=== PATIENT | female | born 1990 | race Caucasian/White ===

== ENCOUNTER → 2018-04-05 13:06 | Outpatient (CLI) | payer OTHER, BC, SELFPAY ==
[2018-04-05 14:09] LABS: hCG Titer Quant., Serum < 1 mIU/mL (<9 non-preg)
== END ==
PROVIDERS: Family Provider Family Medicine; PCP Family Medicine; Referring Provider Obstetrics & Gynecology; Visit Provider Obstetrics & Gynecology
DX: N91.2 Amenorrhea, unspecified (principal)
CPT/HCPCS: 36415; 84702

== ENCOUNTER → 2018-04-16 15:41 | Outpatient (CLI) | payer OTHER, BC, SELFPAY ==
[2018-04-16 16:15] LABS: Absolute Lymphocyte Count 1.91 X10^3/ul (0.83-4.51); Absolute Neutrophil Count 3.9 X10^3/uL (2.0-7.7); Basophil# 0.02 X10^3/uL; Basophil% 0.3 % (0-1); Eosinophil# 0.21 X10^3/uL; Eosinophils% 3.2 % (0-5); Hematocrit 38.1 % (37-47); Hemoglobin 13.2 g/dl (12.0-15.0); Lymphocyte # 1.91 X10^3/ul (4.0); Mean Corp Hgb Conc 34.6 g/gl (32-36); Mean Corpuscular Hgb 31.4 pg (27.0-32.0); Mean Corpuscular Volume 90.5 fL (81-99); Mean Platelet Vol. 9.6 fl (6.2-12.0); Monocyte# 0.54 X10^3/uL; Monocyte% 8.2 % (0-10); Neutrophil % 59.1 % (47-70); Platelet Count 218 K/mm3 (150-450); RBC Distribution Width CV 11.9 % (11.6-14.6); RBC Distribution Width SD 38.2 fl (35.1-43.9); Red Blood Count 4.21 M/mm3 (4.2-5.4); White Blood Count 6.6 K/mm3 (4.4-11.0)
[2018-04-16 16:18] LABS: POSITIVE COUNT NO; POSITIVE DIFFERENTIAL NO; POSITIVE MORPHOLOGY NO
[2018-04-16 16:41] LABS: Thyroid Stim Hormone (TSH) 1.93 uIU/mL (0.358-3.74)
== END ==
PROVIDERS: Family Provider Family Medicine; PCP Family Medicine; Referring Provider Nurse Practitioner Women's Health; Visit Provider Nurse Practitioner Women's Health
DX: R53.83 Other fatigue (principal)
CPT/HCPCS: 36415; 84443; 85025

== ENCOUNTER → 2018-04-23 10:14 | Outpatient (CLI) | payer OTHER, BC, SELFPAY ==
[2018-04-23 12:38] LABS: Pregnancy, Serum, hCG Quali. NEGATIVE Negative (0-9 Nonpreg)
== END ==
PROVIDERS: Nurse Practitioner Adult Health; Family Provider Family Medicine; PCP Family Medicine; Visit Provider Family Medicine
DX: R42 Dizziness and giddiness (principal); R11.0 Nausea
CPT/HCPCS: 36415; 84703

== ENCOUNTER → 2018-11-06 | Outpatient (CLI) | payer OTHER, SELFPAY ==
[2018-04-16 15:12] VITALS: BMI 29.9
[2018-11-06 16:50] LABS: Hemoglobin A1c 5.2 % (4.2-6.3)
[2018-11-06 17:11] LABS: Estradiol 75.6 pg/mL; Progesterone Level 2.91 ng/mL (See Comment); T4 Free Direct 0.98 ng/dL (0.76-1.46); Thyroid Stim Hormone (TSH) 2.04 uIU/mL (0.358-3.74)
[2018-11-06 17:46] LABS: hCG Titer Quant., Serum < 1 mIU/mL (1-3)
[2018-11-08 11:39] LABS: Thyroid Peroxidase AB 17 IU/mL (0-34)
[2018-11-11 14:37] LABS: HPV Reflexed? NOT INDICATED
== END | disposition home or self-care (01) ==
LOC: WOBLAB 16:00
PROVIDERS: Visit Provider Obstetrics & Gynecology
DX: N92.6 Irregular menstruation, unspecified (principal); Z12.4 Encounter for screening for malignant neoplasm of cervix
CPT/HCPCS: 36415; 82670; 83036; 84144; 84403; 84439; 84443; 84481; 84702; 86376; 88175; G0145

== ENCOUNTER → 2018-11-11 | Outpatient (CLI) | payer OTHER, SELFPAY ==
--- NOTE | 2018-11-11 16:02 | US_ITS ---
STUDY: ULTRASOUND TRANSVAGINAL CLINICAL: Female, 28 years old. Infertility. TECHNIQUE: Transvaginal COMPARISON: None. FINDINGS: Normal uterine size measuring 7.6 cm in maximal craniocaudal dimension. There are no myometrial masses. Normal endometrial thickness measuring 3.7 mm. There are no endometrial masses, and there is no fluid in the endometrial cavity. Normal uterine cervix. Normal right ovary, measuring 3.7 x 3.0 x 1.9 cm. There are multiple follicles without a dominant cyst. There is a complex cystic focus within the left ovary measuring 8.7 x 6.6 x 5.4 cm. There are round echogenic nonshadowing foci within the mass. There are curvilinear foci within the cystic mass. There is minimal internal vascularity. There is minimal normal ovarian parenchyma visualized. There is a small amount free fluid in the pelvis. Polycystic ovary disease: No. US/Pelvic (Non ) IMPRESSION: 8.7 x 6.6 x 5.4 cm left ovarian complex cystic lesion with an appearance most consistent with an underlying dermoid. Electronically Signed: Bharti Reinoso MD at 20:34 EDT Tel , Service support ,
--- NOTE | 2018-11-11 16:07 | US_ITS ---
STUDY: ULTRASOUND TRANSVAGINAL CLINICAL: Female, 28 years old. Infertility. TECHNIQUE: Transvaginal COMPARISON: None. FINDINGS: Normal uterine size measuring 7.6 cm in maximal craniocaudal dimension. There are no myometrial masses. Normal endometrial thickness measuring 3.7 mm. There are no endometrial masses, and there is no fluid in the endometrial cavity. Normal uterine cervix. Normal right ovary, measuring 3.7 x 3.0 x 1.9 cm. There are multiple follicles without a dominant cyst. There is a complex cystic focus within the left ovary measuring 8.7 x 6.6 x 5.4 cm. There are round echogenic nonshadowing foci within the mass. There are curvilinear foci within the cystic mass. There is minimal internal vascularity. There is minimal normal ovarian parenchyma visualized. There is a small amount free fluid in the pelvis. Polycystic ovary disease: No. US/Transvaginal Non- IMPRESSION: 8.7 x 6.6 x 5.4 cm left ovarian complex cystic lesion with an appearance most consistent with an underlying dermoid. Electronically Signed: Bharti Reinoso MD at 20:34 EDT Tel , Service support ,
[2018-11-11 17:37] LABS: Estradiol 37.2 pg/mL; Follicle Stimulating Hormone 7.4 mIU/mL
== END | disposition home or self-care (01) ==
LOC: WOBLAB 15:21
PROVIDERS: Visit Provider Obstetrics & Gynecology
DX: N93.8 Other specified abnormal uterine and vaginal bleeding (principal)
CPT/HCPCS: 36415; 76830; 76856; 82670; 83001; 83516; 93976

== ENCOUNTER → 2018-11-21 | Outpatient (CLI) | payer OTHER, SELFPAY ==
--- NOTE | 2018-11-21 06:08 | CT_ITS ---
STUDY: CT PELVIS WITH CONTRAST REASON FOR EXAM: Female, 28 years old. LEFT ovarian cyst RADIATION DOSAGE (If Supplied By Facility): CTDIvol = ( 28.21 ) mGy, DLP = ( 841.75 ) mGycm TECHNIQUE: Transaxial imaging of the pelvis was performed without oral contrast. 100ML IV Isovue 300 was administered intravenously. Individualized dose optimization techniques were used for this CT. COMPARISON: None. FINDINGS: Normal urinary bladder. Normal visualized small intestine. Normal visualized colon. There is minimal free pelvic fluid which is nonspecific. There is a LEFT adnexal mass measuring 5.3 x 8 x 5.8 cm. This is predominantly fatty with areas of soft tissue density and calcification. The lesion is consistent with an ovarian dermoid. The RIGHT ovary is unremarkable. The uterus is within normal limits. Normal visualized pelvic arteries. Normal abdominal wall. Normal osseous structures. CT/Pelvis WITH IV Contrast IMPRESSION: There is a LEFT adnexal mass measuring 5.3 x 8 x 5.8 cm. This is predominantly fatty with areas of soft tissue density and calcification. The lesion is consistent with an ovarian dermoid. The uterus is within normal limits. There is minimal free pelvic fluid which is nonspecific. Electronically Signed: Oleg Cunningham MD at 6:44 EDT , Service support ,
== END | disposition home or self-care (01) ==
LOC: CT 05:59
PROVIDERS: Family Provider Family Medicine; PCP Family Medicine; Referring Provider Obstetrics & Gynecology; Visit Provider Obstetrics & Gynecology
DX: N83.202 Unspecified ovarian cyst, left side (principal)
CPT/HCPCS: 72193; Q9967

== ENCOUNTER 2019-01-02 19:02 | Emergency (ER) | payer OTHER, SELFPAY ==
[2019-01-02 19:03] VITALS: BP 132/72; PULSE 64; RESP 16; TEMP 36.8; O2SAT 100; BMI 29.1
--- NOTE | 2019-01-02 19:20 | RAD_ITS ---
STUDY: X-RAY - RIGHT HAND, ATTENTION THUMB FINGER REASON FOR EXAM: Female, 28 years old. Trauma TECHNIQUE: 3 view(s) of the finger were obtained. COMPARISON: None. FINDINGS: Normal metacarpal head. Normal metacarpophalangeal joint. Normal proximal phalanx. Normal middle phalanx. Normal distal phalanx. Normal proximal interphalangeal joint. There appears to be a subtle hairline fracture of the dorsal surface of the base of the distal phalanx extending to the articular surface. RAD/Finger(s) Min 2 Views IMPRESSION: Nondisplaced intra-articular fracture of the base of the distal phalanx Electronically Signed: Kirby Hdz MD at 19:39 EDT , Service support ,
--- NOTE | 2019-01-02 21:22 | ED.DCSUM_ITS ---
- ER Visit Summary Date of Service: 01/02/19 Chief Complaint: Left thumb injury History of Present Illness: The patient is a 28 F who presents with a left thumb injury that occurred today. Patient was playing volleyball and had an axial load to her left thumb. Patient states the pain and swelling is gotten progressively worse. Patient denies any paresthesias or weakness. Patient denies any other injuries. Patient states her pain is worse with movement of her thumb. Physical Examination: Vital signs are stable. Patient is afebrile. Patient is in no acute distress. There is tenderness, edema, and ecchymosis over the distal phalanx of the right thumb. There is no obvious deformity noted. Range of motion was limited in flexion and extension of the IP joint of the right thumb. Sensation was intact light touch in all digits. Capillary refill is less than 2 seconds in all digits. Test Results: X-rays of the right thumb were obtained. There is nondisplaced fracture of the distal phalanx of the right thumb. Emergency Department Course and Treatment: Patient was placed in aluminum splint. Patient was instructed to ice and elevate the right thumb. Patient was instructed to take Tylenol or ibuprofen as needed for pain. Patient was instructed to follow-up with her primary care physician in 5 to 7 days. Patient was also given a referral for orthopedics for follow-up if necessary. Patient understood and was agreeable with the plan. All questions were answered. Disposition: Discharge home Impression: Fracture right first distal phalanx This note was generated with [employer] dictation software. It may contain incorrect words, spelling, and punctuation that were not noted in review of the chart prior to signing ED Disposition - Plan for ED Patient: Disposition: Home or Assisted Living Diagnosis: Fracture of distal phalanx of right thumb Instructions: FRACTURE, Finger (Closed) Referrals: Nicci Costello MD [Primary Care Provider] - 5-7 Days Tomas Flores MD [STAFF PHYSICIAN] - 10-14 Days if not better
--- NOTE | 2019-01-13 13:44 | PCM.HP.STD ---
Problem List (1) Left ovarian cyst Status: Acute History of Present Illness Date of Admission: 01/14/19 The patient is a 28 year old F, nulligravid with left ovarian cyst. Cyst is suspected to be a dermoid. ] Past Medical History Allergies No Known Allergies Allergy (Verified 01/07/19 13:05) Home Medications: Ambulatory Orders Medication Instructions Recorded Multivitamin [Multiple Vitamins] 1 ea PO DAILY 01/02/19 Surgical History: Surgical History (Last Updated 04/16/18 @ 15:15 by María Elena Orourke) History of urinary tract surgery Z98.890 Surgical History: - - bilateral ureteral implantation Smoking Status: Never smoker Review of Systems Constitutional: Denies: Chills, Fever, Weight Change HEENT: Denies: Difficulty Hearing, Difficulty Swallowing, Nasal bleeding, Nasal Congestion, Sore Throat Cardiovascular: Denies: Chest Pain, Palpitations Respiratory: Denies: Shortness of Breath, Wheezing Gastrointestinal: Denies: Constipation, Diarrhea, Nausea, Vomiting Genitourinary: Denies: Dysuria, Frequency, Hematuria, Incontinence, Urgency Musculoskeletal: Denies: Joint Pain, Muscle pain Skin: Denies: Lesions, Skin Changes Neurological: Denies: Focal weakness, Numbness Psychiatric: Denies: Anxiety, Depression Endocrine: Denies: Heat/ Cold Intolerance Hematologic/ Lymphatic: Denies: Easy Bleeding VTE Information - Inpt Only VTE Present on Admission: No VTE Mechan Device Prophylaxis: SCD's VTE Pharm Prophylaxis ordered?: No Reason prophylaxis not ordered:: Procedure Not Indicated Subjective: Healthy appearing female of stated age. - Physical Exam General: No apparent distress, Well developed, Well nourished HEENT: PERRLA, EOMI, Normocephalic Neck: No Nodes, No Nuchal Rigidity, Thyroid Normal Size and Texture Lungs: Clear to auscultation - bilaterally Cardiovascular: Regular rate, No murmurs, No rub noted Abdomen: Soft, Non Tender, Non-Distended, - - No guarding, hepatomegaly, splenomegaly, rebound tenderness Extremities: No clubbing, No cyanosis, No edema, No Calf Tenderness Skin: No rashes, Other - No ulcers, lesions Musculoskeletal: No Tenderness to Palpation of Joints or Extremities, No Muscle Wasting Lymphatic: No Cervical, Supraclavicular, or Inguinal Adenopathy Neurological: Cranial nerves II-XII grossly intact Psych/Mental Status: Alert and oriented to time, place, person, mood and affect Vital Signs Temp Pulse Resp BP Pulse Ox 98.2 F 64 16 132/72 H 100 01/02/19 19:03 01/02/19 19:03 01/02/19 19:03 01/02/19 19:03 01/02/19 19:03 Oxygen Delivery Method Room Air Weight: 175 lb Body Mass Index (BMI) 29.1 Assessment/Plan All Active Problems (Last Reviewed 04/16/18 @ 15:15 by María Elena Orourke) Left ovarian cyst (Acute) 1. Left ovarian cyst suspected dermoid cyst from imaging studies ;planned removal and possible oophorectomy desires fertility - bilateral chromatubation planned
== END 2019-01-02 21:43 | disposition home or self-care (01) ==
PROVIDERS: Emergency Provider Emergency Medicine; Family Provider Family Medicine; PCP Family Medicine
DX: S62.524A Nondisplaced fracture of distal phalanx of right thumb, initial encounter for closed fracture (principal); X50.1XXA Overexertion from prolonged static or awkward postures, initial encounter; Y93.68 Activity, volleyball (beach) (court); Y92.9 Unspecified place or not applicable
CPT/HCPCS: 73140; 99283

== ENCOUNTER 2019-01-14 16:20 | Inpatient (IN) | payer OTHER, SELFPAY ==
[2019-01-03 10:22] LABS: Hematocrit 37.4 % (37-47); Hemoglobin 12.6 g/dl (12.0-15.0); Mean Corp Hgb Conc 33.7 g/gl (32-36); Mean Corpuscular Hgb 30.6 pg (27.0-32.0); Mean Corpuscular Volume 90.8 fL (81-99); Mean Platelet Vol. 9.8 fl (6.2-12.0); Platelet Count 211 K/mm3 (150-450); RBC Distribution Width CV 12.3 % (11.6-14.6); RBC Distribution Width SD 40.6 fl (35.1-43.9); Red Blood Count 4.12 M/mm3 (4.2-5.4)
[2019-01-03 10:36] LABS: Scan Indicated on CBC? Y/N NO
[2019-01-03 10:37] LABS: Internal QC Validated? YES +Cl - CLEAR BKGD; Pregnancy, Urine Negative Negative
[2019-01-03 10:39] LABS: International Normalized Ratio 1.3; Prothrombin Time (Protime)PT. 15.8 SECONDS (11.7-14.9)
[2019-01-03 10:40] LABS: Partial Thromboplast Time 39.7 Seconds (24.1-36.2)
[2019-01-14] VITALS (9 sets, daily range): BP systolic 104–124; BP diastolic 54–77; PULSE 55–97; RESP 16–18; TEMP 36.3–37.5; O2SAT 97–100; BMI 29.7
[2019-01-14 11:51] LABS: Internal QC Validated? YES +Cl - CLEAR BKGD; Pregnancy, Urine Negative Negative
--- NOTE | 2019-01-14 13:00 | CYST_PTH ---
PATIENT: EULALIA STEVENS LOC: [facility] U#:[id number] AGE/SX: 28/F ROOM: [facility]316 RE01/14/[address]: Dr. Masha Mendoza MD : 1990 BED: 1 DIS: 01/15/2019 SPEC #: [id number] RECD: 01/14/19 16:38 STATUS: JUDIT REBoni #: [id number] CHRISTINE: 01/14/19 13:[address]: Masha Mendoza DEPT: SURGICAL PATHOLOGY RECD BY: Evin Mccormack ENTERED: 01/15/19 12:33 SP TYPE: Cyst OTHR DR: Dr. Nicci Costello MD Tissues: OVARIAN CYST Procedures: Decalcification bone/plaque Surgery Specimen Level V HEADER OPERATION: Laparoscopic left oophorectomy PRE-OP DIAGNOSIS: Left ovarian cyst TISSUE SUBMITTED: Left ovarian cyst MICROSCOPIC DIAGNOSIS Left ovarian cyst, oophorectomy: Ovary - Mature cystic teratoma (dermoid cyst). Fallopian tube - no pathologic diagnosis. EDGARDO:jose 01/20/19 MICROSCOPIC DESCRIPTION Slides are reviewed. GROSS DESCRIPTION Received in fixative is one container labeled with the patient's name and designated left ovarian cyst. The specimen consists of a cystic ovary weighing 137 gm and detached fallopian tube. The fallopian tube measures 5.5 cm in length and 0.5 cm in diameter. The fimbrial end is identified. The portion of ovarian cyst appears to be adherent to the fimbrial end of the fallopian tube. Sections reveal unremarkable cut surfaces. The cystic ovary measures 8 x 6 x 5 cm. Portion of the capsule appears to be peeled off from the surface. The outer surface appears smooth. The outer surface of the resection margin is inked black and the portion of rough surface, resection margin is inked blue. The cystic ovary is distended with yellowish sebum-like material. The cyst wall is smooth and measures 0.1 cm in greatest dimension. A focal solid area is noted measuring 2.5 x 1.5 x 1 cm. This area contains a portion of bone. Utility Lineman sections are submitted in four cassettes as follows: 1 - fallopian tube including adherent portion of the cystic ovary, 2 - cystic ovary including solid portion of the cyst, 3 - more sections of the ovary, 4 - solid portion of the cystic ovary with bone after decalcification. / EDGARDO:jose 01/15/19 TC:1 CPT: 42398, 24552
--- NOTE | 2019-01-14 13:00 | HP.PCM_ITS ---
History Date of Admission: 01/14/19 History of this : This is a 28 year-old, G [], P [], at weeks gestational age. Surgical History: Surgical History (Last Updated 04/16/18 @ 15:15 by María Elena Orourke) History of urinary tract surgery Z98.890 Allergies No Known Allergies Allergy (Verified 01/14/19 11:46) Home Medications: Home Medications Multivitamin [Multiple Vitamins] 1 ea PO DAILY 01/02/19 Smoking Status: Never smoker History Past Pregnancies: Past Pregnancies Delivery Date Name GA/Weeks Outcome Route Weight Infant Gender Labor Length Anesthesia Delivery Location Provider FOB Review of Systems Constitutional: Denies: Chills, Fever, Weight Change HEENT: Denies: Difficulty Hearing, Difficulty Swallowing, Nasal bleeding, Nasal Congestion, Sore Throat Cardiovascular: Denies: Chest Pain, Palpitations Respiratory: Denies: Shortness of Breath, Wheezing Gastrointestinal: Denies: Constipation, Diarrhea, Nausea, Vomiting Genitourinary: Denies: Dysuria, Frequency, Hematuria, Incontinence, Urgency Musculoskeletal: Denies: Joint Pain, Muscle pain Skin: Denies: Lesions, Skin Changes Neurological: Denies: Focal weakness, Numbness Psychiatric: Denies: Anxiety, Depression Endocrine: Denies: Heat/ Cold Intolerance Hematologic/ Lymphatic: Denies: Easy Bleeding Physical Exam Vitals: Vital Signs Temp Pulse Resp BP Pulse Ox 98.8 F 82 16 116/77 100 01/14/19 11:46 01/14/19 11:46 01/14/19 11:46 01/14/19 11:46 01/14/19 11:46 General: Alert, Oriented x3, No apparent distress HEENT: Atraumatic, Normocephalic. Negative for: Thyromegaly, Lymphadenopathy Cardiovascular: Regular rate, Regular Rhythm Lungs: Clear to auscultation Abdomen: Bowel Sounds Present, Gravid Neurological: Deep Tendon Reflexes 2+/4 and Symmetrical, Neuro grossly intact [employer]NAGER: Normal external genitalia. Negative for: Vulvar lesions Assessment/Plan All Active Problems (Last Reviewed 04/16/18 @ 15:15 by María Elena Orourke) Left ovarian cyst (Acute) This is a 28 year-old, G [], P [], at weeks gestational age. 1. Suspected left dermoid cyst planned removal the preop preparation, the intraop procedures and the post op recovery reviewed. The risks of ovary removal, infection, bleeding and other organ damage including bladder, bowel and ureteral injury reviewed, accepted and consented. 2. Infertility chromapertubation
[2019-01-14] MEDS: Ketorolac 30 MG/ML Syringe IV ×2 (14:43→19:54)
--- NOTE | 2019-01-14 14:53 | PCM.OPRPT ---
Report of Operation Date of Procedure: 01/14/19 Pre-Operative Diagnosis: Left adnexal mass and infertility Post-Operative Diagnosis: Same plus lack of fallopian tube spillage with chromotubation Surgery/Procedure Performed:: Diagnostic laparoscopy, operative laparotomy, left salpingo-oophorectomy, chromotubation Description of Surgical Findings:: Uterus was sounded to approximately 9 cm in anterior position. Upon entry into the abdominal cavity it was noted that was a very large left ovarian cyst that was somewhat adhesed to the sidewall and measuring larger than the uterus. Was also noted that during chromotubation there was no spillage of the dye through the remaining right fallopian tube Type of Anesthesia:: General Anesthesiologist: Richie Cline Special Medications: Cefotetan. 2 g IV preop Specimen's removed: Left ovary and left fallopian tube Drains: None Estimated Blood Loss (mL): Minimal Fluids Replaced: Lactated Ringer Description of Procedure: presented in NPO status to the OR. Placed on OR bed and underwent General anesthesia after appropriate time out occurred. Placed in dorsal lithotomy position via Adan stirrups. Weighted speculum to vagina and uterine manipulator to cervix and wilkins to the bladder. Changed gloves. Incision at umbilicus and veress needle placed. Water test confirmed abdominal placement. 2 L CO2 placed into the abdomen. Veress removed and replaced with 10/11 disposable trocar. 2 additional 5mm disposable trocars at right and left lower quadrants. Direct visualization and hemostasis noted. Enlarged left ovary completely consistent with the cyst and distorted fallopian tube. Ligasure energy used to cauterize and transect the IP ligament and the uterine - ovarian ligament. Adhesive pieces removed from the pelvic side wall as well. Once ovary free, the 10 endocatch bag placed into the umbilicus. The cyst did not fit into the bag. It was also determined the 15 endocatch bag would not accommodate the cyst either. Laparotomy incision at prior Phannensteil incision site for ureteral implantation to the bladder occurred with scalpel. The fascia was knicked in the midline and incised bilateral. The rectus muscle removed from the fascia superior and inferior. Peritoneum was entered sharply and extended to accommodate retractors. The freed ovarian cyst was located and brought through the incision intact. Irrigation of the pelvis occurred. Rectus muscle re-approximated in the midline. The fascial layer closed with 0-vicryl suture in running, interlocking stitch. Irrigation of the subcuticular layer. 3-0vicryl used to close this layer in running stitch. Irrigation again and skin closed with 4-0 Monocryl. CO2 infusion into abdomen once again. Irrigation of pelvis and hemostasis noted. I infused the methylene blue into the uterine manipulator with no blue dye spillage to the abdomen, through the fallopian tube. Resistance noted with attempted push of dye through the cervix/uterus. All instruments removed from the vagina included wilkins. Changed gloves. Once again surveyed the pelvis and abdomen via laparoscope. Hemostasis noted. Bilateral ureters peristalsing. Trocars removed under direct visualization. CO2 removed from abdomen. Umbilicus closed with 0 vicryl at the fascia and subcuticular regions. 3-0 vicryl at prior 5mm trocar sites. Sponge, instrument and needle counts correct x 2. Tissue to pathology. Grafts/Implants Used: None - Complications None - Admit VTE Documentation VTE Present on Admission: No VTE Mechan Device Prophylaxis: SCD's VTE Pharm Prophylaxis ordered?: No Reason prophylaxis not ordered:: Procedure Not Indicated
[2019-01-14] MEDS: Lactated Ringers 1,000 ML 125 ML IV ×2 (16:04→21:13)
[2019-01-14] MEDS: 0.9% NaCl Peripheral Flush Adult/Peds IV (21:01)
[2019-01-14] MEDS: Ondansetron 4 MG/2 ML Vial IV (21:01)
--- NOTE | 2019-01-14 21:45 | NURSING ---
cps called to see pt for incentive spirometer instruction post op
--- NOTE | 2019-01-14 21:52 | PCM.PN.BLA ---
Progress Note Called by RN: pt with significant nasal congestion. Requesting RX for this. BPs wnl. Not hypertensive Sudafed 30 mg po q 6 hr prn Afrin nasal spray 1 spray per nostril bid prn congestion.
[2019-01-14] MEDS: Docusate Sodium 100 MG Capsule PO (22:48)
[2019-01-15] MEDS: Acetaminophen 500 MG Tablet 1000 MG PO (00:33)
[2019-01-15] MEDS: 0.9% NaCl Peripheral Flush Adult/Peds IV ×2 (01:12→06:30)
[2019-01-15] MEDS: Ketorolac 30 MG/ML Syringe IV ×2 (01:13→06:33)
[2019-01-15 01:15] VITALS: BP 108/54; PULSE 74; RESP 16; TEMP 37.6; O2SAT 97
[2019-01-15] MEDS: Lactated Ringers 1,000 ML 125 ML IV (05:07)
[2019-01-15] MEDS: Ondansetron 4 MG/2 ML Vial IV (06:33)
[2019-01-15 06:40] LABS: Hematocrit 33.4 % (37-47); Hemoglobin 11.5 g/dL (12.0-15.0); Mean Corp Hgb Conc 34.4 g/dL (32-36); Mean Platelet Vol. 9.9 fl (6.2-12.0); Platelet Count 181 K/mm3 (150-450); RBC Distribution Width CV 11.6 % (11.6-14.6); Red Blood Count 3.71 M/mm3 (4.2-5.4); White Blood Count 8.3 K/mm3 (4.4-11.0)
[2019-01-15 06:45] VITALS: BP 112/59; PULSE 72; RESP 16; TEMP 37.2; O2SAT 100
[2019-01-15 08:19] VITALS: O2SAT 97
--- NOTE | 2019-01-15 08:40 | DCINST_ITS ---
Discharge Diet: - - soft diet x 3 days and then slow progression to normal diet. Increase water intake to a minimum of 120 ounces daily x 1 week. Discharge Activity: Return to Normal Activity, May Not Drive - while taking narcotic pain medications., May Shower May resume sexual activity in: 4 weeks Weight Bearing Status: Full weight bearing Lifting Restrictions: 5 pounds Additional Activity Instructions:: Ambulate often with periods of rest in between. Call your doctor if your incision/area has: Sudden Increased Bleeding Call your doctor if you observe: Fever of 101 or Higher, Inability to urinate, Inability to have a bowel movement, Using more than one pad per hour Remove Dressing in (days):: 1 - Remove all dressings with warm, soapy water on 01/16/19 Cleanse incision/area with: Soap & Water Allergies/Adverse Reactions: Allergies No Known Allergies Allergy (Verified 01/14/19 11:46) Medications to take at Discharge Multivitamin [Multiple Vitamins] 1 ea PO DAILY 01/02/19 Primary Care Physician: Nicci Costello MD [Primary Care Provider] - Test Results: Test results from this visit will be discussed in further detail at your follow- up appointment, if applicable. Please Follow Up With: Masha Mendoza MD When: Next week - call for appointment
[2019-01-15] MEDS: Docusate Sodium 100 MG Capsule PO (09:18)
--- NOTE | 2019-01-15 09:18 | PCM.PN.OB ---
Subjective: Ambulating well. Has had vomiting but had retained the scolpolamine patch. Voiding well. No flatus. - Physical Exam General: No apparent distress, Well developed, Well nourished HEENT: PERRLA, EOMI, Normocephalic Neck: No Nodes, No Nuchal Rigidity, Thyroid Normal Size and Texture Lungs: Clear to auscultation - bilaterally Cardiovascular: Regular rate, No murmurs, No rub noted Abdomen: Soft, Non Tender, Non-Distended, - - No guarding, hepatomegaly, splenomegaly, rebound tenderness. Phannensteil incision with serosanguinous fluid and instructed to remove the telfa and place gauze for absorption Extremities: No clubbing, No cyanosis, No edema, No Calf Tenderness Skin: No rashes, Other - No ulcers, lesions Musculoskeletal: No Tenderness to Palpation of Joints or Extremities, No Muscle Wasting Lymphatic: No Cervical, Supraclavicular, or Inguinal Adenopathy Neurological: Cranial nerves II-XII grossly intact Psych/Mental Status: Alert and oriented to time, place, person, mood and affect Vital Signs Temp Pulse Resp BP Pulse Ox 98.9 F 72 16 112/59 L 97 01/15/19 06:45 01/15/19 06:45 01/15/19 06:45 01/15/19 06:45 01/15/19 08:19 Oxygen Delivery Method Room Air Weight: 179 lb 0.246 oz Body Mass Index (BMI) 29.7 Intake and Output for Last 24 Hours 01/13/19 01/14/19 01/15/19 23:59 23:59 23:59 Intake Total 2256 / 2256 1020 / 1020 Output Total 850 / 850 900 / 900 Balance 1406 / 1406 120 / 120 Laboratory Tests Past 24 Hrs 01/14/19 01/15/19 11:30 05:40 WBC 8.3 RBC 3.71 L Hgb 11.5 L Hct 33.4 L MCV 90.0 MCH 31.0 MCHC 34.4 RDW Std Deviation 38.0 RDW Coeff of Nicol 11.6 Plt Count 181 MPV 9.9 Urine Test Negative Medical Necessity - Tobacco Use Smoking Status: Never smoker Assessment/Plan All Active Problems (Last Reviewed 04/16/18 @ 15:15 by María Elena Orourke) Left ovarian cyst (Acute) 1. POD #1 - Operative laparotomy for LSO ambulating well voiding well needs flatus prior to discharge attempt glycerin suppository
--- NOTE | 2019-01-15 11:10 | CASEMGMT ---
RN [facility] Face to Face with patient for initial transition planning/care coordination assessment. RN CM introduced self and role at [facility]. Patient lying in bed, alert and oriented, at bedside. Patient willing to participate in assessment and is able to answer all questions appropriately. Care providers, pharmacy, and demographics verified. Patient wishes to discharge home, denies need for home health at this time. Chart reviewed and no needs identified. Patient states she has no further needs or concerns at this time. CM to follow for discharge planning needs that may arise. Disposition Plan: Patient to discharge home with family support and follow-up plans in place.
== END 2019-01-15 11:55 | disposition home or self-care (01) | DRG 743 ==
LOC: SDC 01-15 08:49
PROVIDERS: Anesthesiology; Admitting Provider Obstetrics & Gynecology; Family Provider Family Medicine; PCP Family Medicine; Referring Provider Obstetrics & Gynecology; Visit Provider Obstetrics & Gynecology
PROC: 0UT14ZZ Resection of Left Ovary, Percutaneous Endoscopic Approach (ICD-10-PCS; CPT 58720; principal; 2019-01-14 12:45)
DX: D27.1 Benign neoplasm of left ovary (principal); N97.9 Female infertility, unspecified; R09.81 Nasal congestion
CPT/HCPCS: 36415; 81025; 85027; 85610; 85730; 88305; 88307; 88311; J7120; A4216; J2405; Q9968

== ENCOUNTER → 2019-02-04 | Outpatient (CLI) | payer OTHER, SELFPAY ==
[2019-01-14 16:33] VITALS: BMI 29.7
[2019-02-04 11:14] LABS: Glucose GTT-30 minutes 111 mg/dL (110-170)
[2019-02-04 11:16] LABS: AST(SGOT) 11 U/L (15-37); Alanine Aminotransfer ALT/SGPT 15 U/L (13-56); Albumin, Serum 3.7 g/dL (3.2-5.0); Alkaline Phosphatase 48 U/L (45-117); BUN 12 mg/dL (7-18); Bilirubin, Direct 0.07 mg/dL (0.00-0.30); Calcium,Total 8.7 mg/dL (8.5-10.1); Chloride 109 mmol/L (98-107); Creatinine, Serum 0.75 mg/dL (0.55-1.02); EST Glomerular Filtration Rate 99 mL/min (>60); Est Glom Filt Rate - Afr Amer 120 mL/min (>60); Globulin 3.6 g/dL (2.2-4.2); Glucose 84 mg/dL (74-106); Phosphorus 2.8 mg/dL (2.5-4.9); Potassium 4.3 mmol/L (3.5-5.1); Protein, Total 7.3 g/dL (6.4-8.2); Sodium Level 141 mmol/L (136-145)
[2019-02-04 11:22] LABS: Glucose GTT- Fasting 87 mg/dL (74-106)
[2019-02-04 12:20] LABS: Glucose GTT- 1 Hour 81 mg/dL (120-170)
[2019-02-04 13:07] LABS: Glucose GTT- 2 Hour 80 mg/dL (70-120)
== END | disposition home or self-care (01) ==
LOC: LAB 09:34
PROVIDERS: Family Provider Family Medicine; PCP Family Medicine; Referring Provider Obstetrics & Gynecology Reproductive Endocrinology; Visit Provider Obstetrics & Gynecology Reproductive Endocrinology
DX: E16.8 Other specified disorders of pancreatic internal secretion (principal)
CPT/HCPCS: 36415; 80069; 82247; 82248; 82951; 82952; 83525; 84075; 84156; 84450; 84460

== ENCOUNTER → 2019-06-26 | Outpatient (CLI) | payer OTHER, SELFPAY ==
[2019-01-14 16:33] VITALS: BMI 29.7
[2019-06-26 08:35] LABS: hCG Titer Quant., Serum 130 mIU/mL (1-3)
== END | disposition home or self-care (01) ==
LOC: LAB 07:40
PROVIDERS: Family Provider Family Medicine; PCP Family Medicine; Referring Provider Obstetrics & Gynecology Reproductive Endocrinology; Visit Provider Obstetrics & Gynecology Reproductive Endocrinology
DX: Z32.00 Encounter for pregnancy test, result unknown (principal)
CPT/HCPCS: 36415; 84702

== ENCOUNTER → 2019-06-30 06:44 | Outpatient (CLI) | payer OTHER, SELFPAY ==
[2019-01-14 16:33] VITALS: BMI 29.7
[2019-06-30 07:25] LABS: hCG Titer Quant., Serum 803 mIU/mL (1-3)
== END ==
PROVIDERS: Family Provider Family Medicine; PCP Family Medicine; Referring Provider Obstetrics & Gynecology Reproductive Endocrinology; Visit Provider Obstetrics & Gynecology Reproductive Endocrinology
DX: Z32.01 Encounter for pregnancy test, result positive (principal)
CPT/HCPCS: 36415; 84702

== ENCOUNTER → 2019-08-28 14:30 | Outpatient (CLI) | payer OTHER, SELFPAY ==
[2019-01-14 16:33] VITALS: BMI 29.7
[2019-08-28 16:11] LABS: Amphetamine Urine VISTA NEGATIVE (<1000 ng/mL); Barbiturate Urine VISTA NEGATIVE (< 200 ng/mL); Benzodiazepine Urine VISTA NEGATIVE (< 200 ng/mL); Cocaine Urine VISTA NEGATIVE (< 300 ng/mL); Ecstacy Urine VISTA NEGATIVE (< 500 ng/mL); Methadone Urine VISTA NEGATIVE (< 300 ng/mL); PCP Urine VISTA NEGATIVE (< 25 ng/mL); THC Urine VISTA NEGATIVE (< 50 ng/mL); Vista UDS pH Range 6
[2019-08-29 10:18] LABS: HIV - WCH Non-Reactive (Nonreactive); Hepatitis C Antibody Non-Reactive (Nonreactive)
== END ==
PROVIDERS: PCP Family Medicine; Referring Provider Obstetrics & Gynecology; Visit Provider Obstetrics & Gynecology
DX: O09.819 Supervision of pregnancy resulting from assisted reproductive technology, unspecified trimester (principal); Z3A.00 Weeks of gestation of pregnancy not specified
CPT/HCPCS: 36415; 80307; 86703; 86803; 87086; 87088

== ENCOUNTER → 2019-12-05 12:52 | Outpatient (CLI) | payer OTHER, SELFPAY ==
[2019-01-14 16:33] VITALS: BMI 29.7
[2019-12-05 13:02] LABS: Hematocrit 36.2 % (37-47); Hemoglobin 12.4 g/dL (12.0-15.0); Mean Corp Hgb Conc 34.3 g/dL (32-36); Mean Corpuscular Hgb 32.2 pg (27.0-32.0); Mean Platelet Vol. 9.8 fl (6.2-12.0); Platelet Count 220 K/mm3 (150-450); RBC Distribution Width CV 13.2 % (11.6-14.6); RBC Distribution Width SD 45.1 fl (35.1-43.9); Red Blood Count 3.85 M/mm3 (4.2-5.4); White Blood Count 9.4 K/mm3 (4.4-11.0)
[2019-12-05 13:25] LABS: Glucose Challenge Gest 1H 50g 102 mg/dL (70-140)
== END ==
PROVIDERS: PCP Family Medicine; Referring Provider Obstetrics & Gynecology; Visit Provider Obstetrics & Gynecology
DX: Z34.80 Encounter for supervision of other normal pregnancy, unspecified trimester (principal)
CPT/HCPCS: 36415; 82950; 85027

== ENCOUNTER → 2020-01-29 07:26 | Outpatient (CLI) | payer OTHER, SELFPAY ==
[2019-01-14 16:33] VITALS: BMI 29.7
[2020-01-29 10:18] LABS: Hepatitis C Antibody Non-Reactive (Nonreactive)
== END ==
PROVIDERS: Advanced Practice Midwife; PCP Family Medicine; Referring Provider Advanced Practice Midwife; Visit Provider Advanced Practice Midwife
DX: Z34.03 Encounter for supervision of normal first pregnancy, third trimester (principal)
CPT/HCPCS: 36415; 86803

== ENCOUNTER 2020-03-11 20:55 | Inpatient (IN) | payer OTHER, SELFPAY ==
[2019-01-14 16:33] VITALS: BMI 29.7
[2020-03-11 21:05] VITALS: BP 123/82; PULSE 83; TEMP 37.2; O2SAT 98
[2020-03-11 21:15] VITALS: BMI 34.6
[2020-03-11] MEDS: 0.9% Saline Lock 10 ML Syringe IV (21:30)
--- NOTE | 2020-03-11 21:46 | PCM.HP.OB ---
- Problem List (1) 41 weeks gestation of Status: Acute (2) resulting from assisted reproductive technology Status: Acute History Date of Admission: 01/14/19 Final YARA: 03/04/20 Gestational age: 41 Weeks and 0 Days History of this : This is a 29 year-old, G [1], P [0], at 41 weeks gestational age here for induction of labor for post-dates. Patient denies any loss of fluid, vaginal bleeding or regular contractions. Positive movement. resulted from assisted reproductive technology (embryo transfer). course has been uncomplicated. Surgical History: Surgical History (Last Updated 04/16/18 @ 15:15 by María Elena Orourke) History of urinary tract surgery Z98.890 Allergies No Known Allergies Allergy (Verified 03/11/20 21:15) Home Medications: Home Medications Aspirin [Aspirin, Baby] 81 mg PO DAILY@0800 03/11/20 Vit No.130/Iron/Folic [ Tablet] 1 ea PO DAILY 03/11/20 Smoking Status: Never smoker Number of Fetus(es): 1 NST - FHR Rate Baby A Baseline: 135 Variability:: Moderate Accelerations:: 15 x 15 Decelerations:: None NST Reactive:: Yes FHR Category:: Category I Uterine Activity:: irritability History Past Pregnancies: Past Pregnancies Delivery Date Name GA/ Weeks Outcome Route Wt Sex Labor Length Anesthesia Delivery Location Provider FOB Labs: A+ Rubella - non immune HB- negative RPR- NR GC/CH - neg GBS neg COVID 19 - negative Review of Systems Constitutional: Denies: Anorexia, Chills, Fever Eyes: Denies: Blurred vision HEENT: Denies: Head Aches Cardiovascular: Denies: Chest Pain Respiratory: Denies: Cough, Shortness of Breath Gastrointestinal: Denies: Abdominal Pain Genitourinary: Denies: Dysuria Neurological: Denies: Blurred vision, Headaches Physical Exam Vitals: Vital Signs Temp Pulse BP Pulse Ox 98.9 F 83 123/82 H 98 03/11/20 21:05 03/11/20 21:05 03/11/20 21:05 03/11/20 21:05 General: Alert, Oriented x3, Cooperative HEENT: Atraumatic Cardiovascular: Regular rate Lungs: Normal air movement Abdomen: Soft, Non Tender, Gravid Neurological: Cranial nerves II-XII grossly intact Estimated gestational size: Appropriate for gestational size Assessment/Plan All Active Problems (Last Reviewed 04/16/18 @ 15:15 by María Elena Orourke) Left ovarian cyst (Acute) 41 weeks gestation of (Acute) resulting from assisted reproductive technology (Acute) This is a 29 year-old, G [1], P [0], at 41 weeks gestational age for induction of labor. Admit to labor and delivery Labs per protocol IV fluids per policy GBS negative Start Cytotec 25 mcg PO every [address] Desir bulb in the morning Dr. Singleton notified of admission and is collaborating physician
[2020-03-11 22:18] LABS: Absolute Lymphocyte Count 1.75 X10^3/uL (0.83-4.51); Absolute Neutrophil Count 6.4 X10^3/uL (2.0-7.7); Basophil# 0.02 X10^3/uL; Basophil% 0.2 % (0-1); Eosinophil# 0.09 X10^3/uL; Hematocrit 35.9 % (37-47); Hemoglobin 12.8 g/dL (12.0-15.0); Lymphocyte # 1.75 X10^3/ul (4.0); Lymphocyte % 19.4 % (19-41); Mean Corp Hgb Conc 35.7 g/dL (32-36); Mean Corpuscular Hgb 33.2 pg (27.0-32.0); Mean Corpuscular Volume 93.2 fL (81-99); Mean Platelet Vol. 10.4 fl (6.2-12.0); Monocyte# 0.76 X10^3/uL; Monocyte% 8.4 % (0-10); NRBC Flagged by Analyzer 0 % (0-5); Neutrophil # 6.37 X10^3/uL (2.7-7.7); Neutrophil % 70.6 % (47-70); Platelet Count 182 K/mm3 (150-450); RBC Distribution Width CV 12.2 % (11.6-14.6); RBC Distribution Width SD 41.4 fl (35.1-43.9); Red Blood Count 3.85 M/mm3 (4.2-5.4)
[2020-03-11] MEDS: miSOPROStol 25 MCG TABLET PO (22:35)
[2020-03-11 22:37] VITALS: BP 119/80; PULSE 85; TEMP 37.1; O2SAT 98
[2020-03-11 22:38] VITALS: BP 119/80; PULSE 85
[2020-03-12] VITALS (35 sets, daily range): BP systolic 113–137; BP diastolic 63–90; PULSE 66–106; TEMP 36.8–37.7; O2SAT 89–100
[2020-03-12] MEDS: miSOPROStol 25 MCG TABLET PO ×2 (02:35→06:40)
--- NOTE | 2020-03-12 07:15 | PCM.PN.BLA ---
Progress Note Patient is a at 41.1 weeks gestation here for induction of labor for postdates GBS negative Cytotec 25 mcg PO every 4 hours- has receive 3 doses CE- Closed/Thick/ High Category 1 tracing/ NST reactive Continue plan of care Anticipate STROKE Vital Signs/Narrative: Vital Signs Pulse BP 03/12/20 06:34 69 130/85 H
[2020-03-12] MEDS: 0.9% Normal Saline Single 100 ML IV.SOLN. IY (08:25)
--- NOTE | 2020-03-12 08:34 | PCM.PN.BLA ---
Progress Note pt seen at bedside, resting comfortably. transcervical wilkins placed- pt tolerated well. Will start Pitocin at 10:30 am. STROKE Vital Signs/Narrative: Vital Signs Temp Pulse BP 03/12/20 07:16 78 126/71 H 03/12/20 07:15 99.0 F 03/12/20 06:34 98.8 F 69 130/85 H
[2020-03-12] MEDS: 0.9% Saline Lock 10 ML Syringe IV (10:31)
[2020-03-12] MEDS: Lactated Ringers 1,000 ML 50 ML IV (10:32)
[2020-03-12] MEDS: Oxytocin 30 units/NS 500 ml 30 UNITS/500 ML IV.SOLN IV (10:47)
[2020-03-12] MEDS: Ondansetron 4 MG/2 ML Vial IV (20:30)
[2020-03-12] MEDS: proCHLORPERazine 10 MG/2 ML Vial IV (22:01)
[2020-03-12] MEDS: fentaNYL 100 MCG/2 ML Ampul IV (22:24)
[2020-03-12] MEDS: Lactated Ringers 1,000 ML 200 ML IV (22:49)
[2020-03-13] VITALS (81 sets, daily range): BP systolic 79–161; BP diastolic 39–93; PULSE 95–164; RESP 14–24; TEMP 36.2–37.7; O2SAT 84–100
[2020-03-13] MEDS: Ondansetron 4 MG/2 ML Vial IV ×2 (01:01→06:12)
[2020-03-13] MEDS: 0.9% Saline Lock 10 ML Syringe IV (01:01)
[2020-03-13] MEDS: Lactated Ringers 1,000 ML 200 ML IV ×2 (03:34→10:15)
[2020-03-13] MEDS: Lactated Ringers 500 ML 999 ML IV ×3 (05:48→07:33)
[2020-03-13] MEDS: fentaNYL-bupivacaine (epidural) 100 ML BAG EPIDURAL ×2 (06:22→10:31)
--- NOTE | 2020-03-13 11:33 | PN_ITS ---
Progress Note Patient was seen at bedside, doing well. Patient resting comfortably with epidural in place. Patient with ruptured membranes since approximately 5 PM on 03/12/2020. Patient with minimal cervical change. She is still approximately 4 cm / 70%/-2. Patient was on Pitocin had a Pitocin break over night for two hours and restarted Pitocin again. Patient at this time was given the option to proceed with induction of labor or perform a primary section for failed induction. Patient would like to proceed with a primary secti on. Patient was counseled on the risks benefits including but not limited to infection, bleeding, injury to pelvic structures. STROKE Vital Signs/Narrative: Vital Signs Temp Pulse BP Pulse Ox 03/13/20 11:10 144 H 137/77 H 99 03/13/20 10:59 99.1 F 03/13/20 10:14 131 H 129/70 H 03/13/20 09:57 131 H 117/56 L 03/13/20 09:32 98.3 F 03/13/20 09:10 125 H 110/62 98 03/13/20 08:56 98.0 F 03/13/20 08:39 84 03/13/20 08:38 123 H 115/67 03/13/20 08:06 130 H 99 03/13/20 08:02 139 H 107/63 03/13/20 08:01 98 03/13/20 07:56 141 H 97/50 L 98 03/13/20 07:53 142 H 104/55 L 03/13/20 07:51 118 H 98 03/13/20 07:46 146 H 104/53 L 03/13/20 07:45 145 H 97 03/13/20 07:41 148 H 102/52 L 03/13/20 07:40 147 H 98 03/13/20 07:36 139 H 110/57 L 03/13/20 07:35 135 H 97
--- NOTE | 2020-03-13 11:37 | OP.PCM_ITS ---
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 end time 1252 Pre-Operative Diagnosis: post term , Failed IOL Post-Operative Diagnosis: same, Indications: failed IOL. Description of Procedure: Pt taken to OR- She was then placed in the supine position. She was prepped and draped in the normal sterile fashion. Epidural Anesthesia was found to be adequate. At this time a elliptical skin incision was made around previous incision with a scalpel and old scar was removed - the incision was then carried down to the underlying layer of the fascia. The fascial incision was then extended laterally using curved Davis scissor. Attention was then turned to the superior aspect of the fascial edge was grasped with 2 straight Charleston clamps tented up and the rectus muscle dissected off sharply using curved Davis scissor. Attention was then turned to the inferior aspect where again Charleston clamps were placed in the rectus muscles were tented up and the fascia was dissected off sharply using the curved Davis scissor. Rectus muscles were then in the midline bluntly and peritoneum was entered bluntly. Gentle opposing traction was placed. At this time the vesicouterine peritoneum was identified. bladder flap created. No obvious defect in bladder from previous surgery- had uretroplasty as child. Scalpel was used to make a uterine incision in a low transverse fashion. The uterus was then entered bluntly gentle opposing traction was placed to extend this incision. Meconinum noted. Infant's head was brought to the uterine incision was delivered atraumatically. Cord was clamped and cut was handed to the waiting nursery team. The Placenta was removed from the uterus. The uterus was then removed from the abdominal cavity. The uterus was cleared of all clots and debris using a lap. At this time the uterine incision was reapproximated using #1 Vicryl in a running locked fashion followed by multiple figure of eight sutures with #1 vicryl for hemostasis. Uterine atony noted- methergine given IM. small defect on anterior asepct of lower uterine segment- figure of eight placed- urine remained cleared during procedure. Hemostasis was appreciated. Posterior cul-de-sac was then cleared of all clots and debris. Uterus was placed back in the abdominal cavity. Right tube and ovary appear normal. Left adnexa was surgically absent. Gutters were cleared of all clots and debris. Uterine incision was reevaluated and noted to be of excellent hemostasis. Kristian placed. At this time the peritoneum and muscle were grasped with Kellys reapproximated using #2 Vicryl suture in a running fashion. Fascia was then reapproximated using #1 Vicryl in a running fashion. Subcu layer was reapproximated with #2 0 plain gut suture in an interrupted fashion. Subcu layer was closed using 4-0 Monocryl in a Derick needle in a subcu fashion. Dry sterile dressing was applied. Instrument lap needle count correct ?2. Anticipated normal postoperative course. Amniotic Membrane Rupture Type: Artificial Amniotic Fluid Description: Clear Placenta Disposition: [facility] Specimen(s) sent to pathology: none Drain: Desir to straight drain Cord Entanglement: None Cord Vessel Description: 3 Vessels Esitmated Blood Loss (ml): 700 Gender: Male (1 minute): 8 (5 minute): 9 Delayed cord clamping: No Antibiotic Given: Ancef 2 grams IV x1, Zithromax 500 mg/5 mL X1 Pt instructed on risks of surgery: Bleeding, Anesthesia Risks, Infection, Injury to surrounding structure(s) including bowel and bladder - Admit VTE Documentation VTE Present on Admission: Yes VTE Mechan Device Prophylaxis: SCD's VTE Pharm Prophylaxis ordered?: No
[2020-03-13] MEDS: Acetaminophen 325 MG Tablet PO (11:45)
[2020-03-13] MEDS: Sodium Citrate/Citric Acid 30 ML UDC PO (11:56)
[2020-03-13] MEDS: Cefazolin 2 GM in 0.9% Normal Saline 100 ML IV (12:01)
[2020-03-13] MEDS: Oxytocin 30 units/NS 500 ml 30 UNITS/500 ML IV.SOLN 167 UNITS IV (13:15)
[2020-03-13] MEDS: Lactated Ringers 1,000 ML 100 ML IV (16:50)
[2020-03-13 17:25] LABS: Hematocrit 30.6 % (37-47); Hemoglobin 10.7 g/dL (12.0-15.0); Mean Corpuscular Hgb 33.1 pg (27.0-32.0); Mean Corpuscular Volume 94.7 fL (81-99); Mean Platelet Vol. 9.8 fl (6.2-12.0); Platelet Count 133 K/mm3 (150-450); RBC Distribution Width CV 12.5 % (11.6-14.6); RBC Distribution Width SD 43.1 fl (35.1-43.9); Red Blood Count 3.23 M/mm3 (4.2-5.4)
[2020-03-13 18:00] LABS: Anion Gap 8 (5-15); BUN 10 mg/dL (7-18); BUN/Creat Ratio 10.2 RATIO (10-20); Chloride 110 mmol/L (98-107); Creatinine, Serum 0.98 mg/dL (0.55-1.02); EST Glomerular Filtration Rate 72 mL/min (>60); Est Glom Filt Rate - Afr Amer 87 mL/min (>60); Estimated Creatinine Clearance 77.59 ml/min; Glucose 104 mg/dL (74-106); Potassium 3.7 mmol/L (3.5-5.1); Sodium Level 140 mmol/L (136-145)
[2020-03-13] MEDS: Acetaminophen 500 MG Tablet 1000 MG PO (18:22)
[2020-03-13] MEDS: Ketorolac 30 MG/ML Syringe IV (18:22)
--- NOTE | 2020-03-13 18:54 | NURSING ---
epidural catheter removed. blue tip intact. pt tolerated well
[2020-03-14] VITALS (11 sets, daily range): BP systolic 98–128; BP diastolic 56–79; PULSE 91–125; RESP 16–18; TEMP 36.1–37.2; O2SAT 97–100
[2020-03-14] MEDS: Acetaminophen 500 MG Tablet 1000 MG PO ×4 (00:40→18:39)
[2020-03-14] MEDS: Lactated Ringers 1,000 ML 100 ML IV (00:48)
[2020-03-14] MEDS: Ketorolac 30 MG/ML Syringe IV ×3 (00:48→11:43)
[2020-03-14] MEDS: 0.9% Saline Lock 10 ML Syringe IV ×2 (05:27→11:49)
[2020-03-14 05:50] LABS: Hematocrit 26.5 % (37-47); Hemoglobin 9.2 g/dL (12.0-15.0); Mean Corp Hgb Conc 34.7 g/dL (32-36); Mean Corpuscular Hgb 33.2 pg (27.0-32.0); Mean Corpuscular Volume 95.7 fL (81-99); Mean Platelet Vol. 9.6 fl (6.2-12.0); Platelet Count 124 K/mm3 (150-450); RBC Distribution Width CV 12.8 % (11.6-14.6); RBC Distribution Width SD 44.5 fl (35.1-43.9); Red Blood Count 2.77 M/mm3 (4.2-5.4); White Blood Count 14.8 K/mm3 (4.4-11.0)
--- NOTE | 2020-03-14 05:54 | NURSING ---
Desir catheter removed at 0540.
[2020-03-14 06:03] LABS: Anion Gap 4 (5-15); BUN 12 mg/dL (7-18); BUN/Creat Ratio 14.7 RATIO (10-20); Calcium,Total 8.2 mg/dL (8.5-10.1); Chloride 108 mmol/L (98-107); Creatinine, Serum 0.82 mg/dL (0.55-1.02); EST Glomerular Filtration Rate 89 mL/min (>60); Est Glom Filt Rate - Afr Amer 108 mL/min (>60); Estimated Creatinine Clearance 92.73 ml/min; Glucose 90 mg/dL (74-106); Sodium Level 137 mmol/L (136-145)
--- NOTE | 2020-03-14 09:14 | PCM.PN.OB ---
Patient Problems: Active and Suspected Problems (Last Reviewed 04/16/18 @ 15:15 by María Elena Orourke) 41 weeks gestation of (Acute) resulting from assisted reproductive technology (Acute) Subjective: Patient seen at bedside, doing well. Patient reports good pain control. Mild lochia. Breast-feeding well. She denies any headaches or visual changes. Desir recently removed has not voided at this time. - Physical Exam Vitals/I&O's: Vital Signs Temp Pulse Resp BP Pulse Ox 97 F L 100 18 103/57 L 97 03/14/20 08:15 03/14/20 08:15 03/14/20 08:15 03/14/20 08:15 03/14/20 08:15 Oxygen Delivery Method Room Air Weight: 94.3 kg Body Mass Index (BMI) 34.6 Intake and Output for Last 24 Hours 03/12/20 03/13/20 03/14/20 23:59 23:59 23:59 Intake Total 1706.04 / 1706.04 5329.46 / 5329.46 1700 / 1700 Output Total 2250 / 2250 2240 / 2240 950 / 950 Balance -543.96 / -543.96 3089.46 / 3089.46 750 / 750 General: Alert, Oriented x3 Abdomen: Soft, - - Patient up to chair breast-feeding. unable to perform assessment at this time. Neurological: Cranial nerves II-XII grossly intact Laboratory Results 03/13/20 17:10: WBC 11.0, RBC 3.23 L, Hgb 10.7 L, Hct 30.6 L, MCV 94.7, MCH 33.1 H, MCHC 35.0, RDW Std Deviation 43.1, RDW Coeff of Nicol 12.5, Plt Count 133 L, MPV 9.8 03/13/20 17:10: Sodium 140, Potassium 3.7, Chloride 110 H, Carbon Dioxide 22.0, Anion Gap 8, BUN 10, Creatinine 0.98, Estim Creat Clear Calc 77.59, Est GFR (MDRD) Af Amer 87, Est GFR (MDRD) Non-Af 72, BUN/Creatinine Ratio 10.2, Glucose 104, Calcium 8.0 L 03/14/20 05:42: WBC 14.8 H, RBC 2.77 L, Hgb 9.2 L, Hct 26.5 L, MCV 95.7, MCH 33.2 H, MCHC 34.7, RDW Std Deviation 44.5 H, RDW Coeff of Nicol 12.8, Plt Count 124 L, MPV 9.6 03/14/20 05:42: Sodium 137, Potassium 4.0, Chloride 108 H, Carbon Dioxide 25.0, Anion Gap 4 L, BUN 12, Creatinine 0.82, Estim Creat Clear Calc 92.73, Est GFR (MDRD) Af Amer 108, Est GFR (MDRD) Non-Af 89, BUN/Creatinine Ratio 14.7, Glucose 90, Calcium 8.2 L Current Medications Acetaminophen (Tylenol) 1,000 mg PO Q6 [facility] Last Admin: 03/14/20 05:26 Dose: 1,000 mg Documented by: Bisacodyl (Dulcolax) 10 mg RECTAL UD PRN PRN Reason: If no BM Diphenhydramine HCl (Benadryl) 25 mg PO Q6H PRN PRN PRN Reason: ITCHING Stop: 03/14/20 21:19 Hydrocortisone (Hytone) 1 applic TOPICAL TID PRN PRN; Protocol PRN Reason: Discomfort Lactated Ringer's () 1,000 mls @ 100 mls/hr IV .Q10H [facility] Last Infusion: 03/14/20 05:27 Dose: Infused Documented by: Naloxone HCl 4 mg/ Dextrose 504 mls @ 0 mls/hr IV .Q0M PRN; Protocol PRN Reason: Respiratory depression Naloxone HCl 4 mg/ Dextrose 504 mls @ 0 mls/hr IV .Q0M PRN; Protocol PRN Reason: To maintain Resp. rate >10 Ibuprofen (Motrin) 600 mg PO Q6 [facility] Ketorolac Tromethamine (Toradol (Bkc)) 30 mg IV Q6 [facility] Stop: 03/14/20 12:01 Last Admin: 03/14/20 05:27 Dose: 30 mg Documented by: Methylergonovine Maleate (Methergine) 0.2 mg IM X1 PRN PRN Reason: Uterine Atony Nalbuphine HCl (Nubain) 5 mg IV Q3H PRN PRN PRN Reason: ITCHING Stop: 03/14/20 21:19 Naloxone HCl (Narcan) 0.02 mg IV Q1M PRN PRN Reason: RR <10 and pt unresponsive Naloxone HCl (Narcan) 0.02 mg IV Q1M PRN PRN Reason: RR< 10 AND PT UNRESPONSIVE Ondansetron HCl (Zofran) 4 mg IV Q4H PRN PRN PRN Reason: Nausea Oxycodone HCl (Oxyir) 5 - 10 mg PO Q4H PRN PRN PRN Reason: Pain Score 4-10/10 Prochlorperazine Edisylate (Compazine Iv) 10 mg IV Q6H PRN PRN PRN Reason: NAUSEA Senna/Docusate Sodium (Senokot-S, Christelle-Colace) 0 tablet PO DAILY [facility] Simethicone (Mylicon) 80 mg PO [facility] PRN PRN Reason: Indigestion/stomach pain Sodium Chloride () 5 - 15 ml IV UD PRN PRN Reason: SALINE FLUSH Last Admin: 03/14/20 05:27 Dose: 10 ml Documented by: Medical Necessity - Tobacco Use Smoking Status: Never smoker Assessment/Plan All Active Problems (Last Reviewed 04/16/18 @ 15:15 by María Elena Orourke) Left ovarian cyst (Acute) 41 weeks gestation of (Acute) resulting from assisted reproductive technology (Acute) POD#1, doing well routine care pain mgmt ambulatin anticipate dc home tomorrow
[2020-03-14] MEDS: Senna/Docusate Sodium 1 Tablet PO (10:32)
[2020-03-14] MEDS: Ibuprofen 600 MG Tablet PO ×2 (18:03→23:57)
[2020-03-15] MEDS: Acetaminophen 500 MG Tablet 1000 MG PO ×3 (00:44→12:05)
[2020-03-15 01:22] VITALS: BP 101/57; PULSE 97; RESP 14; TEMP 36.6
[2020-03-15] MEDS: Ibuprofen 600 MG Tablet PO ×2 (05:55→11:31)
[2020-03-15 08:00] VITALS: BP 106/59; PULSE 94; RESP 16; TEMP 36.1
--- NOTE | 2020-03-15 10:47 | PCM.PROGNOTE ---
Patient Problems: Active and Suspected Problems (Last Reviewed 04/16/18 @ 15:15 by María Elena Orourke) 41 weeks gestation of (Acute) resulting from assisted reproductive technology (Acute) Subjective: Doing well per nursing and patient. Denies chest pain, shortness of breath, leg pain, or headaches. Lochia normal. , support from . Planning D/C home today. - Physical Exam Vitals/I&O's: Vital Signs Temp Pulse Resp BP Pulse Ox 97 F L 94 16 106/59 L 100 03/15/20 08:00 03/15/20 08:00 03/15/20 08:00 03/15/20 08:00 03/14/20 11:30 Oxygen Delivery Method Room Air Weight: 207 lb 14.334 oz Body Mass Index (BMI) 34.6 Intake and Output for Last 24 Hours 03/13/20 03/14/20 03/15/20 23:59 23:59 23:59 Intake Total 5329.46 / 5329.46 1700 / 1700 Output Total 2240 / 2240 1350 / 1350 Balance 3089.46 / 3089.46 350 / 350 General: Alert, Oriented x3, Cooperative HEENT: Atraumatic, Normocephalic Neck: Trachea Midline Lungs: Clear to auscultation, Normal air movement, No rhonchi, No wheeze Cardiovascular: Regular rate, Regular Rhythm, No murmurs Abdomen: Bowel Sounds Present, Soft - Fundus firm 2 below U Extremities: No edema Psych/Mental Status: Normal Affect, Appropriate Current Medications Acetaminophen (Tylenol) 1,000 mg PO Q6 [facility] Last Admin: 03/15/20 05:55 Dose: 1,000 mg Documented by: Bisacodyl (Dulcolax) 10 mg RECTAL UD PRN PRN Reason: If no BM Hydrocortisone (Hytone) 1 applic TOPICAL TID PRN PRN; Protocol PRN Reason: Discomfort Naloxone HCl 4 mg/ Dextrose 504 mls @ 0 mls/hr IV .Q0M PRN; Protocol PRN Reason: Respiratory depression Naloxone HCl 4 mg/ Dextrose 504 mls @ 0 mls/hr IV .Q0M PRN; Protocol PRN Reason: To maintain Resp. rate >10 Ibuprofen (Motrin) 600 mg PO Q6 [facility] Last Admin: 03/15/20 05:55 Dose: 600 mg Documented by: Methylergonovine Maleate (Methergine) 0.2 mg IM X1 PRN PRN Reason: Uterine Atony Naloxone HCl (Narcan) 0.02 mg IV Q1M PRN PRN Reason: RR <10 and pt unresponsive Naloxone HCl (Narcan) 0.02 mg IV Q1M PRN PRN Reason: RR< 10 AND PT UNRESPONSIVE Ondansetron HCl (Zofran) 4 mg IV Q4H PRN PRN PRN Reason: Nausea Oxycodone HCl (Oxyir) 5 - 10 mg PO Q4H PRN PRN PRN Reason: Pain Score 4-10/10 Prochlorperazine Edisylate (Compazine Iv) 10 mg IV Q6H PRN PRN PRN Reason: NAUSEA Senna/Docusate Sodium (Senokot-S, Christelle-Colace) 0 tablet PO DAILY [facility] Last Admin: 03/14/20 10:32 Dose: 1 tablet Documented by: Simethicone (Mylicon) 80 mg PO [facility] PRN PRN Reason: Indigestion/stomach pain Last Admin: 03/14/20 11:43 Dose: 80 mg Documented by: Sodium Chloride () 5 - 15 ml IV UD PRN PRN Reason: SALINE FLUSH Last Admin: 03/14/20 11:49 Dose: 10 ml Documented by: Medical Necessity - Tobacco Use Smoking Status: Never smoker Assessment/Plan All Active Problems (Last Reviewed 04/16/18 @ 15:15 by María Elena Orourke) Left ovarian cyst (Acute) 41 weeks gestation of (Acute) resulting from assisted reproductive technology (Acute) A:PPD #1 P: 1) Routine and support 2) Planning D/C home today 3) Motrin Rx for pain 4) Follow up in 2 weeks and 6 weeks.
--- NOTE | 2020-03-15 11:08 | DCINST_ITS ---
Discharge Diet: No Restrictions Discharge Activity: May Not Drive - for 2 weeks or while taking narcotic pain meds., May Shower, May Take a Tub Bath - in 7 days. May resume sexual activity in: 4-6 weeks Weight Bearing Status: Full weight bearing Lifting Restrictions: 20 pounds Additional Activity Instructions:: Nothing in the vagina for 4-6 weeks. You may return to work/school in 6 weeks. Call your doctor if your incision/area has: Continuous Slow Oozing, Sudden Increased Bleeding, Increased Pain/ Swelling, Increased Redness, Foul Smelling Discharge Call your doctor if you observe: Fever of 101 or Higher Suture Line Care: Avoid Pulling/Pushing, Avoid Pinching/Bending Additional Instructions: If you experience any of the following, contact your healthcare provider. * Bleeding that soaks a pad every hour for 2 hours * Fever 100.4 or higher * Unrelieved incision or abdominal pain * Swelling, redness, discharge or bleeding from your incision or episiotomy site * Your incision begins to separate * Problems urinating (including inability to urinate or burning while urinating). * Visual changes * Severe headache * Flu-like symptoms * Pain or redness in one of both of your breasts * Pain, warmth, tenderness or swelling in your legs, especially the calf area * Frequent nausea and vomiting * Symptoms of depression or anxiety If you experience any of the following, call 911 or go to the nearest Emergency Room. * Chest pain * Problems breathing * Seizure activity * Partial or complete paralysis of a body part, slurred speech, weakness or drooping of the face, or a sudden inability to walk or hold your balance Allergies/Adverse Reactions: Allergies No Known Allergies Allergy (Verified 03/11/20 21:15) Medications to take at Discharge Vit No.130/Iron/Folic [ Tablet] 1 ea PO DAILY 03/11/20 Ferrous Sulfate 325 mg PO BID 30 Days #60 tab 03/15/20 Ibuprofen [Motrin] 600 mg PO Q6 #30 tab 03/15/20 The following prescriptions were given: Ferrous Sulfate 325 mg PO BID 30 Days #60 tab Transmission Status: Received by [facility] Ibuprofen [Motrin] 600 mg PO Q6 #30 tab Transmission Status: Pending to [facility] Follow-Up: Call to make an appointment with your doctor for an incision check in 1-2 weeks. You will also need a 6 week post- follow up appointment. Test results from this visit will be discussed in further detail at your follow- up appointment, if applicable. Please Follow Up With: Mari Fontenot MD Primary Care Physician: Nicci Costello MD [Primary Care Provider] -
[2020-03-15] MEDS: Senna/Docusate Sodium 1 Tablet PO (11:31)
--- NOTE | 2020-03-15 12:40 | DS.PCM_ITS ---
Discharge Date and Diagnosis - Problem List Patient Problems: Active and Suspected Problems (Last Reviewed 04/16/18 @ 15:15 by María Elena Orourke) 41 weeks gestation of (Acute) resulting from assisted reproductive technology (Acute) Date of Admission: 01/14/19 Date of Discharge: 03/15/20 - Primary Discharge Diagnosis Acute Problems: Active Problems (Last Reviewed 04/16/18 @ 15:15 by María Elena Orourke) 41 weeks gestation of (Acute) resulting from assisted reproductive technology (Acute) Hospital Course and Treatment Consultations 03/11/20 21:21 Consult: Anesthesia Routine Comment: Reason For Exam: Labor Summary of Care Provided: The patient is a 29 year old F [ ]presented at 41 weeks for induction of labor for postdates. Primary section for failure to progress on 03/13/20. Uncomplicated postoperative and course. Acute blood loss anemia, asymptomatic. Discharge home on day #2. Patient Problems: Active and Suspected Problems (Last Reviewed 04/16/18 @ 15:15 by María Elena Orourke) 41 weeks gestation of (Acute) resulting from assisted reproductive technology (Acute) - Physical Exam Vitals/I&O's: Vital Signs Temp Pulse Resp BP Pulse Ox 97 F L 94 16 106/59 L 100 03/15/20 08:00 03/15/20 08:00 03/15/20 08:00 03/15/20 08:00 03/14/20 11:30 Oxygen Delivery Method Room Air Weight: 207 lb 14.334 oz Body Mass Index (BMI) 34.6 Intake and Output for Last 24 Hours 03/13/20 03/14/20 03/15/20 23:59 23:59 23:59 Intake Total 5329.46 / 5329.46 1700 / 1700 Output Total 2240 / 2240 1350 / 1350 Balance 3089.46 / 3089.46 350 / 350 Current Medications Acetaminophen (Tylenol) 1,000 mg PO Q6 [facility] Last Admin: 03/15/20 12:05 Dose: 1,000 mg Documented by: Bisacodyl (Dulcolax) 10 mg RECTAL UD PRN PRN Reason: If no BM Hydrocortisone (Hytone) 1 applic TOPICAL TID PRN PRN; Protocol PRN Reason: Discomfort Naloxone HCl 4 mg/ Dextrose 504 mls @ 0 mls/hr IV .Q0M PRN; Protocol PRN Reason: Respiratory depression Naloxone HCl 4 mg/ Dextrose 504 mls @ 0 mls/hr IV .Q0M PRN; Protocol PRN Reason: To maintain Resp. rate >10 Ibuprofen (Motrin) 600 mg PO Q6 [facility] Last Admin: 03/15/20 11:31 Dose: 600 mg Documented by: Methylergonovine Maleate (Methergine) 0.2 mg IM X1 PRN PRN Reason: Uterine Atony Naloxone HCl (Narcan) 0.02 mg IV Q1M PRN PRN Reason: RR <10 and pt unresponsive Naloxone HCl (Narcan) 0.02 mg IV Q1M PRN PRN Reason: RR< 10 AND PT UNRESPONSIVE Ondansetron HCl (Zofran) 4 mg IV Q4H PRN PRN PRN Reason: Nausea Oxycodone HCl (Oxyir) 5 - 10 mg PO Q4H PRN PRN PRN Reason: Pain Score 4-10/10 Prochlorperazine Edisylate (Compazine Iv) 10 mg IV Q6H PRN PRN PRN Reason: NAUSEA Senna/Docusate Sodium (Senokot-S, Christelle-Colace) 0 tablet PO DAILY [facility] Last Admin: 03/15/20 11:31 Dose: 1 tablet Documented by: Simethicone (Mylicon) 80 mg PO [facility] PRN PRN Reason: Indigestion/stomach pain Last Admin: 03/14/20 11:43 Dose: 80 mg Documented by: Sodium Chloride () 5 - 15 ml IV UD PRN PRN Reason: SALINE FLUSH Last Admin: 03/14/20 11:49 Dose: 10 ml Documented by: Discharge Diet: No Restrictions Discharge Activity: May Not Drive - for 2 weeks or while taking narcotic pain meds., May Shower, May Take a Tub Bath - in 7 days. May resume sexual activity in: 4-6 weeks Weight Bearing Status: Full weight bearing Additional Activity Instructions:: Nothing in the vagina for 4-6 weeks. You may return to work/school in 6 weeks. Call your doctor if your incision/area has: Continuous Slow Oozing, Sudden Increased Bleeding, Increased Pain/ Swelling, Increased Redness, Foul Smelling Discharge Call your doctor if you observe: Fever of 101 or Higher Suture Line Care: Avoid Pulling/Pushing, Avoid Pinching/Bending Home Medications: Medications to take at Discharge Vit No.130/Iron/Folic [ Tablet] 1 ea PO DAILY 03/11/20 Ferrous Sulfate 325 mg PO BID 30 Days #60 tab 03/15/20 Ibuprofen [Motrin] 600 mg PO Q6 #30 tab 03/15/20 Following Prescriptions Were Given to Patient: Ferrous Sulfate 325 mg PO BID 30 Days #60 tab Transmission Status: Received by [facility] Ibuprofen [Motrin] 600 mg PO Q6 #30 tab Transmission Status: Received by [facility] Primary Care Physician: Nicci Costello MD [Primary Care Provider] - Please Follow Up With: Mari Fontenot MD Medical Necessity - Tobacco Use Smoking Status: Never smoker Meaningful Use Info Meaningful Use Diagnoses (Choose all that apply): None applicable
== END 2020-03-15 12:05 | disposition home or self-care (01) | DRG 788 ==
PROVIDERS: Admitting Provider Advanced Practice Midwife; PCP Family Medicine; Visit Provider Obstetrics & Gynecology
DX: O61.9 Failed induction of labor, unspecified (principal); Z37.0 Single live birth; O48.0 Post-term pregnancy; Z3A.41 41 weeks gestation of pregnancy; O62.2 Other uterine inertia; O77.0 Labor and delivery complicated by meconium in amniotic fluid; N83.202 Unspecified ovarian cyst, left side; O34.83 Maternal care for other abnormalities of pelvic organs, third trimester
CPT/HCPCS: 59025; 59050; 80048; 85025; 85027; 86850; 86900; 86901; 99218; 99251; J7120; A4216; G0378; G0463; J2405

== ENCOUNTER → 2021-03-11 10:21 | Outpatient (CLI) | payer OTHER, SELFPAY ==
[2021-03-11 11:42] LABS: hCG Titer Quant., Serum 735 mIU/mL (1-3)
== END ==
PROVIDERS: PCP Family Medicine; Referring Provider Obstetrics & Gynecology; Visit Provider Obstetrics & Gynecology
DX: Z32.01 Encounter for pregnancy test, result positive (principal)
CPT/HCPCS: 36415; 84702

== ENCOUNTER → 2021-03-14 06:32 | Outpatient (CLI) | payer OTHER, SELFPAY ==
[2021-03-14 08:18] LABS: hCG Titer Quant., Serum 2035 mIU/mL (1-3)
== END ==
PROVIDERS: PCP Family Medicine; Referring Provider Obstetrics & Gynecology; Visit Provider Obstetrics & Gynecology
DX: Z32.01 Encounter for pregnancy test, result positive (principal)
CPT/HCPCS: 36415; 84702

== ENCOUNTER 2021-03-23 13:31 | Emergency (ER) | payer OTHER, SELFPAY ==
[2021-03-23 13:32] VITALS: BP 125/73; PULSE 90; RESP 16; TEMP 36.3; O2SAT 100; BMI 29.9
--- NOTE | 2021-03-23 14:16 | US_ITS ---
STUDY: FIRST TRIMESTER OBSTETRICAL ULTRASOUND REASON FOR EXAM: Female, 30 years old. Abdominal pain. Beta hCG of 23,524. 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 Scar tissue in right fallopian tube from surgery at age 7. LMP: 02/14/2021 TECHNIQUE: Transabdominal TECHNICAL QUALITY: Adequate. PRIOR ULTRASOUND: None. FINDINGS: There is visualization of a single gestational sac in a normal intrauterine position. The mean sac diameter (MSD) measures 1.75 cm, indicating an estimated gestational age (EGA) of 6 weeks, 4 days. The gestational sac shape is within normal limits. There is a visualized yolk sac. The yolk sac measures 0.1 cm. The placenta is non-visualized. There is visualization of a live embryo. The crown-rump length (CRL) measures 0.58 cm, indicating an estimated gestational age (EGA) of 6 weeks, 3 days. There is demonstrated cardiac activity with a heart rate of 1:30 bpm. The estimated gestation age (EGA) by LMP is 7 weeks, 2 days. The estimated date of delivery (YARA) by LMP is 11/07/2021. The estimated gestation age (EGA) by US is 6 weeks, 3 days. The estimated date of delivery (YARA) by US is 11/13/2021. The uterus measures 10.8 x 6.6 x 5.6 cm. There is a thin crescent shaped fluid collection adjacent to the gestational sac measuring 4.2 x 3.5 x 0.4 cm talked to represent a subchorionic hemorrhage. There is no demonstrated uterine fibroid. The cervix is closed. The right ovary measures 2.5 x 3.3 x 2.3 cm. There are multiple follicles of the right ovary without a dominant cyst. There is a masslike area of hypoechoic tissue in the right adnexa adjacent to the right ovary measuring 2.5 x 1.8 x 2.1 cm the etiology is uncertain. Question scarred fallopian tube. The left ovary not visualized . There is no visualized left adnexal mass or complex lesion. There is minimal fluid in the cul de sac. US/Transvaginal w/Preg US IMPRESSION: 1. Live single intrauterine at 6 weeks, 3 days. YARA is 11/13/2021. 2. heart rate of 130 bpm. 3. Small subchorionic hemorrhage. 4. Normal right ovary. There is a soft tissue mass adjacent to the right ovary of uncertain etiology. This was not present on the pelvic CT of 11/21/2018. 5. Status post left nephrectomy. 6. Minimal free fluid in the pelvis. Electronically Signed: Richard Zhou DO at 17:17 EDT Tel [phone], Service support ,
--- NOTE | 2021-03-23 14:18 | US_ITS ---
STUDY: ABDOMINAL ULTRASOUND - RIGHT UPPER QUADRANT REASON FOR VISIT: Female, 30 years old . Abdominal pain. TECHNIQUE: Ultrasound evaluation of the right upper quadrant was performed with real-time and static massey-scale imaging. TECHNICAL QUALITY: Examination limited by bowel gas. COMPARISON: None. FINDINGS: Liver: The liver measures 14.1 cm. There is normal echogenicity of the liver. The bile ducts are within normal limits. There is hepatic color flow. The direction of portal flow is hepatopetal. There is no demonstrated mass lesion. Gallbladder: Normal distended gallbladder. The gallbladder wall measures 2.2 mm. There is a negative sonographic Geller''s sign. There is no pericholecystic fluid. There are no gallstones. Common Bile Duct (C.B.D.): The common bile duct measures mm. Pancreas: Normal size of the head, body and proximal tail of the pancreas. The distal tail is obscured by bowel gas. There is normal echogenicity of the pancreas. There is no demonstrated pancreatic mass or cyst. Right Kidney: Normal size of the right kidney. The right kidney measures 12.7 cm. Normal renal cortex. Prominent column of SYLWIA The right cortex measures 1.1 cm. There is no demonstrated renal mass or cyst. There is no right hydronephrosis. US/Gallbladder IMPRESSION: Normal right upper quadrant ultrasound examination. Electronically Signed: Richard Zhou DO at 17:05 EDT Tel [phone], Service support ,
--- NOTE | 2021-03-23 14:30 | EDS_ITS ---
HPI HPI - GI History of Present Illness Chief Complaint: Abd Pain Informant: patient Abdominal Pain/Flank Pain Onset: Hours (2) Context: Gradual Onset Timing: Intermittent and Lasts (15 to 20 minutes) Quality: Stabbing Location: RUQ Worsened by: Nothing Relieved by: - (Vomiting) Nausea/Vomiting/Emesis GI Symptom: Positive for Nausea and Vomiting Quality: Negative for Blood streaks, Coffee ground and Hematemesis Diarrhea/Melena/Hematochezia GI Symptom: Negative for Diarrhea and Melena Associated Symptoms Associated Symptoms: Negative for Dysuria, Frequency and Hematuria Narrative Narrative: Patient presents with abdominal pain that began approximately 2 hours prior to arrival. Patient states it has been intermittent. Patient states that last approximately 15 to 20 minutes. Patient states the pain is over the right upper quadrant. Patient states the pain radiates to her right shoulder. Patient states the pain got better after vomiting. Patient states it is not r elated to food. Patient admits to nausea and vomiting that began yesterday. Patient denies any hematemesis or coffee-ground emesis. Patient denies any diarrhea, melena, or hematochezia. Patient denies any dysuria, hematuria, or frequency. Patient states she is approximately 7 weeks . [facility] Medical History Acute pharyngitis, unspecified Shingles Home Medications [id number] [] 1 tab PO DAILY 03/23/21 [History Last Taken Unknown] Allergy/AdvReac Type Severity Reaction Status Date / Time No Known Allergies Allergy Verified 03/23/21 13:34 Surgical History History of urinary tract surgery Social History Smoking Status: Never smoker alcohol intake: never substance use type: does not use caffeine: Yes what type of physical activity do you participate in: running frequency: 3-4 times per week seatbelt use: always do you feel safe at home: Yes 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) ROS ROS ED Constitutional Constitutional ED: Denies chills or fever(s) Eyes Eyes: Denies blurry vision or change in vision ENT ENT ED: Denies rhinorrhea or sore throat Cardiovascular Cardiovascular: Denies chest pain or palpitations Respiratory/Chest Respiratory/Chest: Denies cough or dyspnea Gastrointestinal Gastrointestinal: Reports abdominal pain, nausea and vomiting Genitourinary Genitourinary ED: Denies dysuria or hematuria Musculoskeletal Musculoskeletal: Reports back pain; Denies neck pain Integumentary Denies abscess or rash Neurologic Neurologic: Denies headache(s) or weakness Allergic/Immunologic Allergic/Immunologic ED: Denies mouth swelling or urticaria EXAM Physical Exam Const Vital Signs: 03/23/21 13:32 Temperature 97.4 F L Temperature Source Temporal Pulse Rate 90 Respiratory Rate 16 Blood Pressure 125/73 H Blood Pressure Mean 90 Pulse Ox 100 Oxygen Delivery Method Room Air Positive well nourished and well developed General Appearance ED: well developed HEENT Reports moist mucous membranes Neck supple and no JVD Resp normal respiratory effort and clear to auscultation bilaterally Cardio regular rate, regular rhythm and no murmurs GI normal to inspection, nondistended, normoactive bowel sounds and non-tender Palpation: soft Extremity normal to inspection General Extremety ED: Negative for edema or tenderness General Extremity: Negative for edema Neuro oriented x3, CN's II-XII intact bilaterally and no sensory deficits noted Sensorium / Orientation: alert Motor Exam: strength 5/5 throughout Psych mental status grossly normal Skin no rashes or lesions noted MDM MDM MDM Narrative Medical decision making narrative: Patient was given IV fluids. CBC was within normal limits. Comprehensive metabolic profile was within normal limits. Lipase was normal. Quantitative hCG was 23,524. Urinalysis does not show any evidence of urinary tract infection. Gallbladder ultrasound was obtained. This was normal. There is no evidence of cholecystitis. This was interpreted by the radiologist and reviewed by myself. Transvaginal ultrasound was obtained. There is a single live intrauterine at 6 weeks 3 days. There is normal right ovary. There is a small subchorionic hemorrhage. heart rate was 130. This was interpreted by the radiologist and reviewed by myself. Patient is feeling better on reevaluation. Patient was advised of her findings. Patient was instructed to follow-up with her primary care physician and [employer]AC[employer] MEMBER in 5 to 7 days. Patient understood and was agreeable with the plan. All questions were answered. Lab Data Labs: Laboratory Results - last 24 hr 03/23/21 03/23/21 03/23/21 14:30 14:30 14:30 WBC 5.3 RBC 4.39 Hgb 13.5 Hct 39.4 MCV 89.7 MCH 30.8 MCHC 34.3 RDW Std Deviation 38.4 RDW Coeff of Nicol 11.7 Plt Count 155 MPV 9.1 Immature Gran % (Auto) 0.400 Neut % (Auto) 86.0 H Lymph % (Auto) 4.6 L Jones % (Auto) 8.2 Eos % (Auto) 0.6 Baso % (Auto) 0.2 Absolute Neuts (auto) 4.5 Absolute Lymphs (auto) 0.24 L Nucleated RBC % 0 Differential Comment SCANNED Sodium 133 L Potassium 3.7 Chloride 102 Carbon Dioxide 25.0 Anion Gap 6 BUN 6 L Creatinine 0.62 Estim Creat Clear Calc 121.56 Est GFR (MDRD) Af Amer 146 Est GFR (MDRD) Non-Af 121 BUN/Creatinine Ratio 9.6 L Glucose 94 Calcium 8.8 Total Bilirubin 0.30 AST 12 L ALT 18 Alkaline Phosphatase 48 Total Protein 7.8 Albumin 3.8 Globulin 4.0 Albumin/Globulin Ratio 1.0 Lipase 52 L HCG, Quant 50625 H Urine Color Urine Clarity Urine pH Ur Specific [place] Urine Protein Urine Glucose (UA) Urine Ketones Urine Occult Blood Urine Nitrite Urine Bilirubin Urine Urobilinogen Ur Leukocyte Esterase Urine RBC Urine WBC Ur Squamous Epith Cells Urine Bacteria Urine Mucus 03/23/21 14:55 WBC RBC Hgb Hct MCV MCH MCHC RDW Std Deviation RDW Coeff of Nicol Plt Count MPV Immature Gran % (Auto) Neut % (Auto) Lymph % (Auto) Jones % (Auto) Eos % (Auto) Baso % (Auto) Absolute Neuts (auto) Absolute Lymphs (auto) Nucleated RBC % Differential Comment Sodium Potassium Chloride Carbon Dioxide Anion Gap BUN Creatinine Estim Creat Clear Calc Est GFR (MDRD) Af Amer Est GFR (MDRD) Non-Af BUN/Creatinine Ratio Glucose Calcium Total Bilirubin AST ALT Alkaline Phosphatase Total Protein Albumin Globulin Albumin/Globulin Ratio Lipase HCG, Quant Urine Color Yellow Urine Clarity Sl. Cloudy Urine pH 7.0 Ur Specific [place] 1.010 Urine Protein Negative Urine Glucose (UA) Normal Urine Ketones 15 H Urine Occult Blood 10 H Urine Nitrite Positive H Urine Bilirubin Negative Urine Urobilinogen Normal Ur Leukocyte Esterase Negative Urine RBC 0 SEEN Urine WBC 0-5 SEEN Ur Squamous Epith Cells 0-5 SEEN Urine Bacteria 0 SEEN Urine Mucus 0 SEEN Radiography Diagnostic Testing: Radiology Impression Obstetrics Ultrasound 03/23/21 14:16 IMPRESSION: 1. Live single intrauterine at 6 weeks, 3 days. YARA is 11/13/2021. 2. heart rate of 130 bpm. 3. Small subchorionic hemorrhage. 4. Normal right ovary. There is a soft tissue mass adjacent to the right ovary of uncertain etiology. This was not present on the pelvic CT of 11/21/2018. 5. Status post left nephrectomy. 6. Minimal free fluid in the pelvis. Electronically Signed: Richard Zhou DO at 17:17 EDT Tel [phone], Service support , Gallbladder Ultrasound 03/23/21 14:18 IMPRESSION: Normal right upper quadrant ultrasound examination. Electronically Signed: Richard Zhou DO at 17:05 EDT Tel [phone], Service support , Discharge Plan Triage Chief Complaint: Abd Pain ED Provider: Simeon Lopes Dx/Rx/DC Orders Clinical Impression: Abdominal pain during , First trimester Instructions: ED Abdominal Pain Unkn Cause Fem, ED Abdominal Pain, Early Prescriptions: No Action 1 mg Tablet 1 tab PO DAILY RF: 0 Primary Care Provider: Nicci Costello Referrals: Nicci Costello MD [Primary Care Provider] - 3-5 Days Disposition Disposition: Home, Self Care
[2021-03-23 14:40] LABS: Absolute Lymphocyte Count 0.24 X10^3/uL (0.83-4.51); Absolute Neutrophil Count 4.5 X10^3/uL (2.0-7.7); Basophil# 0.01 X10^3/uL; Basophil% 0.2 % (0-1); Eosinophil# 0.03 X10^3/uL; Eosinophils% 0.6 % (0-5); Hematocrit 39.4 % (37-47); Hemoglobin 13.5 g/dL (12.0-15.0); Lymphocyte # 0.24 X10^3/ul (0.83-4.51); Lymphocyte % 4.6 % (19-41); Mean Corp Hgb Conc 34.3 g/dL (32-36); Mean Corpuscular Hgb 30.8 pg (27.0-32.0); Mean Corpuscular Volume 89.7 fL (81-99); Mean Platelet Vol. 9.1 fl (6.2-12.0); Monocyte# 0.43 X10^3/uL; Monocyte% 8.2 % (0-10); NRBC Flagged by Analyzer 0 % (0-5); Neutrophil # 4.53 X10^3/uL (2.7-7.7); POSITIVE DIFFERENTIAL YES; Platelet Count 155 K/mm3 (150-450); RBC Distribution Width CV 11.7 % (11.6-14.6); RBC Distribution Width SD 38.4 fl (35.1-43.9); Red Blood Count 4.39 M/mm3 (4.2-5.4); White Blood Count 5.3 K/mm3 (4.4-11.0)
[2021-03-23 14:46] LABS: Differential Indicated SCAN CRITERIA MET
[2021-03-23 14:50] LABS: AST(SGOT) 12 U/L (15-37); Alanine Aminotransfer ALT/SGPT 18 U/L (13-56); Albumin, Serum 3.8 g/dL (3.2-5.0); Alkaline Phosphatase 48 U/L (45-117); Anion Gap 6 (5-15); BUN 6 mg/dL (7-18); BUN/Creat Ratio 9.6 RATIO (10-20); Calcium,Total 8.8 mg/dL (8.5-10.1); Chloride 102 mmol/L (98-107); Creatinine, Serum 0.62 mg/dL (0.55-1.02); EST Glomerular Filtration Rate 121 mL/min (>60); Est Glom Filt Rate - Afr Amer 146 mL/min (>60); Estimated Creatinine Clearance 121.56 ml/min; Glucose 94 mg/dL (74-106); Lipase 52 U/L (73-393); Potassium 3.7 mmol/L (3.5-5.1); Protein, Total 7.8 g/dL (6.4-8.2); Sodium Level 133 mmol/L (136-145)
[2021-03-23] MEDS: 0.9% Normal Saline 1,000 ML 1000 ML IV (14:58)
[2021-03-23 15:01] LABS: Bacteria 0 SEEN /hpf (None Seen); Color, Urine Yellow (Yellow); Glucose, Dipstick Normal (Normal); Ketone-Dipstick 15 mg/dl (Negative); Leukocyte Esterase-Dipstick Negative /ul (Negative); Mucous, Urine 0 SEEN /hpf (<or=2+); Nitrite-Dipstick Positive (Negative); Occult Blood-Urine 10 /ul (Negative); Protein-Dipstick Negative (Negative); Red Blood Cells-Urine 0 SEEN /hpf (0-5); Urine Bilirubin Dipstick Negative (Negative); Urine Clarity Sl. Cloudy (Clear); Urine Urobilinogen Normal (Normal)
[2021-03-23 15:06] LABS: Squamous Epithelial Cells - UA 0-5 SEEN /hpf (5-10)
[2021-03-23 15:07] LABS: White Blood Cells 0-5 SEEN /hpf (0-5)
[2021-03-23 15:07] LABS: hCG Titer Quant., Serum 23524 mIU/mL (1-3)
[2021-03-23 15:14] LABS: Differential Comment SCANNED
[2021-03-23 18:12] VITALS: BP 105/82; PULSE 91; RESP 14
== END 2021-03-23 18:18 | disposition home or self-care (01) ==
PROVIDERS: Emergency Provider Emergency Medicine; PCP Family Medicine
DX: O26.891 Other specified pregnancy related conditions, first trimester (principal); R10.9 Unspecified abdominal pain; R11.2 Nausea with vomiting, unspecified; O20.8 Other hemorrhage in early pregnancy; Z3A.01 Less than 8 weeks gestation of pregnancy
CPT/HCPCS: 76705; 76817; 80053; 81001; 83690; 84702; 85025; 96360; 99283; J7030

== ENCOUNTER 2021-08-15 08:30 | Outpatient (CLI) | payer OTHER, SELFPAY ==
[2021-08-15 10:21] LABS: Absolute Lymphocyte Count 0.92 X10^3/uL (0.83-4.51); Absolute Neutrophil Count 10.2 X10^3/uL (2.0-7.7); Basophil# 0.02 X10^3/uL; Basophil% 0.2 % (0-1); Eosinophil# 0.14 X10^3/uL; Eosinophils% 1.2 % (0-5); Hematocrit 33.7 % (37-47); Hemoglobin 11.6 g/dL (12.0-15.0); Lymphocyte # 0.92 X10^3/ul (0.83-4.51); Lymphocyte % 7.8 % (19-41); Mean Corp Hgb Conc 34.4 g/dL (32-36); Mean Corpuscular Hgb 31.1 pg (27.0-32.0); Mean Corpuscular Volume 90.3 fL (81-99); Mean Platelet Vol. 9.2 fl (6.2-12.0); Monocyte# 0.58 X10^3/uL; Monocyte% 4.9 % (0-10); NRBC Flagged by Analyzer 0 % (0-5); Neutrophil # 10.16 X10^3/uL (2.7-7.7); Neutrophil % 85.6 % (47-70); Platelet Count 164 K/mm3 (150-450); RBC Distribution Width CV 12.7 % (11.6-14.6); RBC Distribution Width SD 41.7 fl (35.1-43.9); Red Blood Count 3.73 M/mm3 (4.2-5.4); White Blood Count 11.9 K/mm3 (4.4-11.0)
[2021-08-15 10:58] LABS: Glucose Challenge Gest 1H 50g 96 mg/dL (70-140)
[2021-08-15 11:09] LABS: Syphilis Antibodies Non-reactive
== END 2021-08-15 23:59 | disposition home or self-care (01) ==
PROVIDERS: PCP Family Medicine; Visit Provider Obstetrics & Gynecology
DX: Z34.82 Encounter for supervision of other normal pregnancy, second trimester (principal)
CPT/HCPCS: 36415; 82950; 85025; 86780

== ENCOUNTER 2021-08-22 16:28 | Emergency (ER) | payer OTHER, SELFPAY ==
[2021-08-22 16:29] VITALS: BP 120/63; PULSE 88; RESP 17; TEMP 36.1; O2SAT 98; BMI 32.5
[2021-08-22 17:05] LABS: Bacteria 0 SEEN /hpf (None Seen); Mucous, Urine 0 SEEN /hpf (<or=2+); Red Blood Cells-Urine 0 SEEN /hpf (0-5); White Blood Cells 0 SEEN /hpf (0-5)
[2021-08-22 17:16] LABS: Color, Urine Yellow (Yellow); Glucose, Dipstick Normal (Normal); Ketone-Dipstick Negative (Negative); Leukocyte Esterase-Dipstick Negative /ul (Negative); Nitrite-Dipstick Negative (Negative); Occult Blood-Urine Negative /ul (Negative); Protein-Dipstick Negative (Negative); Specific Gravity, Urine 1.005 (1.002-1.030); Urine Bilirubin Dipstick Negative (Negative); Urine Clarity Sl. Cloudy (Clear); Urine Urobilinogen Normal (Normal)
[2021-08-22 17:23] LABS: Squamous Epithelial Cells - UA 0-5 SEEN /hpf (5-10)
[2021-08-22 17:59] VITALS: BP 94/41
--- NOTE | 2021-08-22 18:11 | EX.ED.DYSGE1 ---
HPI <BLANCA Rios - Last Filed: 08/22/21 20:20> History of Present Illness Chief Complaint: Flank Pain Narrative Narrative: 30-year-old female who is approximately 28 weeks presents with right-sided flank pain that started 2 days ago. She states the pain comes in waves and radiates from her right flank to the right mid abdomen. She has nausea and vomiting. She has no dysuria or hematuria. She is mildly constipated which is chronic. No blood in her stool. She saw her ENVIRONMENTAL SERVICES COORDINATOR today who sent her to the ED. She denies history of kidney stones. 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 She states she has not had any issues since then. [facility] <BLANCA Rios - Last Filed: 08/22/21 20:20> [facility] Medical History Acute pharyngitis, unspecified Shingles Home Medications [id number] [] 1 tab PO DAILY 03/23/21 [History Last Taken Unknown] hydrocodone-acetaminophen 1 tab PO Q6H PRN PRN 3 Days #10 tablet 08/22/21 [Rx Last Taken Unknown] ondansetron 4 mg PO Q6H #12 tab 08/22/21 [Rx Last Taken Unknown] Allergy/AdvReac Type Severity Reaction Status Date / Time No Known Allergies Allergy Verified 08/22/21 16:28 Surgical History History of urinary tract surgery Social History Smoking Status: Never smoker alcohol intake: never substance use type: does not use caffeine: Yes what type of physical activity do you participate in: running frequency: 3-4 times per week seatbelt use: always do you feel safe at home: Yes 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 Eyes: Negative for visual change. ENT: Negative for sore throat, ear pain, rhinorrhea. CVS: Negative for palpitations, chest pain, syncope. Respiratory: Negative for shortness of breath, cough, orthopnea. GI: Positive for abdominal pain, nausea, vomiting. Negative for diarrhea, constipation, melena, hematochezia. : Negative for dysuria, hematuria or frequency. Neuro: Negative for headache, motor/sensory dysfunction. Skin: Negative for rash, abscess, or wound. Musc: Negative for joint pain, swelling, trauma. Heme: Negative for easy bruising, bleeding, lymphadenopathy. EXAM <BLANCA Rios - Last Filed: 08/22/21 20:20> Physical Exam Narrative Exam Narrative: CONST: Patient sitting in no acute distress. EYES: Normal inspection. ENT: Normal inspection, moist mucous membranes. NECK: Normal inspection. RESP: No respiratory distress, CTAB. CVS: Regular rate and rhythm, no murmur, no gallop. ABD: Gravid abdomen is soft with TTP in mid-right abdomen, no guarding or rebound, nondistended. Back: Normal inspection, right CVA tenderness. SKIN: Color normal, no rash, warm, dry, intact. EXTREMITIES: Normal appearance, no pedal edema. NEURO: Oriented x4. PSYCH: Normal affect. Const Vital Signs: 08/22/21 16:29 08/22/21 17:59 08/22/21 20:41 Temperature 96.9 F L Temperature Source Temporal Pulse Rate 88 76 Respiratory Rate 17 16 Blood Pressure 120/63 94/41 L 106/65 Blood Pressure Mean 82 58 Pulse Ox 98 96 Oxygen Delivery Method Room Air 08/22/21 20:43 Temperature Temperature Source Pulse Rate Respiratory Rate Blood Pressure Blood Pressure Mean Pulse Ox 96 Oxygen Delivery Method Room Air <Dr. Juan C Medina MD - Last Filed: 08/22/21 23:21> Physical Exam Const Vital Signs: 08/22/21 16:29 08/22/21 17:59 08/22/21 20:41 Temperature 96.9 F L Temperature Source Temporal Pulse Rate 88 76 Respiratory Rate 17 16 Blood Pressure 120/63 94/41 L 106/65 Blood Pressure Mean 82 58 Pulse Ox 98 96 Oxygen Delivery Method Room Air 08/22/21 20:43 Temperature Temperature Source Pulse Rate Respiratory Rate Blood Pressure Blood Pressure Mean Pulse Ox 96 Oxygen Delivery Method Room Air [facility] <BLANCA Rios - Last Filed: 08/22/21 20:20> [facility] Narrative Medical decision making narrative: Patient presents with right flank pain and nausea and vomiting. She appears well and nontoxic. Vital signs within normal limits. On exam she does have right mid abdominal tenderness with no peritoneal signs. No focal RUQ tenderness and negative Geller sign. She also has right CVA tenderness. CBC, BMP are unremarkable. Urinalysis is negative. No bacteriuria. Due to second trimester a renal ultrasound was obtained and does show right-sided hydronephrosis with no visible stone. Radiology read noted masslike region in the base of the urinary bladder which is likely her . The left ovary dermoid cyst that was mentioned in the report was removed. She will be prescribed Vicodin and Zofran. I discussed these findings with the on-call ENVIRONMENTAL SERVICES COORDINATOR at [facility] who states their office will arrange a urology referral and if the patient does not hear from them by Sunday to give them a call. Patient was comfortable with this plan and counseled on return precautions and was discharged in stable condition. Diagnoses 1. Right flank pain and hydronephrosis, likely kidney stone Lab Data Labs: Laboratory Results - last 24 hr 08/22/21 08/22/21 08/22/21 16:45 17:15 17:15 WBC 9.3 RBC 3.60 L Hgb 11.3 L Hct 33.0 L MCV 91.7 MCH 31.4 MCHC 34.2 RDW Std Deviation 42.0 RDW Coeff of Nicol 12.6 Plt Count 180 MPV 9.2 Immature Gran % (Auto) 0.400 Neut % (Auto) 78.7 H Lymph % (Auto) 10.1 L [place] % (Auto) 9.6 Eos % (Auto) 1.0 Baso % (Auto) 0.2 Absolute Neuts (auto) 7.3 Absolute Lymphs (auto) 0.94 Nucleated RBC % 0 Sodium 138 Potassium 3.7 Chloride 107 Carbon Dioxide 27.0 Anion Gap 4 L BUN 8 Creatinine 1.05 H Estim Creat Clear Calc 74.67 Est GFR (MDRD) Af Amer 80 Est GFR (MDRD) Non-Af 66 BUN/Creatinine Ratio 7.6 L Glucose 77 Calcium 8.5 Total Bilirubin 0.30 AST 11 L ALT 11 L Alkaline Phosphatase 59 Total Protein 6.4 Albumin 2.6 L Globulin 3.8 Albumin/Globulin Ratio 0.7 L Urine Color Yellow Urine Clarity Sl. Cloudy Urine pH 7.0 Ur Specific [place] 1.005 Urine Protein Negative Urine Glucose (UA) Normal Urine Ketones Negative Urine Occult Blood Negative Urine Nitrite Negative Urine Bilirubin Negative Urine Urobilinogen Normal Ur Leukocyte Esterase Negative Urine RBC 0 SEEN Urine WBC 0 SEEN Ur Squamous Epith Cells 0-5 SEEN Urine Bacteria 0 SEEN Urine Mucus 0 SEEN Radiography Diagnostic Testing: Clinical Impression(s) from Imaging Studies Renal Ultrasound 08/22/21 18:36 IMPRESSION: There is moderate hydronephrosis of the right kidney. Mass like area in the region of the base of the urinary bladder. This may be due to partially visualized left ovary dermoid that was noted on the prior MRI. Electronically Signed: Mehul Pavon MD at 19:39 EST Reading Location ID and State: [facility] / ID , Service support , <Dr. Juan C Medina MD - Last Filed: 08/22/21 23:21> [facility] MDM Narrative Medical decision making narrative: Presents with acute colicky right flank pain rating anteriorly. She has no history of renal ureterolithiasis. She is in her third trimester , 28 weeks gestation. She does have frequency. She has not noted any blood. She denies discomfort with urination. She denies respiratory symptoms. She denies intolerance to greasy or fried foods. Patient has right CVA tenderness. Abdomen is benign. Negative Geller sign. Lungs are clear to auscultation. Heart is regular. There is no murmur, gallop or rub. Rate is normal. There is no asymmetry, swelling, discoloration, leg vein distention, palpable cords or tenderness along the distribution of the deep venous system. Concern patient may have obstructing ureteral stone. Since she is ultrasound was obtained there is evidence of hydroureter and nephrosis on the right side. This is not noted on the left side. Doubt this to be physiologic in light of her history. She was treated with opiate analgesia and discharged to home with appropriate follow-up. Lab Data Attestation: I reviewed the patient's lab results. Labs: Laboratory Results - last 24 hr 08/22/21 08/22/21 08/22/21 16:45 17:15 17:15 WBC 9.3 RBC 3.60 L Hgb 11.3 L Hct 33.0 L MCV 91.7 MCH 31.4 MCHC 34.2 RDW Std Deviation 42.0 RDW Coeff of Nicol 12.6 Plt Count 180 MPV 9.2 Immature Gran % (Auto) 0.400 Neut % (Auto) 78.7 H Lymph % (Auto) 10.1 L [place] % (Auto) 9.6 Eos % (Auto) 1.0 Baso % (Auto) 0.2 Absolute Neuts (auto) 7.3 Absolute Lymphs (auto) 0.94 Nucleated RBC % 0 Sodium 138 Potassium 3.7 Chloride 107 Carbon Dioxide 27.0 Anion Gap 4 L BUN 8 Creatinine 1.05 H Estim Creat Clear Calc 74.67 Est GFR (MDRD) Af Amer 80 Est GFR (MDRD) Non-Af 66 BUN/Creatinine Ratio 7.6 L Glucose 77 Calcium 8.5 Total Bilirubin 0.30 AST 11 L ALT 11 L Alkaline Phosphatase 59 Total Protein 6.4 Albumin 2.6 L Globulin 3.8 Albumin/Globulin Ratio 0.7 L Urine Color Yellow Urine Clarity Sl. Cloudy Urine pH 7.0 Ur Specific [place] 1.005 Urine Protein Negative Urine Glucose (UA) Normal Urine Ketones Negative Urine Occult Blood Negative Urine Nitrite Negative Urine Bilirubin Negative Urine Urobilinogen Normal Ur Leukocyte Esterase Negative Urine RBC 0 SEEN Urine WBC 0 SEEN Ur Squamous Epith Cells 0-5 SEEN Urine Bacteria 0 SEEN Urine Mucus 0 SEEN Radiography Diagnostic Testing: Clinical Impression(s) from Imaging Studies Renal Ultrasound 08/22/21 18:36 IMPRESSION: There is moderate hydronephrosis of the right kidney. Mass like area in the region of the base of the urinary bladder. This may be due to partially visualized left ovary dermoid that was noted on the prior MRI. Electronically Signed: Mehul Pavon MD at 19:39 EST , Discharge Plan Triage Chief Complaint: Flank Pain ED Provider: Julieta Murray Dx/Rx/DC Orders Clinical Impression: Acute flank pain, Hydronephrosis Instructions: Understanding Hydronephrosis, ED Flank Pain, Uncertain Cause Prescriptions: New ondansetron 4 mg tablet,disintegrating 4 mg PO Q6H Qty: 12 RF: 0 hydrocodone-acetaminophen [hydrocodone-acetaminophen] 1 TABLET tablet 1 tab PO Q6H PRN PRN (Reason: Pain) 3 Days Qty: 10 RF: 0 No Action 1 mg Tablet 1 tab PO DAILY RF: 0 Primary Care Provider: Nicci Costello Referrals: Nicci Costello MD [Primary Care Provider] - Activity Restrictions/Additional Instructions: Today you were seen for flank pain. Your blood work looks normal. Your urinalysis was normal with no signs of infection. We did an ultrasound of your kidneys which does show that your right kidney is enlarged which is called hydronephrosis. They did not see a visible kidney stone, however it is possible that this is present and will pass. I prescribed Zofran which is for nausea and vomiting. You can take Tylenol as needed for pain every 6 hours, but if this is not adequately treating your pain I also prescribed Vicodin. Do not take Tylenol with the Vicodin as it contains this ingredient. The OB office will arrange a referral to urology. They said if you do not hear from their office by Sunday to give them a call. Disposition Disposition: Home, Self Care Discharge Date/Time: 08/22/21 20:44
[2021-08-22 18:23] LABS: Absolute Lymphocyte Count 0.94 X10^3/uL (0.83-4.51); Absolute Neutrophil Count 7.3 X10^3/uL (2.0-7.7); Basophil# 0.02 X10^3/uL; Basophil% 0.2 % (0-1); Eosinophil# 0.09 X10^3/uL; Hemoglobin 11.3 g/dL (12.0-15.0); Lymphocyte # 0.94 X10^3/ul (0.83-4.51); Lymphocyte % 10.1 % (19-41); Mean Corp Hgb Conc 34.2 g/dL (32-36); Mean Corpuscular Hgb 31.4 pg (27.0-32.0); Mean Corpuscular Volume 91.7 fL (81-99); Mean Platelet Vol. 9.2 fl (6.2-12.0); Monocyte# 0.89 X10^3/uL; Monocyte% 9.6 % (0-10); NRBC Flagged by Analyzer 0 % (0-5); Neutrophil # 7.31 X10^3/uL (2.7-7.7); Neutrophil % 78.7 % (47-70); Platelet Count 180 K/mm3 (150-450); RBC Distribution Width CV 12.6 % (11.6-14.6); White Blood Count 9.3 K/mm3 (4.4-11.0)
[2021-08-22] MEDS: Acetaminophen 500 MG Tablet 1000 MG PO (18:24)
[2021-08-22] MEDS: 0.9% Normal Saline 1,000 ML 999 ML IV (18:24)
[2021-08-22] MEDS: Ondansetron 4 MG/2 ML Vial IV (18:25)
[2021-08-22 18:32] LABS: ALB/GLOB Ratio 0.7 RATIO (0.9-2.4); AST(SGOT) 11 U/L (15-37); Alanine Aminotransfer ALT/SGPT 11 U/L (13-56); Albumin, Serum 2.6 g/dL (3.2-5.0); Alkaline Phosphatase 59 U/L (45-117); Anion Gap 4 (5-15); BUN 8 mg/dL (7-18); BUN/Creat Ratio 7.6 RATIO (10-20); Calcium,Total 8.5 mg/dL (8.5-10.1); Chloride 107 mmol/L (98-107); Creatinine, Serum 1.05 mg/dL (0.55-1.02); EST Glomerular Filtration Rate 66 mL/min (>60); Est Glom Filt Rate - Afr Amer 80 mL/min (>60); Estimated Creatinine Clearance 74.67 ml/min; Globulin 3.8 g/dL (2.2-4.2); Glucose 77 mg/dL (74-106); Potassium 3.7 mmol/L (3.5-5.1); Protein, Total 6.4 g/dL (6.4-8.2); Sodium Level 138 mmol/L (136-145)
--- NOTE | 2021-08-22 18:36 | US_ITS ---
STUDY: RENAL ULTRASOUND - COMPLETE REASON FOR EXAM: Female, 30 years old. right flank pain TECHNIQUE: Ultrasound evaluation of the kidneys was performed with real-time and static shirley-scale imaging. COMPARISON: 11.21.18 CT. FINDINGS: RIGHT KIDNEY: with mild renal hypertrophy. The right kidney measures 13.8 cm. The renal cortex measures 1.3 cm. There is a normal cortex of the right kidney. There is no right renal mass or cyst. There are no right renal calculi. There is moderate hydronephrosis of the right kidney. DISTAL RIGHT URETER: There is non-visualization of the distal right ureter. There is no demonstrated right ureterovesical junction calculus. There is no demonstrated right ureteral jet. LEFT KIDNEY: Normal location of the left kidney, which is normal in size. The left kidney measures 11.4 cm. The renal cortex measures 1.3 cm. There is a normal cortex of the left kidney. There is no left renal mass or cyst. There are no left renal calculi. There is no left hydronephrosis. DISTAL LEFT URETER: There is non-visualization of the distal left ureter. There is no demonstrated left ureterovesical junction calculus. There is no demonstrated left ureteral jet. AORTA: There is obscuration of the abdominal aorta by overlying bowel gas I.V.C.: It is not visualized. There is too much overlying bowel gas. BLADDER: The distended urinary bladder has a volume in cc of 178. There is focal wall thickening of the distended bladder. There is a hypoechoic area in the urinary bladder. There are no demonstrated bladder calculi. US/Kidney and Bladder IMPRESSION: There is moderate hydronephrosis of the right kidney. Mass like area in the region of the base of the urinary bladder. This may be due to partially visualized left ovary dermoid that was noted on the prior MRI. Electronically Signed: Mehul Pavon MD at 19:39 EST ,
[2021-08-22 20:41] VITALS: BP 106/65; PULSE 76; RESP 16; O2SAT 96
[2021-08-22 20:43] VITALS: O2SAT 96
== END 2021-08-22 20:44 | disposition home or self-care (01) ==
PROVIDERS: Emergency Provider Physician Assistant; PCP Family Medicine; Visit Provider Physician Assistant
DX: O26.833 Pregnancy related renal disease, third trimester (principal); N13.4 Hydroureter; Z3A.28 28 weeks gestation of pregnancy; N13.30 Unspecified hydronephrosis; O34.83 Maternal care for other abnormalities of pelvic organs, third trimester; O99.891 Other specified diseases and conditions complicating pregnancy; D27.1 Benign neoplasm of left ovary
CPT/HCPCS: 76770; 80053; 81001; 85025; 96361; 96374; 99284; J7030; A4216; J2405

== ENCOUNTER 2021-10-25 18:41 | Emergency (ER) | payer OTHER, SELFPAY ==
[2021-10-25 18:42] VITALS: BP 134/102; PULSE 116; RESP 18; TEMP 36.3; O2SAT 97; BMI 34.3
--- NOTE | 2021-10-25 19:22 | CT_ITS ---
STUDY: CT ABDOMEN AND PELVIS WITH CONTRAST REASON FOR EXAM: Female, 31 years old. RLQ abd pain and 37 weeks RADIATION DOSAGE (If Supplied By Facility): CTDIvol = ( 13.66 ) mGy, DLP = ( 1161.94 ) mGycm TECHNIQUE: Transaxial images were obtained from the dome of the diaphragm to the symphysis pubis without oral contrast. IV 100mL Isovue-300 was administered. Sagittal and coronal images were reconstructed. Individualized dose optimization techniques were used for this CT. COMPARISON: None. FINDINGS: The visualized lung bases are unremarkable. The visualized portions of the heart are within normal limits. Normal liver. Normal gallbladder and extrahepatic biliary system. Normal spleen. Normal pancreas. Normal bilateral adrenal glands. Multiple bilateral nonobstructing renal stones and mild dilatation of the right renal pelvis. Normal visualized stomach. Normal small intestine. Normal colon. The appendix is visualized and appears normal. Normal abdominal aorta. Normal inferior vena cava. Normal retroperitoneum. Normal urinary bladder. Single intrauterine . Fetus is not evaluated on this examination. Normal abdominal wall. Normal osseous structures. CT/Abdomen/Pelvis W IV Cont ONLY IMPRESSION: Normal appendix. Multiple bilateral nonobstructing renal stones mild dilatation of the right renal pelvis may be physiologic. Single intrauterine is not evaluated for anatomy on this examination. Electronically Signed: Skip Marley MD at 20:09 EDT ,
--- NOTE | 2021-10-25 19:23 | ED.VIS.GI ---
HPI HPI - GI History of Present Illness Chief Complaint: Abd Pain Informant: patient Abdominal Pain/Flank Pain Onset: Days Context: Gradual Onset Timing: Continuous Location: RLQ Current Severity: Mild Maximum Severity: Mild Worsened by: Nothing Relieved by: Nothing Nausea/Vomiting/Emesis GI Symptom: Positive for Nausea and Vomiting Onset: Today Severity: Mild Diarrhea/Melena/Hematochezia GI Symptom: Negative for Diarrhea, Melena and Hematochezia Associated Symptoms Associated Symptoms: Negative for Dysuria, Frequency and Hematuria Narrative Narrative: 31-year-old female Ab0. Currently is 37 weeks . Due date is November 13 she is got a scheduled on November 08. Today she had some nausea and vomiting. She saw her [employer] in the office. They were concerned because she had right lower quadrant abdominal pain and sent her in for a CAT scan to rule out appendicitis. Patient had a prior in the past. She has had her left ovary and tube removed in the past secondary to a cyst. She is also had a prior kidney stone with this on the right and she has had prior ureteral implant surgery. She denies any dysuria or hematuria. She denies any fever. Prior similar symptoms: No Recent Illness/Hospitalization: No PFSH PFSH Medical History Acute pharyngitis, unspecified Shingles Home Medications [id number] [] 1 tab PO DAILY 03/23/21 [History Last Taken Unknown] hydrocodone-acetaminophen 1 tab PO Q6H PRN PRN 3 Days #10 tablet 08/22/21 [Rx Last Taken Unknown] ondansetron 4 mg PO Q6H #12 tab 08/22/21 [Rx Last Taken Unknown] ondansetron 4 mg PO Q6H PRN #7 tab 10/25/21 [Rx Last Taken Unknown] Allergy/AdvReac Type Severity Reaction Status Date / Time No Known Allergies Allergy Verified 10/25/21 18:46 Surgical History History of urinary tract surgery Social History Smoking Status: Never smoker alcohol intake: never substance use type: does not use caffeine: Yes what type of physical activity do you participate in: running frequency: 3-4 times per week seatbelt use: always do you feel safe at home: Yes additional social history: - [employer] 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 Review of Systems ROS Unobtainable: Denies due to encephalopathy Constitutional Constitutional ED: Denies fever(s) ENT ENT ED: Denies ear pain Cardiovascular Cardiovascular: Denies chest pain Respiratory/Chest Respiratory/Chest: Denies dyspnea Gastrointestinal Gastrointestinal: Reports abdominal pain, nausea and vomiting; Denies constipation, diarrhea or melena Genitourinary Genitourinary ED: Denies dysuria or hematuria Musculoskeletal Musculoskeletal: Denies myalgias Integumentary Denies rash Neurologic Neurologic: Denies headache(s) Psychiatric Psychiatric: Denies depression Endocrine Endocrinology: Denies polyuria Hematologic/Lymphatic Hematologic/Lymphatic: Denies easy bruising Allergic/Immunologic Allergic/Immunologic ED: Denies urticaria EXAM Physical Exam Narrative Exam Narrative: 31-year-old female no acute distress. Vital signs stable afebrile. H EENT exam unremarkable. Lungs clear. Heart regular rhythm. Rate about 105. Abdomen soft. Enlarged uterus secondary to her . Mild tenderness right lower quadrant. No peritoneal signs. Normal bowel sounds. No hernia or mass. No signs of obstruction. Moving all 4 extremities. Calves nontender no edema. Neurologically she is awake and alert. Const Vital Signs: 10/25/21 18:42 10/25/21 20:13 Temperature 97.3 F L Temperature Source Temporal Pulse Rate 116 H 85 Respiratory Rate 18 16 Blood Pressure 134/102 H 107/62 Blood Pressure Mean 112 77 Pulse Ox 97 98 Oxygen Delivery Method Room Air Room Air Positive well nourished and well developed; Negative for cachectic, contractures or unkempt General Appearance ED: well developed and NAD; Negative for unkempt, cachectic, contractures or pallor Nutritional Appearance: Negative for cachectic HEENT Reports moist mucous membranes normocephalic and atraumatic; Negative for trauma or tenderness Eyes PERRL and EOMs intact bilaterally General Eye ED: Negative for pale conjunctiva or scleral icterus Neck no lymphadenopathy, supple and no JVD General: Negative for tenderness Resp normal respiratory effort and clear to auscultation bilaterally Auscultation: Negative for rales, rhonchi or wheezes Cardio regular rhythm, S1 normal heart sound, S2 normal heart sound and no murmurs Rate: tachycardic GI non-distended and no masses; Negative for non-tender Auscultation: normoactive bowel sounds Palpation: soft and tender RLQ; Negative for guarding, rigid or rebound tenderness present Back/Spine no CVA tenderness General Back: Negative for CVA tenderness Extremity full ROM General Extremety ED: Negative for edema or tenderness General Extremity: Negative for edema Neuro moves all extremities Sensorium / Orientation: alert, oriented to person, oriented to place and oriented to time; Negative for orientation impaired, confused, lethargic or stuporous Motor Exam: strength 5/5 throughout Psych mental status grossly normal and thought process normal Appearance: Negative for unkempt Skin no wounds General Skin Exam: Negative for jaundice or pallor Lesions: no lesions Rashes: no rashes MDM MDM MDM Narrative Medical decision making narrative: 31-year-old Ab0 female is 37 weeks . With right lower quadrant abdominal pain nausea and vomiting. Seen by her [employer] earlier today. Had heart tones done there and here which were 172. Was sent in for a CAT scan to rule out appendicitis. She will be treated with IV fluids and IV Zofran for nausea. Repeat exam patient is doing well at 9:20 PM. Abdomen benign. She will be discharged to home. Follow-up with her OB as needed. Return if worse. Zofran as needed for nausea. Lab Data Attestation: I reviewed the patient's lab results. Lab results narrative: CBC shows a white count of 7. H&H 11.8 and 34.6. Platelets 146. Electrolytes potassium at 3.4. Gap is 7 BUN of 5 and creatinine 0.5. Glucose 99. Liver enzymes unremarkable. UA unremarkable. No nitrites no red or white cells. CAT scan showed a normal appendix. Renal stones no acute calculi. Mild dilatation of the right renal pelvis felt to be physiologic secondary to . Labs: Laboratory Results - last 24 hr 10/25/21 10/25/21 10/25/21 19:25 19:25 19:25 WBC 7.3 RBC 3.92 L Hgb 11.8 L Hct 34.6 L MCV 88.3 MCH 30.1 MCHC 34.1 RDW Std Deviation 41.0 RDW Coeff of Nicol 13.0 Plt Count 146 L MPV 9.2 Immature Gran % (Auto) 0.500 Neut % (Auto) 87.5 H Lymph % (Auto) 6.6 L Eddy % (Auto) 5.2 Eos % (Auto) 0.1 Baso % (Auto) 0.1 Absolute Neuts (auto) 6.4 Absolute Lymphs (auto) 0.48 L Nucleated RBC % 0 Differential Comment SCANNED Sodium 136 Potassium 3.4 L Chloride 108 H Carbon Dioxide 21.0 Anion Gap 7 BUN 5 L Creatinine 0.55 Estim Creat Clear Calc 141.29 Est GFR (MDRD) Af Amer 167 Est GFR (MDRD) Non-Af 138 BUN/Creatinine Ratio 9.0 L Glucose 99 Calcium 8.7 Total Bilirubin 0.40 AST 12 L ALT 15 Alkaline Phosphatase 88 Total Protein 6.6 Albumin 2.6 L Globulin 4.0 Albumin/Globulin Ratio 0.6 L Urine Color Yellow Urine Clarity Clear Urine pH 7.0 Ur Specific Holliday 1.010 Urine Protein Negative Urine Glucose (UA) Normal Urine Ketones 50 H Urine Occult Blood 25 H Urine Nitrite Negative Urine Bilirubin Negative Urine Urobilinogen Normal Ur Leukocyte Esterase Negative Urine RBC 0 SEEN Urine WBC 0-5 SEEN Ur Squamous Epith Cells 0 SEEN Urine Bacteria 1+ Urine Mucus 0 SEEN Radiography Diagnostic Testing: Clinical Impression(s) from Imaging Studies Abdomen/Pelvis CT 10/25/21 19:22 IMPRESSION: Normal appendix. Multiple bilateral nonobstructing renal stones mild dilatation of the right renal pelvis may be physiologic. Single intrauterine is not evaluated for anatomy on this examination. Electronically Signed: Skip Marley MD at 20:09 EDT , Discharge Plan Triage Chief Complaint: Abd Pain ED Provider: Devin Mitchell Dx/Rx/DC Orders Clinical Impression: Abdominal pain, Third trimester , History of kidney stones Instructions: Abdominal Pain Prescriptions: New ondansetron 4 mg tablet,disintegrating 4 mg PO Q6H PRN (Reason: nausea and vomiting) Qty: 7 RF: 0 No Action 1 mg Tablet 1 tab PO DAILY RF: 0 ondansetron 4 mg tablet,disintegrating 4 mg PO Q6H Qty: 12 RF: 0 hydrocodone-acetaminophen [hydrocodone-acetaminophen] 1 TABLET tablet 1 tab PO Q6H PRN PRN (Reason: Pain) 3 Days Qty: 10 RF: 0 Primary Care Provider: Nicci Costello Referrals: Nicci Costello MD [Primary Care Provider] - Mari Fontenot MD [STAFF PHYSICIAN] - Keep Merly appointment Activity Restrictions/Additional Instructions: Your work-up was negative. No specific cause for your pain. Could be that you passed a small stone that is possible. There is no signs of infection in your urine or any blood. Your appendix was seen and normal. I did call and let Dr. Coffman know about your test results. Zofran as needed for nausea. Disposition Disposition: Home, Self Care
[2021-10-25] MEDS: Ondansetron 4 MG/2 ML Vial IV (19:33)
[2021-10-25] MEDS: 0.9% Normal Saline 1,000 ML 1000 ML IV (19:33)
[2021-10-25 19:35] LABS: Mucous, Urine 0 SEEN /hpf (<or=2+); Red Blood Cells-Urine 0 SEEN /hpf (0-5); Squamous Epithelial Cells - UA 0 SEEN /hpf (5-10)
[2021-10-25 19:37] LABS: Absolute Lymphocyte Count 0.48 X10^3/uL (0.83-4.51); Absolute Neutrophil Count 6.4 X10^3/uL (2.0-7.7); Basophil# 0.01 X10^3/uL; Basophil% 0.1 % (0-1); Eosinophil# 0.01 X10^3/uL; Eosinophils% 0.1 % (0-5); Hematocrit 34.6 % (37-47); Hemoglobin 11.8 g/dL (12.0-15.0); Lymphocyte # 0.48 X10^3/ul (0.83-4.51); Lymphocyte % 6.6 % (19-41); Mean Corp Hgb Conc 34.1 g/dL (32-36); Mean Corpuscular Hgb 30.1 pg (27.0-32.0); Mean Corpuscular Volume 88.3 fL (81-99); Mean Platelet Vol. 9.2 fl (6.2-12.0); Monocyte# 0.38 X10^3/uL; Monocyte% 5.2 % (0-10); NRBC Flagged by Analyzer 0 % (0-5); Neutrophil # 6.36 X10^3/uL (2.7-7.7); Neutrophil % 87.5 % (47-70); POSITIVE DIFFERENTIAL YES; Platelet Count 146 K/mm3 (150-450); Red Blood Count 3.92 M/mm3 (4.2-5.4); White Blood Count 7.3 K/mm3 (4.4-11.0)
[2021-10-25 19:39] LABS: Color, Urine Yellow (Yellow); Glucose, Dipstick Normal (Normal); Ketone-Dipstick 50 mg/dl (Negative); Leukocyte Esterase-Dipstick Negative /ul (Negative); Nitrite-Dipstick Negative (Negative); Occult Blood-Urine 25 /ul (Negative); Protein-Dipstick Negative (Negative); Urine Bilirubin Dipstick Negative (Negative); Urine Clarity Clear (Clear); Urine Urobilinogen Normal (Normal)
[2021-10-25 19:43] LABS: Differential Indicated SCAN CRITERIA MET
[2021-10-25 19:54] LABS: ALB/GLOB Ratio 0.6 RATIO (0.9-2.4); AST(SGOT) 12 U/L (15-37); Alanine Aminotransfer ALT/SGPT 15 U/L (13-56); Albumin, Serum 2.6 g/dL (3.2-5.0); Alkaline Phosphatase 88 U/L (45-117); Anion Gap 7 (5-15); BUN 5 mg/dL (7-18); Calcium,Total 8.7 mg/dL (8.5-10.1); Chloride 108 mmol/L (98-107); Creatinine, Serum 0.55 mg/dL (0.55-1.02); EST Glomerular Filtration Rate 138 mL/min (>60); Est Glom Filt Rate - Afr Amer 167 mL/min (>60); Estimated Creatinine Clearance 141.29 ml/min; Glucose 99 mg/dL (74-106); Potassium 3.4 mmol/L (3.5-5.1); Protein, Total 6.6 g/dL (6.4-8.2); Sodium Level 136 mmol/L (136-145)
[2021-10-25 19:58] LABS: Bacteria 1+ /hpf (None Seen); White Blood Cells 0-5 SEEN /hpf (0-5)
[2021-10-25 20:13] VITALS: BP 107/62; PULSE 85; RESP 16; O2SAT 98
[2021-10-25 20:14] LABS: Differential Comment SCANNED
--- NOTE | 2021-10-25 21:33 | ED.RN ---
PER DR. DEE, PHARMACY IS CURRENTLY NOT FILLING PRESCRIPTIONS DUE TO SYSTEM BEING DOWN. DR. DEE ORDERED ZOFRAN TAB TO TAKE HOME. WILL SEND WITH PT. ON INSTRUCTIONS ON WHEN AND HOW TO TAKE MEDICATION.
[2021-10-25] MEDS: Ondansetron ODT 4 MG Tablet PO (21:38)
== END 2021-10-25 21:42 | disposition home or self-care (01) ==
PROVIDERS: Emergency Provider Emergency Medicine; PCP Family Medicine; Visit Provider Emergency Medicine
DX: O26.893 Other specified pregnancy related conditions, third trimester (principal); R10.9 Unspecified abdominal pain; Z87.442 Personal history of urinary calculi; Z3A.37 37 weeks gestation of pregnancy; R11.2 Nausea with vomiting, unspecified
CPT/HCPCS: 74177; 80053; 81001; 85025; 96361; 96374; 99283; J7030; Q9967; A4216; J2405

== ENCOUNTER → 2021-11-04 | Outpatient (CLI) | payer OTHER, SELFPAY | END | disposition home or self-care (01) | LOC: PSN 12:36 | PROVIDERS: PCP Family Medicine; Visit Provider Obstetrics & Gynecology | DX: Z34.93 Encounter for supervision of normal pregnancy, unspecified, third trimester (principal) | CPT/HCPCS: 87426; C9803 ==

== ENCOUNTER 2021-11-08 09:38 | Inpatient (IN) | payer OTHER, SELFPAY ==
--- NOTE | 2021-11-07 16:18 | PCM.HP.BLA ---
History and Physical Date of Admission: 11/08/21 Pre-Op History and Physical ? HPI: The patient is a 31 year old female presenting for pre-operative visit. She is scheduled for , for elective Repeat Cs on . Procedure discussed along with risks, benefits and complications. Other/ alternatives discussed for management. Consent form signed? Yes. ? ? PAST MEDICAL HISTORY PAST MEDICAL HISTORY Diagnosis Date ? Dermoid cyst ? ? fracture ? ? right wrist-roller skating ? Infertility, female ? ? PMH - PAST MEDICAL HISTORY OF ? color vision normal ? PMH - PAST MEDICAL HISTORY OF ? ? varicella at age 6 years ? PMH - PAST MEDICAL HISTORY OF 10/03 ? fractured right wrist ? PMH - PAST MEDICAL HISTORY OF ? ? bilateral kidney reflux surgery @ 7 years of age ? ? PAST SURGICAL HISTORY PAST SURGICAL HISTORY Procedure Laterality Date ? OOPHORECTOMY PARTIAL/TOTAL UNI/BI ? 12/2018 ? left ovary for dermoid cyst ? URETEROPLASTY PLASTIC OPERATION URETER ? CURRENT MEDICATIONS Current Outpatient Medications Medication Sig Dispense Refill ? Wftmfcnu-Dr-Ufq-Fe-FA ( VITAMIN) tab Take 1 tablet by mouth. ? ? ? No current facility-administered medications for this visit. ? ? ALLERGIES: Patient has no known allergies. ? PERSONAL HISTORY: SOCIAL HISTORY Social History ? Tobacco Use ? Smoking status: Never Smoker ? Smokeless tobacco: Never Used Vaping Use ? Vaping Use: Never used Substance Use Topics ? Alcohol use: Not Currently ? ? Comment: occasionally drinks ? Drug use: No ? FAMILY HISTORY: FAMILY HISTORY FAMILY HISTORY Problem Relation Age of Onset ? No Known Problems Mother ? ? other (anemia) Father ? ? other (PCOS) Sister ? ? No Known Problems Sister ? ? No Known Problems Maternal Grandmother ? ? Heart Maternal Grandfather ? ? No Known Problems Paternal Grandmother ? ? Heart Paternal Grandfather ? ? Diabetes Other ? ? maternal side ? No Known Problems Son ? ? ? REVIEW OF SYMPTOMS: negative except as noted above PHYSICAL EXAMINATION: ? VITALS: Blood pressure 116/64, weight 215 lb (97.5 kg), last menstrual period 01/31/2021, currently . ? GENERAL: The patient is well nourished, well hydrated in no acute distress. , The patient is oriented to time, place, and person. NECK: full range of motion ABD: soft, gravid, non tender ? IMPRESSION: @ 38.2 weeks- scheduled cs at 39.2 weeks ? PLAN: Repeat elective CS ? Pt has been counseled on risks/benefits and alternatives of surgery including but not limited to anesthesia, bleeding, infection, injury to pelvic structures including bowel, bladder, ureters and vessels. Pt wishes to proceed with surgery at this time. COVID testing ordered Pre and post op instructions reviewed ? I have reviewed and updated past medical and surgical history, medications and allergies Mari Coffman MD
--- NOTE | 2021-11-07 17:56 | EX.PCM.OBRPT ---
Assessment & Plan (1) 39 weeks gestation of : (2) Status post repeat low transverse section: (3) Delivery by section: Maternal Data Information Final YARA Source: US <20 weeks Gestational age: 39.2 Details Operative Information Date of Procedure: 11/08/21 Pre-Operative Diagnosis: 39 weeks, elective repeat cs Post-Operative Diagnosis: same, live male Indications for : Repeat Elective Classification: Scheduled Procedure Type: low transverse phlebotomy manager #1: Anny Mcmillan Type of Anesthesia: Spinal Antibiotic Given: Ancef 2 grams IV x1 Drain: Desir to straight drain Estimated Blood Loss: 600 Fluids Replaced: 800 Procedure Start Time: 12:19 Procedure Stop Time: 12:55 Time of Delivery: 12:23 Findings Description of Procedure: After informed consent was obtained the patient was taken the operating room she was given spinal anesthesia. She was then placed in the supine position. She was prepped and draped in the normal sterile fashion. Anesthesia was found to be adequate. At this time previous scar was excised in elliptical fashion followed by a Pfannenstiel skin incision was made with a knife was carried down to the underlying layer of the fascia. The fascial incision was then extended laterally using curved Davis scissor. Attention was then turned to the superior aspect of the fascial edge was grasped with 2 straight [place] clamps tented up and the rectus muscle dissected off sharply using curved Davis scissor. Attention was then turned to the inferior aspect where again [place] clamps were placed in the rectus muscles were tented up and the fascia was dissected off sharply using the curved Davis scissor. Rectus muscles were then in the midline sharply with scalpel and peritoneum was entered bluntly. Gentle opposing traction was placed. At this time the vesicouterine peritoneum was identified. Scalpel was used to make a uterine incision in a low transverse fashion. The uterus was then entered bluntly gentle opposing traction was placed to extend this incision. Membranes were ruptured clear. Infant's head was brought to the uterine incision was delivered atraumatically. Cord was clamped and cut was handed to the waiting nursery team. The Placenta was removed from the uterus. The uterus was then removed from the abdominal cavity. The uterus was cleared of all clots and debris using a lap. At this time the uterine incision was reapproximated using #1 Vicryl in a running locked fashion. followed by nikos [id number]-egnnz sutures using 1-0 Vicryl suture for hemostasis. Right tube and ovary appeared normal. Left tube and ovary were surgically absent. Hemostasis was appreciated. Posterior cul-de-sac was then cleared of all clots and debris. Uterus was placed back in the abdominal cavity. Gutters were cleared of all clots and debris. Uterine incision was reevaluated and noted to be of excellent hemostasis. Kristian placed. At this time the peritoneum and muscle were grasped with Kellys reapproximated using #2 Vicryl suture in a running fashion. Kristian placed over the rectus muscle. Fascia was then reapproximated using #1 Vicryl in a running fashion. Subcu layer was reapproximated with #2 0 plain gut suture in an interrupted fashion. Kristian placed in the subcu layer. Kenalog 40 mg/mL was injected along the incision line to prevent keloid formation. Subcu layer was closed using 4-0 Monocryl in a subcu fashion. Dry sterile dressing was applied. Instrument lap needle count correct ?2. Anticipated normal postoperative course. Presentation: Positive for Vertex Amniotic Membrane Rupture Type: Artificial Amniotic Fluid Description: Clear Placental Delivery Description: Manual Removal Placenta Disposition: [facility] Cord Vessel Description: 3 Vessels Cord Entanglement: None A Gender: Male (1 minute): 7 (5 minute): 8 Delayed Cord Clamping: Yes Complications Risks of Surgery Discussed w/Patient: Bleeding, Anesthesia Risks, Infection and Injury to surrounding structure(s) including bowel and bladder Complications: none Admit VTE Documentation VTE Present on Admission: Yes VTE Mechan Device Prophylaxis: SCD's VTE Pharm Prophylaxis Ordered: No Reason Prophylaxis Not Ordered: Procedure Not Indicated
[2021-11-08] VITALS (16 sets, daily range): BP systolic 91–107; BP diastolic 42–74; PULSE 65–90; RESP 16–22; TEMP 36.1–37.2; O2SAT 96–100; BMI 34.2
[2021-11-08] MEDS: Lactated Ringers 1,000 ML 999 ML IV (10:45)
[2021-11-08 11:02] LABS: Absolute Lymphocyte Count 1.14 X10^3/uL (0.83-4.51); Absolute Neutrophil Count 5.7 X10^3/uL (2.0-7.7); Basophil# 0.02 X10^3/uL; Basophil% 0.3 % (0-1); Eosinophil# 0.11 X10^3/uL; Eosinophils% 1.4 % (0-5); Hemoglobin 11.5 g/dL (12.0-15.0); Lymphocyte # 1.14 X10^3/ul (0.83-4.51); Lymphocyte % 14.7 % (19-41); Mean Corp Hgb Conc 33.8 g/dL (32-36); Mean Corpuscular Hgb 30.2 pg (27.0-32.0); Mean Corpuscular Volume 89.2 fL (81-99); Mean Platelet Vol. 9.3 fl (6.2-12.0); Monocyte# 0.78 X10^3/uL; NRBC Flagged by Analyzer 0 % (0-5); Neutrophil % 73.2 % (47-70); Platelet Count 182 K/mm3 (150-450); RBC Distribution Width CV 12.9 % (11.6-14.6); RBC Distribution Width SD 41.9 fl (35.1-43.9); Red Blood Count 3.81 M/mm3 (4.2-5.4); White Blood Count 7.8 K/mm3 (4.4-11.0)
[2021-11-08] MEDS: Acetaminophen 500 MG Tablet 1000 MG PO ×2 (11:28→17:57)
[2021-11-08] MEDS: Lactated Ringers 1,000 ML 150 ML IV (11:50)
[2021-11-08] MEDS: Sodium Citrate/Citric Acid 30 ML UDC PO (11:53)
[2021-11-08] MEDS: Cefazolin 2 GM in 0.9% Normal Saline 100 ML IV (12:12)
[2021-11-08] MEDS: Triamcinolone Acetonide 40 MG/ML Vial IM (12:30)
[2021-11-08] MEDS: Oxytocin 30 units/NS 500 ml 30 UNITS/500 ML IV.SOLN 167 UNITS IV (13:35)
[2021-11-08] MEDS: Ketorolac 30 MG/ML Syringe IV ×2 (13:45→19:01)
[2021-11-08] MEDS: Lactated Ringers 1,000 ML 100 ML IV (16:05)
[2021-11-09 01:00] VITALS: BP 100/45; PULSE 63; RESP 16; TEMP 36.2; O2SAT 98
[2021-11-09] MEDS: Acetaminophen 500 MG Tablet 1000 MG PO ×4 (01:09→18:17)
[2021-11-09] MEDS: Ketorolac 30 MG/ML Syringe IV ×2 (01:09→06:13)
[2021-11-09] MEDS: 0.9% Saline Lock 10 ML Syringe IV ×2 (01:10→06:13)
[2021-11-09 04:08] VITALS: BP 90/51; PULSE 64; RESP 16; TEMP 36.4; O2SAT 96
[2021-11-09 06:29] LABS: Hematocrit 29.3 % (37-47); Hemoglobin 9.9 g/dL (12.0-15.0); Mean Corp Hgb Conc 33.8 g/dL (32-36); Mean Corpuscular Hgb 30.7 pg (27.0-32.0); Mean Corpuscular Volume 90.7 fL (81-99); Mean Platelet Vol. 9.1 fl (6.2-12.0); Platelet Count 181 K/mm3 (150-450); RBC Distribution Width CV 12.9 % (11.6-14.6); RBC Distribution Width SD 42.7 fl (35.1-43.9); Red Blood Count 3.23 M/mm3 (4.2-5.4); White Blood Count 9.6 K/mm3 (4.4-11.0)
--- NOTE | 2021-11-09 07:38 | PN.OBGYN_ITS ---
Subjective Subjective Pain well controlled. I urged lochia. Ambulating and urinating and tolerating regular diet. Objective Data Objective Data Vital Signs: Vital Signs Temp Pulse Resp BP Pulse Ox 97.5 F L 64 16 90/51 L 96 11/09/21 04:08 11/09/21 04:08 11/09/21 04:08 11/09/21 04:08 11/09/21 04:08 Oxygen Delivery Method Room Air Weight: 96.3 kg Body Mass Index (BMI) 34.2 Intake & Output: Intake and Output for Last 24 Hours 11/07/21 11/08/21 11/09/21 23:59 23:59 23:59 Intake Total 2539.17 / 2539.17 Output Total 500 / 500 200 / 200 Balance 2038. / 2038. -200 / -200 Lab / Micro Data Result Diagrams: 11/09/21 06:20 Labs: Laboratory Results - last 24 hr 11/08/21 10:45: WBC 7.8, RBC 3.81 L, Hgb 11.5 L, Hct 34.0 L, MCV 89.2, MCH 30.2, MCHC 33.8, RDW Std Deviation 41.9, RDW Coeff of Nicol 12.9, Plt Count 182, MPV 9.3, Immature Gran % (Auto) 0.400, Neut % (Auto) 73.2 H, Lymph % (Auto) 14.7 L, Caswell % (Auto) 10.0, Eos % (Auto) 1.4, Baso % (Auto) 0.3, Absolute Neuts (auto) 5.7, Absolute Lymphs (auto) 1.14, Nucleated RBC % 0 11/08/21 10:45: Blood Type A POSITIVE, Antibody Screen NEGATIVE 11/09/21 06:20: WBC 9.6, RBC 3.23 L, Hgb 9.9 L, Hct 29.3 L, MCV 90.7, MCH 30.7, MCHC 33.8, RDW Std Deviation 42.7, RDW Coeff of Nicol 12.9, Plt Count 181, MPV 9.1 Physical Exam Const alert General Appearance: cooperative GI GI Narrative: soft, moderate distention, fundus firm, appropriately tender. Abdominal bandage clean dry and intact Assessment & Plan (1) Delivery by section: PLAN: Postoperative day #1 status post repeat section. is breast-feeding and doing well. Patient desires discharge home today. Mild acute blood loss anemia appropriate for blood loss during surgery.
--- NOTE | 2021-11-09 07:39 | DS.PCM_ITS ---
Providers Date of Admission: 11/08/21 Primary Care Physician: Dr. Nicci Costello MD Reason For Visit: REPEAT Diagnosis Discharge Diagnosis (1) Delivery by section: Status: Acute Medications at Discharge Home Medications [id number] [] 1 tab PO DAILY 03/23/21 ibuprofen 600 mg PO Q6H PRN 15 Days #60 tablet 11/09/21 Hospital Course Operations - (Repeat low transverse section performed on 11/08/2021) Procedures None Summary of Care Provided Hospital Course: Patient was admitted at 39+ weeks for repeat section on 11/08/2021. It was performed on difficulty. On postoperative day #1 patient was ambulating, urinating tolerating regular diet without difficulty. She was discharged home with routine instructions and follow-up. Weight / BMI Weight Weight: 96.3 kg Body Mass Index (BMI) 34.2 ABG / Lab / Microbiology Data Result Diagrams: 11/09/21 06:20 Laboratory: Laboratory Results - last 24 hr 11/08/21 10:45: WBC 7.8, RBC 3.81 L, Hgb 11.5 L, Hct 34.0 L, MCV 89.2, MCH 30.2, MCHC 33.8, RDW Std Deviation 41.9, RDW Coeff of Nicol 12.9, Plt Count 182, MPV 9.3, Immature Gran % (Auto) 0.400, Neut % (Auto) 73.2 H, Lymph % (Auto) 14.7 L, [place] % (Auto) 10.0, Eos % (Auto) 1.4, Baso % (Auto) 0.3, Absolute Neuts (auto) 5.7, Absolute Lymphs (auto) 1.14, Nucleated RBC % 0 11/08/21 10:45: Blood Type A POSITIVE, Antibody Screen NEGATIVE 11/09/21 06:20: WBC 9.6, RBC 3.23 L, Hgb 9.9 L, Hct 29.3 L, MCV 90.7, MCH 30.7, MCHC 33.8, RDW Std Deviation 42.7, RDW Coeff of Nicol 12.9, Plt Count 181, MPV 9.1 D/C Instructions Discharge Diet: No restrictions May resume sexual activity in: 4-6 weeks Lifting Restrictions: 20 pounds Additional Activity Instructions: Nothing in the vagina for 4-6 weeks. You may return to work/school in 6 weeks. Call your doctor if your incision/area has: Continuous Slow Oozing, Sudden Increased Bleeding, Increased Pain/ Swelling, Increased Redness and Foul Smelling Discharge Call your doctor if you observe: Fever of 101 or Higher and Using more than 1 pad per hour (for 2 hours) Suture Line Care: Avoid Pulling/Pushing and Avoid Pinching/Bending Cleanse incision/area with: Keep Dressing Clean & Dry Please Follow Up With: Jennifer Houston MD When: Call to make an appointment for an incision check in 1-2 [phone]. You will need a post check in 6 weeks. Meaningful Use Info Meaningful Use Diagnoses (Choose all that apply): None applicable Discharge Plan Admission Admit Date/Time: 11/08/21 09:38 Primary Reason for Your Visit: Repeat section Attending Provider: Mari Fotnenot Primary Care Provider: Nicci Costello Discharge Orders/Prescriptions Prescriptions: New ibuprofen [ibuprofen] 600 MG tablet 600 mg PO Q6H PRN (Reason: Pain) 15 Days Qty: 60 RF: 1 No Action 1 mg Tablet 1 tab PO DAILY RF: 0 Referrals / Follow Up: Nicci Costello MD [Primary Care Provider] - Disposition Disposition (needs filled in before D/C Order can be placed): Home, Self Care
[2021-11-09 08:15] VITALS: BP 103/53; PULSE 69; RESP 18; TEMP 36.7
[2021-11-09] MEDS: Senna/Docusate Sodium 1 Tablet PO (09:18)
[2021-11-09] MEDS: Ibuprofen 600 MG Tablet PO ×2 (11:56→18:17)
[2021-11-09 11:57] VITALS: BP 113/53; PULSE 68; RESP 17; TEMP 36.1
[2021-11-09 16:05] VITALS: BP 114/68; PULSE 62; RESP 17; TEMP 36.4
== END 2021-11-09 18:20 | disposition home or self-care (01) | DRG 788 ==
PROVIDERS: Admitting Provider Obstetrics & Gynecology; PCP Family Medicine; Visit Provider Obstetrics & Gynecology
PROC: 10D00Z1 Extraction of Products of Conception, Low, Open Approach (ICD-10-PCS; CPT 59514; principal; 2021-11-08 11:45)
DX: O34.211 Maternal care for low transverse scar from previous cesarean delivery (principal); Z37.0 Single live birth; Z3A.39 39 weeks gestation of pregnancy
CPT/HCPCS: 59050; 85025; 85027; 86850; 86900; 86901; 99218; 99251; J7120; A4216; G0378; G0463

== ENCOUNTER → 2021-11-29 | Outpatient (CLI) | payer OTHER, SELFPAY ==
--- NOTE | 2021-11-29 12:45 | CT_ITS ---
STUDY: CT ABDOMEN AND PELVIS WITHOUT CONTRAST REASON FOR EXAM: Female, 31 years old. HEMATURIA. Patient is 3 weeks . History of kidney stones. RADIATION DOSAGE (If Supplied By Facility): CTDIvol = ( 9.8 ) mGy, DLP = ( 521.52 ) mGycm TECHNIQUE: Transaxial images were obtained from the dome of the diaphragm to the symphysis pubis without oral contrast, and without intravenous contrast. Sagittal and coronal images were reconstructed. Individualized dose optimization techniques were used for this CT. COMPARISON: Comparison is made with prior examination dated 10/25/2021. FINDINGS: The visualized lung bases are unremarkable. The visualized portions of the heart are within normal limits. Normal liver. Normal gallbladder and extrahepatic biliary system. Normal spleen. Normal pancreas. Normal bilateral adrenal glands. 4 mm calculus in the upper midpole of the right kidney. Punctate calculus in the lower pole calyx of the right kidney. There is a 5.1 mm calculus in the upper pole of the left kidney. 5 mm calculus in the lower pole calyx of the left kidney. Normal visualized stomach. Normal small intestine. Normal colon. The appendix is visualized and appears normal. Normal abdominal aorta. Normal inferior vena cava. Normal retroperitoneum. Normal urinary bladder. There is a small umbilical hernia containing fat. Normal osseous structures. CT/Abdomen/Pelvis without Cont IMPRESSION: Nonobstructive bilateral intrarenal calculi more prominent on the left side. Electronically Signed: Panfilo Rodriguez MD at 13:20 EDT ,
== END | disposition home or self-care (01) ==
PROVIDERS: PCP Family Medicine; Referring Provider Family Medicine; Visit Provider Family Medicine
DX: R31.9 Hematuria, unspecified (principal)
CPT/HCPCS: 74176

== ENCOUNTER 2021-11-30 20:37 | Emergency (ER) | payer OTHER, SELFPAY ==
[2021-11-30 20:39] VITALS: BP 130/60; PULSE 117; RESP 25; TEMP 38.2; O2SAT 97; BMI 31.6
--- NOTE | 2021-11-30 20:50 | MRI_ITS ---
STUDY: MRI LUMBAR SPINE WITH AND WITHOUT CONTRAST REASON FOR EXAM: Female, 31 years old. s/p epidural, pain , fever TECHNIQUE: Standardized fat and water weighted pulse sequences were obtained in the sagittal and axial planes. IV 18ml dotarem was administered for the contrast portion of the examination. COMPARISON: CT abdomen and pelvis 11/29/2021 FINDINGS: Normal lordotic curvature with no focal malalignment. There is no fracture or focal osseous lesion. There are bilateral pars defects at L4. Note of S3 level T1 and T2 bright hemangioma. Visualized distal cord shows normal signal and contour. Postcontrast enhanced images show no abnormal cord enhancement. There is no intra or extradural fluid collection or mass lesion or inflammatory changes. No abnormal enhancement. Sagittal STIR images show no abnormal fluid signal in the paraspinous soft tissues. No evidence of ligamentous injury. CONUS terminates normally at the distal L1 level. More peripheral nerve roots are without clumping or tethering. L5-S1 intervertebral disc shows height loss and disc desiccation with mild degenerative endplate changes. There is a broad-based posterior disc herniation. This touches and slightly displaces the descending right S1 nerve root without impingement. There is trace right-sided neural foraminal narrowing at this level. No significant facet arthropathy. There is partial lumbarization of S1. L4-5 circumferential disc bulge slightly flattens the anterior thecal sac with without touching the descending nerve roots. There is no neural foraminal narrowing. There is some mild facet arthropathy at this level. L3-4, L2-3 and L1-2 discs show normal signal and height with no disc bulge or herniation and no central canal or neural foraminal narrowing. No facet arthropathy. MRI/Spine Lumbar W/WO Contrast IMPRESSION: Normal appearance of the thecal sac evidence of epidural abscess, hematoma or arachnoiditis. 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 L5-S1, right-sided, posterior broad-based disc herniation touches without impinging descending S1 nerve root. No areas of significant central spinal canal or neural foraminal narrowing. Electronically Signed: Last Agarwal DO at 23:12 EDT ,
[2021-11-30 21:22] LABS: Absolute Lymphocyte Count 0.62 X10^3/uL (0.83-4.51); Absolute Neutrophil Count 5.4 X10^3/uL (2.0-7.7); Basophil# 0.01 X10^3/uL; Basophil% 0.2 % (0-1); Eosinophil# 0.02 X10^3/uL; Eosinophils% 0.3 % (0-5); Hematocrit 33.3 % (37-47); Hemoglobin 10.9 g/dL (12.0-15.0); Lymphocyte # 0.62 X10^3/ul (0.83-4.51); Lymphocyte % 9.3 % (19-41); Mean Corp Hgb Conc 32.7 g/dL (32-36); Mean Corpuscular Hgb 29.7 pg (27.0-32.0); Mean Corpuscular Volume 90.7 fL (81-99); Mean Platelet Vol. 9.4 fl (6.2-12.0); Monocyte# 0.63 X10^3/uL; Monocyte% 9.5 % (0-10); NRBC Flagged by Analyzer 0 % (0-5); Neutrophil # 5.35 X10^3/uL (2.7-7.7); Neutrophil % 80.2 % (47-70); Platelet Count 159 K/mm3 (150-450); RBC Distribution Width CV 12.9 % (11.6-14.6); Red Blood Count 3.67 M/mm3 (4.2-5.4); White Blood Count 6.7 K/mm3 (4.4-11.0)
--- NOTE | 2021-11-30 21:35 | EDS_ITS ---
[facility] History of Present Illness Chief Complaint: Flank Pain Narrative Narrative: Patient presents with back pain for the past 2 days. The weeks ago she had a epidural injection and her pain was gone in the back but now it started again today. She has some flank pain and history of kidney stones but had normal CT abdomen pelvis yesterday. Apparently she has had a normal urinalysis. She has had a fever as high as 104 at home. She has had shakes. She is denying neck pain or stiffness. No headache. No vision changes. [facility] Medical History Acute pharyngitis, unspecified Infertility Kidney disease MRSA infection Shingles Teratoma Home Medications [id number] [] 1 tab PO DAILY 03/23/21 [History Last Taken 11/07/21 08:00] ibuprofen 600 mg PO Q6H PRN 15 Days #60 tablet 11/09/21 [Rx Last Taken Unknown] Allergy/AdvReac Type Severity Reaction Status Date / Time No Known Allergies Allergy Verified 11/30/21 20:39 Surgical History History of gynecologic surgery History of oophorectomy History of urinary tract surgery Previous section Social History Smoking Status: Never smoker alcohol intake: never substance use type: does not use caffeine: Yes what type of physical activity do you participate in: running frequency: 3-4 times per week seatbelt use: always do you feel safe at home: Yes additional social history: - [employer] 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) ROS ROS ED ROS Narrative Past medical history: Reviewed Medications: Reviewed Social history: Noncontributory Review of systems: All systems negative except as indicated General: Fever as in HPI Eyes: No visual changes ENT: No upper airway congestion, normal voice Neck: No neck pain Cardiovascular: No chest pain Respiratory: No shortness of breath or cough Gastrointestinal: No abdominal pain, nausea vomiting or diarrhea Genitourinary: No dysuria, no frequency urgency Musculoskeletal: Denies myalgias no difficulty with ambulation Back: Back pain as in HPI Skin: No rash Neurological: No memory loss, confusion or any focal weakness Psych: No recent behavioral changes Hematologic: No easy bleeding or easy bruising EXAM Physical Exam Narrative Exam Narrative: Physical exam General: Patient appears uncomfortable but she does not appear ill. Head: Normocephalic, Atraumatic Eyes: Conjunctiva not pale ENT: Moist mucous membranes Neck: Supple, Nontender, No lymphadenopathy Cardiovascular: Regular rate, Regular rhythm Respiratory: No distress, CTA bilaterally Abdomen: Soft, Nontender, Nondistended. site is clean dry and intact. No signs of infection. Back: There is midline tenderness at L3-L4 level, I cannot appreciate any puncture wounds, skin is normal color without erythema or calor. No crepitus. There is some slight left-sided CVA tenderness also. Extremities: Nontender, No edema Skin: Normal color, No rash Neurological: Alert, Normal Strength, Normal Sensation Psychological: Normal affect Const Vital Signs: 11/30/21 20:39 11/30/21 21:24 11/30/21 22:29 Temperature 100.7 F H Temperature Source Oral Pulse Rate 117 H 84 Respiratory Rate 25 H 16 Respiratory Effort Normal Respiratory Pattern Normal Blood Pressure 130/60 H 112/65 Blood Pressure Mean 83 80 Pulse Ox 97 97 Oxygen Delivery Method Room Air Room Air MDM MDM MDM Narrative Medical decision making narrative: Patient's MRI is unremarkable as of now I cannot find the source of her pain I went back to reevaluate her she has no abdominal pain however I cannot find another source. Blood cultures are pending I will do a pelvis ultrasound to look for retained products or endometritis but otherwise if this is negative she will can be discharged with outpatient follow- up. If it is positive the oncoming ED physician care for the patient and contact OB. Lab Data Labs: Laboratory Results - last 24 hr 11/30/21 11/30/21 11/30/21 21:05 21:05 21:05 WBC 6.7 RBC 3.67 L Hgb 10.9 L Hct 33.3 L MCV 90.7 MCH 29.7 MCHC 32.7 RDW Std Deviation 43.0 RDW Coeff of Nicol 12.9 Plt Count 159 MPV 9.4 Immature Gran % (Auto) 0.500 Neut % (Auto) 80.2 H Lymph % (Auto) 9.3 L Nobles % (Auto) 9.5 Eos % (Auto) 0.3 Baso % (Auto) 0.2 Absolute Neuts (auto) 5.4 Absolute Lymphs (auto) 0.62 L Nucleated RBC % 0 PT 14.7 INR 1.2 Sodium 137 Potassium 3.9 Chloride 106 Carbon Dioxide 21.0 Anion Gap 10 BUN 15 Creatinine 0.96 Estim Creat Clear Calc 80.95 Est GFR (MDRD) Af Amer 88 Est GFR (MDRD) Non-Af 73 BUN/Creatinine Ratio 15.6 Glucose 108 H Lactic Acid Calcium 8.7 Total Bilirubin 0.30 AST 12 L ALT 19 Alkaline Phosphatase 78 Total Protein 7.0 Albumin 2.8 L Globulin 4.2 Albumin/Globulin Ratio 0.7 L 11/30/21 21:05 WBC RBC Hgb Hct MCV MCH MCHC RDW Std Deviation RDW Coeff of Nicol Plt Count MPV Immature Gran % (Auto) Neut % (Auto) Lymph % (Auto) Nobles % (Auto) Eos % (Auto) Baso % (Auto) Absolute Neuts (auto) Absolute Lymphs (auto) Nucleated RBC % PT INR Sodium Potassium Chloride Carbon Dioxide Anion Gap BUN Creatinine Estim Creat Clear Calc Est GFR (MDRD) Af Amer Est GFR (MDRD) Non-Af BUN/Creatinine Ratio Glucose Lactic Acid 0.4 Calcium Total Bilirubin AST ALT Alkaline Phosphatase Total Protein Albumin Globulin Albumin/Globulin Ratio Radiography Diagnostic Testing: Clinical Impression(s) from Imaging Studies Lumbar Spine MRI 11/30/21 20:50 IMPRESSION: Normal appearance of the thecal sac evidence of epidural abscess, hematoma or arachnoiditis. 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 L5-S1, right-sided, posterior broad-based disc herniation touches without impinging descending S1 nerve root. No areas of significant central spinal canal or neural foraminal narrowing. Electronically Signed: Last Agarwal DO at 23:12 EDT , Discharge Plan Triage Chief Complaint: Flank Pain ED Provider: Clarke Alvarez Dx/Rx/DC Orders Clinical Impression: Fever, Back pain Instructions: ED FUO Adult, ED Fever Control (Adult) Prescriptions: No Action 1 mg Tablet 1 tab PO DAILY RF: 0 ibuprofen [ibuprofen] 600 MG tablet 600 mg PO Q6H PRN (Reason: Pain) 15 Days Qty: 60 RF: 1 Primary Care Provider: Nicci Costello Referrals: Nicci Costello MD [Primary Care Provider] - 2 Days Disposition Disposition: Home, Self Care
[2021-11-30 21:39] LABS: ALB/GLOB Ratio 0.7 RATIO (0.9-2.4); AST(SGOT) 12 U/L (15-37); Alanine Aminotransfer ALT/SGPT 19 U/L (13-56); Albumin, Serum 2.8 g/dL (3.2-5.0); Alkaline Phosphatase 78 U/L (45-117); Anion Gap 10 (5-15); BUN 15 mg/dL (7-18); BUN/Creat Ratio 15.6 RATIO (10-20); Calcium,Total 8.7 mg/dL (8.5-10.1); Chloride 106 mmol/L (98-107); Creatinine, Serum 0.96 mg/dL (0.55-1.02); EST Glomerular Filtration Rate 73 mL/min (>60); Est Glom Filt Rate - Afr Amer 88 mL/min (>60); Estimated Creatinine Clearance 80.95 ml/min; Globulin 4.2 g/dL (2.2-4.2); Glucose 108 mg/dL (74-106); Potassium 3.9 mmol/L (3.5-5.1); Sodium Level 137 mmol/L (136-145)
[2021-11-30 21:44] LABS: International Normalized Ratio 1.2; Prothrombin Time (Protime)PT. 14.7 SECONDS (11.7-14.9)
[2021-11-30 21:52] LABS: Lactic Acid 0.4 mmol/L (0.4-1.9)
[2021-11-30 22:29] VITALS: BP 112/65; PULSE 84; RESP 16; O2SAT 97
--- NOTE | 2021-11-30 22:35 | RAD_ITS ---
INDICATION: fever EXAMINATION/TECHNIQUE: X-RAY - XR Chest 1 View COMPARISON: None. FINDINGS: LINES/DEVICES: None. LUNGS: Symmetric normal lung volumes. No airspace opacity or abnormal interstitial pattern. No nodule or mass. No pleural effusion or pneumothorax. MEDIASTINUM AND CARDIOVASCULAR STRUCTURES: Normal size and contour of the cardiomediastinal silhouette. No evidence of pulmonary vascular congestion. BONES AND SOFT TISSUES: No fracture or focal osseous lesion. RAD/Chest 1 View (Portable) IMPRESSION: 1. No radiographic evidence of acute cardiopulmonary disease. Electronically Signed: Last Agarwal DO at 23:35 EDT ,
[2021-11-30 23:08] LABS: Mucous, Urine 0 SEEN /hpf (<or=2+); Squamous Epithelial Cells - UA 0 SEEN /hpf (5-10)
--- NOTE | 2021-11-30 23:19 | US_ITS ---
EXAM: US PELVIS TRANSABDOMINAL, COMPLETE CLINICAL INDICATION: post fever TECHNIQUE: Transabdominal pelvic ultrasound was performed with grayscale and color Doppler imaging. This report was created using [employer] report [employer] technology. COMPARISON: None. FINDINGS: UTERUS/CERVIX: Unremarkable. Anteverted. There is no uterine mass. The uterus measures 9.3 x 7.1 x 5.3 cm. The endometrial stripe measures 0.7 cm in thickness. RIGHT OVARY: Unremarkable. Blood flow is present in the right ovary. The right ovary measures 2.9 x 2.9 x 1.9 cm. LEFT OVARY: Status post left oophorectomy. FREE FLUID: None. BLADDER: Unremarkable as visualized. Wall is normal thickness for degree of distention. US/Pelvic (Non ) IMPRESSION: No acute findings in the pelvis. Status post left oophorectomy. Electronically Signed: Last Barber MD at 0:20 EDT ,
[2021-11-30 23:22] LABS: Color, Urine Straw (Yellow); Glucose, Dipstick Normal (Normal); Ketone-Dipstick 50 mg/dl (Negative); Leukocyte Esterase-Dipstick 500 /ul (Negative); Nitrite-Dipstick Negative (Negative); Occult Blood-Urine 250 /ul (Negative); Protein-Dipstick 15 mg/dl (Negative); Specific Gravity, Urine 1.005 (1.002-1.030); Urine Bilirubin Dipstick Negative (Negative); Urine Clarity Clear (Clear); Urine Urobilinogen Normal (Normal); Urine pH 6.5 (5.0 - 8.0)
[2021-11-30 23:35] LABS: Red Blood Cells-Urine 10-25 SEEN /hpf (0-5); White Blood Cells 10-25 SEEN /hpf (0-5)
[2021-11-30 23:36] LABS: Bacteria 1+ /hpf (None Seen)
[2021-12-01 00:07] VITALS: BP 114/67; PULSE 84; RESP 16; O2SAT 94
[2021-12-01] MEDS: Ceftriaxone 1 GM/50 ML BAG IV (00:11)
== END 2021-12-01 00:56 | disposition home or self-care (01) ==
PROVIDERS: Emergency Provider Emergency Medicine; PCP Family Medicine; Visit Provider Emergency Medicine
DX: N39.0 Urinary tract infection, site not specified (principal); Z86.14 Personal history of Methicillin resistant Staphylococcus aureus infection; Z87.442 Personal history of urinary calculi
CPT/HCPCS: 36415; 71045; 72158; 76856; 80053; 81001; 83605; 85025; 85610; 87040; 87428; 96361; 96365; 99284; A9575; J7030; A4216

== ENCOUNTER → 2022-02-02 | Outpatient (CLI) | payer OTHER, SELFPAY ==
[2022-02-02 10:56] LABS: Bacteria 0 SEEN /hpf (None Seen); Mucous, Urine 0 SEEN /hpf (<or=2+); Red Blood Cells-Urine 0 SEEN /hpf (0-5); Squamous Epithelial Cells - UA 0 SEEN /hpf (5-10)
[2022-02-02 11:05] LABS: Color, Urine Yellow (Yellow); Glucose, Dipstick Normal (Normal); Ketone-Dipstick Negative (Negative); Leukocyte Esterase-Dipstick 100 /ul (Negative); Nitrite-Dipstick Negative (Negative); Occult Blood-Urine 25 /ul (Negative); Protein-Dipstick 15 mg/dl (Negative); Urine Bilirubin Dipstick Negative (Negative); Urine Clarity Clear (Clear); Urine Urobilinogen Normal (Normal)
[2022-02-02 11:12] LABS: White Blood Cells 5-10 SEEN /hpf (0-5)
[2022-02-02 11:13] LABS: Renal Epithelial Cells 5-10 SEEN /hpf (0-5)
== END | disposition home or self-care (01) ==
PROVIDERS: PCP Family Medicine; Visit Provider Physician Assistant
DX: R30.9 Painful micturition, unspecified (principal)
CPT/HCPCS: 81001; 87086; 87088; 87186

== ENCOUNTER → 2022-03-01 | Outpatient (CLI) | payer OTHER, SELFPAY ==
[2022-03-01 18:17] LABS: Calcium,Total 9.2 mg/dL (8.5-10.1); Phosphorus 3.5 mg/dL (2.5-4.9)
== END | disposition home or self-care (01) ==
LOC: MTLAB 15:28
PROVIDERS: PCP Family Medicine; Referring Provider Urology; Visit Provider Urology
DX: N39.0 Urinary tract infection, site not specified (principal)
CPT/HCPCS: 36415; 82310; 84100

== ENCOUNTER → 2022-09-18 | Outpatient (CLI) | payer OTHER, SELFPAY ==
--- NOTE | 2022-09-18 14:10 | RAD_ITS ---
STUDY: X-RAY - ABDOMEN/PELVIS REASON FOR EXAM: Female, 31 years old. Kidney stones. TECHNIQUE: Single AP view of the abdomen / pelvis on 2 images. COMPARISON: None. FINDINGS: Normal visualized lung bases. Normal bowel gas pattern. Moderate amount of feces in the colon. There is no demonstrated free abdominal air. 5 mm in diameter calcification projected over the lower pole of the left kidney. Normal soft tissue structures. Normal visualized osseous structures. RAD/Abdomen Single View IMPRESSION: 5 mm in diameter calcification projected over the lower pole of the left kidney. Electronically Signed: Mane Cevallos, at 15:40 EDT ,
== END | disposition home or self-care (01) ==
LOC: MTRAD 14:06
PROVIDERS: PCP Family Medicine; Referring Provider Urology; Visit Provider Urology
DX: N20.0 Calculus of kidney (principal)
CPT/HCPCS: 74018

== ENCOUNTER 2022-10-19 10:18 | Day surgery (SDC) | payer OTHER, SELFPAY ==
[2022-10-19 10:35] LABS: Internal QC Validated? YES +Cl - CLEAR BKGD
[2022-10-19 10:38] LABS: Pregnancy, Urine Negative Negative
[2022-10-19 10:41] VITALS: BP 113/68; PULSE 56; RESP 16; TEMP 36.2; BMI 29.2
[2022-10-19] MEDS: Lactated Ringers 1,000 ML 15 ML IV (10:45)
[2022-10-19] MEDS: Cefazolin 2 GM in 0.9% Normal Saline 100 ML IV (11:16)
[2022-10-19 11:59] VITALS: BP 113/68; BP 134/81; PULSE 88; RESP 18; TEMP 36.3; O2SAT 99
[2022-10-19 12:15] VITALS: BP 113/68; BP 125/75; PULSE 67; RESP 16; O2SAT 100
--- NOTE | 2022-10-19 12:19 | DCINST_ITS ---
Discharge Instructions Diet Discharge Diet: No restrictions Activity Discharge Activity: Return to Normal Activity May resume sexual activity in: No Restrictions Dressing / Incision Call your doctor if you observe: Fever of 101 or Higher, Inability to urinate and Inability to have a bowel movement Follow Up Care Please Follow Up With: Shira Domingo MD When: call office for appt, KUB prior to appt Test Results: Test results from this visit will be discussed in further detail at your follow- up appointment, if applicable. Discharge Plan Admission Attending Provider: Shira Domingo Primary Care Provider: Nicci Costello Discharge Orders/Prescriptions Prescriptions: New oxycodone-acetaminophen [Percocet] 5-325 mg tablet 1 tab PO Q8H PRN (Reason: pain) 3 Days Qty: 10 0RF cephalexin [cephalexin] 500 mg capsule 500 mg PO Q12 3 Days Qty: 6 0RF Continued norgestimate-ethinyl estradiol [Sprintec (28)] 0.25-35 mg-mcg Tablet 1 tab PO DAILY Referrals / Follow Up: Nicci Costello MD [Primary Care Provider] - Disposition Disposition (needs filled in before D/C Order can be placed): Home, Self Care
--- NOTE | 2022-10-19 12:22 | PCM.OPRPT ---
Report of Operation Date of Procedure: 10/19/22 Pre-Operative Diagnosis: left renal stones Post-Operative Diagnosis: same Surgery/Procedure Performed:: left renal extracorporeal shockwave lithotripsy Surgeon: Shira Domingo Type of Anesthesia: General Description of Procedure: The patient is a 32-year-old female noted to have bilateral renal stones, the left one being the largest and easily visualized on KUB. She now presents for definitive surgical intervention with shockwave lithotripsy. Informed consent was obtained. The patient was taken to the operating room and placed in a supine position on the lithotripsy table. Anesthesia monitored the head, neck, airway, IV access and vital signs throughout the case. Once anesthesia was appropriately administered, the patient was aligned and the stone was easily visualized. A total of 2300 shocks were applied to the stone and it was no longer visible. The patient was then awakened and taken to the recovery room in good condition. There were no complications during this procedure. Grafts/Implants Used: None Complications None Admit VTE Documentation VTE Present on Admission: Yes VTE Mechan Device Prophylaxis: SCD's VTE Pharm Prophylaxis ordered?: No Reason prophylaxis not ordered:: Treatment Not Indicated
[2022-10-19 12:30] VITALS: BP 113/68; BP 116/73; PULSE 55; RESP 16; O2SAT 100
[2022-10-19 12:38] VITALS: BP 113/68; BP 119/71; PULSE 57; RESP 16; TEMP 36.3; O2SAT 100
[2022-10-19] MEDS: oxyCODONE 5 MG Tablet PO (13:01)
[2022-10-19] MEDS: Acetaminophen 325 MG Tablet PO (13:01)
[2022-10-19 13:48] VITALS: BP 113/68; BP 114/58; PULSE 68; RESP 16; TEMP 37; O2SAT 100
== END 2022-10-19 13:56 | disposition home or self-care (01) ==
LOC: SDC 10:18 → AC 10:19
PROVIDERS: Anesthesiology; PCP Family Medicine; Referring Provider Urology; Visit Provider Urology
PROC: (CPT 50590; principal; 2022-10-19 11:40)
DX: N20.0 Calculus of kidney (principal); Z98.891 History of uterine scar from previous surgery
CPT/HCPCS: 50590; 00873; 81025; 87077; 87086; 87088; 87186; J7120; J2405

== ENCOUNTER → 2022-11-10 | Outpatient (CLI) | payer OTHER, SELFPAY ==
--- NOTE | 2022-11-10 15:09 | RAD_ITS ---
STUDY: X-RAY - ABDOMEN/PELVIS REASON FOR EXAM: Female, 32 years old. KUB- KIDNEY CALC TECHNIQUE: Single AP view of the abdomen / pelvis. COMPARISON: Comparison is made with prior study September 18, 2022. FINDINGS: There is an abundance of fecal material throughout the colon. The visualized liver, spleen and kidneys are grossly normal in size and morphology. There are calcified phleboliths in the pelvis. Normal visualized osseous structures. RAD/Abdomen Single View IMPRESSION: Normal x-ray examination of the abdomen and pelvis. Electronically Signed: Panfilo Rodriguez MD at 15:26 EDT ,
== END | disposition home or self-care (01) ==
LOC: MTRAD 15:08
PROVIDERS: PCP Family Medicine; Referring Provider Urology; Visit Provider Urology
DX: N20.0 Calculus of kidney (principal)
CPT/HCPCS: 74018

== ENCOUNTER → 2022-12-06 | Outpatient (CLI) | payer OTHER, SELFPAY ==
--- NOTE | 2022-12-06 14:25 | BI_ITS ---
MAMMOGRAPHY - BILATERAL DIAGNOSTIC REASON FOR EXAM: Female, 32 years old. Palpable lump in the lower outer quadrant of the right breast. PERTINENT HISTORY: Non-contributory. TECHNIQUE: Digital bilateral breast kevin (3D mammographic acquisition) in the CC and MLO projections. 2-D mediolateral oblique (MLO) and craniocaudad (CC) views of both breasts were obtained. CAD: Full Field Digital Mammography with Computer Added Detection was performed. COMPARISON: None. Baseline examination. FINDINGS: Breast Composition: The breasts are extremely dense, which lowers the sensitivity of mammography. There are no dominant masses or suspicious calcifications. No other significant abnormalities are identified. BI/DIAG MAMM W/CAD, BILAT IMPRESSION: Negative diagnostic mammogram. With the patient''s history of palpable lump in the right breast, correlation with ultrasound is recommended. ASSESSMENT CATEGORY: BIRADS Category 0: Incomplete. Need additional imaging evaluation. A letter regarding these results will be sent to the patient by the facility within 30 days. Approximately 10% of breast cancers are not detected by mammography. A normal mammogram should not delay biopsy of a clinically suspicious abnormality. Electronically Signed: Panfilo Rodriguez MD at 15:20 EDT ,
--- NOTE | 2022-12-06 14:25 | US_ITS ---
STUDY: ULTRASOUND BREAST - RIGHT REASON FOR EXAM: Female, 32 years old. Right breast pain. TECHNIQUE: Axial and longitudinal images of the RIGHT breast were performed with a high resolution ultrasound transducer. # OF IMAGES: 65 COMPARISON: Comparison is made with prior mammogram dated December 06, 2022. FINDINGS: RIGHT Breast: The lateral half of the right breast was examined with ultrasound. Dilated ducts are seen at the 6:00 position in the breast. US/Breast Limited Unilateral IMPRESSION: Dilated ducts at the 6:00 position of the breast. ASSESSMENT CATEGORY: BIRADS Category 2: Benign. A letter regarding these results will be sent to the patient by the facility within 30 days. Electronically Signed: Panfilo Rodriguez MD at 12:41 EDT ,
== END | disposition home or self-care (01) ==
LOC: OPBI 14:22
PROVIDERS: PCP Family Medicine; Referring Provider Family Medicine; Visit Provider Family Medicine
DX: N64.4 Mastodynia (principal)
CPT/HCPCS: 76642; 77062; 77066; G0279

== ENCOUNTER → 2023-04-02 | Outpatient (CLI) | payer OTHER, SELFPAY | END | disposition home or self-care (01) | LOC: LABSPEC 15:12 | PROVIDERS: PCP Family Medicine; Visit Provider Nurse Practitioner Family | DX: R39.15 Urgency of urination (principal) | CPT/HCPCS: 87086; 87088 ==

== ENCOUNTER → 2023-12-10 | Outpatient (CLI) | payer OTHER, SELFPAY ==
--- NOTE | 2023-12-10 14:18 | RAD_ITS ---
STUDY: X-RAY - ABDOMEN/PELVIS REASON FOR EXAM: Female, 33 years old. KIDNEY STONES TECHNIQUE: Two AP supine views of the abdomen and pelvis. COMPARISON: None. FINDINGS: Normal visualized lung bases. There is an abundance of fecal material throughout the colon. There is no demonstrated free abdominal air. The visualized liver, spleen and kidneys are grossly normal in size and morphology. Normal soft tissue structures. Normal visualized osseous structures. RAD/Abdomen Single View IMPRESSION: No acute findings, retained stool Electronically Signed: Ben Flores MD at 21:40 EDT ,
== END | disposition home or self-care (01) ==
LOC: RAD 14:05
PROVIDERS: PCP Family Medicine; Referring Provider Urology; Visit Provider Urology
DX: N20.0 Calculus of kidney (principal)
CPT/HCPCS: 74018

== ENCOUNTER → 2023-12-27 | Outpatient (CLI) | payer OTHER, SELFPAY ==
[2023-12-28 08:12] LABS: HCG BETA-SUBUNIT QUANT. 10 mIU/mL (.)
== END | disposition home or self-care (01) ==
LOC: LAB 06:14
PROVIDERS: PCP Family Medicine; Referring Provider Obstetrics & Gynecology Reproductive Endocrinology; Visit Provider Obstetrics & Gynecology Reproductive Endocrinology
DX: Z13.29 Encounter for screening for other suspected endocrine disorder (principal)
CPT/HCPCS: 36415; 84702

== ENCOUNTER → 2024-06-26 | Outpatient (CLI) | payer OTHER, SELFPAY ==
--- NOTE | 2024-06-26 09:52 | VDLE_ITS ---
Reason For Study: Venous insufficiency RIGHT LEFT CFV is compressible, spontaneous, phasic, CFV is compressible, phasic, and INCOMPETENT competent and demonstrates normal for greater than 1.0 second. augmentation. FV is compressible, spontaneous, phasic, FV is compressible, spontaneous, phasic, competent and demonstrates normal competent and demonstrates normal augmentation. augmentation. POP V is compressible, spontaneous, phasic, POP V is compressible, spontaneous, phasic, competent and demonstrates normal competent and demonstrates normal augmentation. augmentation. T/P Trunk is compressible. T/P Trunk is compressible. PTV is compressible. PTV is compressible. LT PerV is compressible. RT PerV is compressible. SFJ is competent and measures 0.62 cm. SFJ is competent and measures 0.57 cm. GSV proximal thigh measures 0.29 x 0.30 cm. GSV proximal thigh measures 0.26 x 0.22 cm. GSV above knee is competent. GSV at knee measures 0.23 x 0.23 cm. GSV at knee measures 0.31 x 0.30 cm. GSV INCOMPETENT throughout for greater than GSV below knee is INCOMPETENT for greater 0.5 seconds. than 0.5 seconds. SSV mid calf is competent and measures 0.15 x ASV proximal calf is INCOMPETENT for greater 0.16 cm. than 0.5 seconds and measures 0.14 x 0.17 cm. Procedure SSV at junction is competent and measures This is a venous duplex using B-mode, color 0.25 cm. flow and spectral Doppler. Exam performed in department. Patient was scanned in reverse Trendelenburg position during reflux assessment. VL/Venous Duplex US - Sachin Extrem Interpretation Summary Bilateral no DVTor SVT. Right GSv reflux throughout. Left calf GSV and ASV refl ux. Ordering Physician: Francisco Lainez Referring Physician: Nicci Costello M.D. Performed By: Sarah Maradiaga RVT
== END | disposition home or self-care (01) ==
LOC: CVS 09:51
PROVIDERS: PCP Family Medicine; Referring Provider Surgery Vascular Surgery; Visit Provider Surgery Vascular Surgery
DX: I87.2 Venous insufficiency (chronic) (peripheral) (principal); I83.893 Varicose veins of bilateral lower extremities with other complications
CPT/HCPCS: 93970

== ENCOUNTER → 2025-03-19 | Outpatient (CLI) | payer OTHER, SELFPAY ==
--- NOTE | 2025-03-19 13:44 | CT_ITS ---
PROCEDURE: ABDOMEN/PELVIS WITHOUT CONT 03/19/2025 REASON FOR EXAM: STONES, BACK PAIN TECHNIQUE: Procedure Code: CTABDPEL Modality: CT Procedure: ABDOMEN/PELVIS WITHOUT CONT Noncontrast technique limits evaluation of the abdominal and pelvic viscera. Coronal and Sagittal reconstruction series were provided. One or more dose reduction techniques were used (e.g., Automated exposure control, adjustment of the mA and/or kV according to patient size, use of iterative reconstruction technique). RADIATION DOSE SUMMARY: CTDlvol: 8.1 mGy DLP: 422 mGycm COMPARISON: None FINDINGS: Lung bases: Mild bibasilar atelectasis. Liver: Normal size. No obvious mass. Gallbladder: Unremarkable Spleen: Normal size. Pancreas: Normal size. No surrounding inflammation. Adrenals: Unremarkable Kidneys: There is small nonobstructing right lower pole renal calculus measuring 3 mm. No right hydronephrosis. Small punctate 2 mm left midpole renal calculus. Mild left hydronephrosis. There is 5 mm calculus at left UVJ. Bladder: Bladder is distended with urine. Reproductive Organs: Unremarkable Bowel: Colonic diverticulosis without evidence of diverticulitis. Moderate stool burden. Appendix: The appendix is not identified. There is no inflammatory process identified in the right lower quadrant to suggest appendicitis. Lymph nodes: No suspicious lymph node enlargement. Vasculature: The abdominal aorta and IVC contours are normal. Noncontrast technique limits evaluation. Peritoneum / Retroperitoneum: Unremarkable Bones: Unremarkable CT/Abdomen/Pelvis without Cont IMPRESSION: There is small punctate 2 mm left midpole renal calculus with mild left hydrone phrosis. Additionally there is 5 mm calculus at left UVJ. Small nonobstructing right lower pole renal calculus measuring 3 mm. Reading Location: [id number]
== END | disposition home or self-care (01) ==
LOC: CT 13:44
PROVIDERS: PCP Family Medicine; Referring Provider Urology; Visit Provider Urology
DX: N20.0 Calculus of kidney (principal); R10.9 Unspecified abdominal pain
CPT/HCPCS: 74176

== ENCOUNTER → 2025-03-30 | Outpatient (CLI) | payer OTHER, SELFPAY ==
--- NOTE | 2025-03-30 13:50 | VDLE_ITS ---
Reason For Study Reason For Study: Vein Compression Syndrome Procedure LEFT This is a venous duplex using B-mode, color flow and CFV is compressible, spontaneous, phasic, competent, spectral Doppler. and demonstrates normal augmentation. Exam performed in department. FV is compressible, spontaneous, phasic, competent Patient was scanned in reverse Trendelenburg position and demonstrates normal augmentation. during reflux assessment. POP V is compressible, spontaneous, phasic, competent and demonstrates normal augmentation. T/P Trunk is compressible. PTV is compressible. LT PerV is compressible. SFJ is competent and measures 0.72 cm. GSV proximal thigh measures 0.40x0.52 cm. GSV above knee is competent. GSV at knee measures 0.32x0.39 cm. GSV below knee is INCOMPETENT for greater than 0.5 seconds. ASV mid calf is INCOMPETENT for greater than 0.5 seconds and measures 0.22x0.19 cm. SSV mid calf is competent and measures 0.21x0.24 cm. VL/Venous Duplex US, Unilateral Interpretation Summary No DVT left leg. Left calf GSV and ASV with reflux. Ordering Physician: Francisco Lainez Referring Physician: Clarke Swartz MD Performed By: Christine Jordan RVT
== END | disposition home or self-care (01) ==
LOC: CVS 13:50
PROVIDERS: PCP Family Medicine; Referring Provider Surgery Vascular Surgery; Visit Provider Surgery Vascular Surgery
DX: I87.1 Compression of vein (principal); I87.2 Venous insufficiency (chronic) (peripheral); I83.892 Varicose veins of left lower extremity with other complications
CPT/HCPCS: 93971

== ENCOUNTER → 2025-05-21 | Outpatient (CLI) | payer OTHER, SELFPAY ==
--- NOTE | 2025-05-21 12:23 | CT_ITS ---
PROCEDURE: ABDOMEN/PELVIS WITHOUT CONT 05/21/2025 REASON FOR EXAM: URETERAL STONE TECHNIQUE: Procedure Code: CTABDPEL Modality: CT Procedure: ABDOMEN/PELVIS WITHOUT CONT Noncontrast technique limits evaluation of the abdominal and pelvic viscera. Coronal and Sagittal reconstruction series were provided. One or more dose reduction techniques were used (e.g., Automated exposure control, adjustment of the mA and/or kV according to patient size, use of iterative reconstruction technique). COMPARISON: Radiographs dated 12/10/2023. FINDINGS: A couple of punctate hyperdensities are noted within the bilateral renal pelvises (series 2, images 61 and 53), concerning for small nonobstructing stones. No hydronephrosis nor hydroureter. Multiple small calcifications within the lower pelvis likely represent phleboliths. Moderate amount of stool throughout the colon. The appendix is visualized and normal-appearing. No evidence of a bowel obstruction. No other acute abdominal or pelvic process is identified within this noncontrast CT. The visualized lung bases are clear. No acute osseous abnormality. CT/Abdomen/Pelvis without Cont IMPRESSION: A couple of punctate hyperdensities within the bilateral renal pelvises concern ing for small nonobstructing stones. Reading Location: [id number]
== END | disposition home or self-care (01) ==
LOC: CT 12:23
PROVIDERS: PCP Family Medicine; Referring Provider Urology; Visit Provider Urology
DX: N20.1 Calculus of ureter (principal)
CPT/HCPCS: 74176

== ENCOUNTER → 2025-06-24 | Outpatient (CLI) | payer OTHER, SELFPAY ==
--- OUTSIDE RECORDS SUMMARY | 2025-06-24 07:53 | XMS RPT_ITS | CCD ---
Author Organization [facility] Care Team Providers Care Hotel Assistant Manager Name Role Phone Nicci Costello Primary Care Provider PRAVIN JORDAN, DR HUMPHREY Primary Care Physician ETTA LAINEZ Attending Unavailable PRAVIN JORDAN, DR HUMPHREY Primary Care Unavailable PRAVIN JORDAN, DR HUMPHREY Primary Care Unavailable ETTA LAINEZ Attending Unavailable Dr. Nicci Costello MD Primary Care Provider Chayo JORDAN, Dr. Silva Attending Provider Dr. Clarke Chávez MD Primary Care Provider [phone] Assessment, Health Risk Attending Provider Unava ilable Assessment, Health Risk Referring Provider Unava ilable Kyler JORDAN, Dr. Mir Referring Provider Pravin JORDAN, Dr. Nicci Babcock Primary Care Physician [phone] Dr. Shira Domingo MD Attending Physician Kyler JORDAN, Dr. Mir Primary Care Physician [phone] Assessment, Health Risk Attending Physician Unav ailable Chayo JORDAN, Dr. Silva Referring Provider Dr. Etta Lainez MD Attending Physician Dr. Etta Lainez MD Referring Provider Etta Lainez Attending Unavailable Etta Lainez Referring Unavailable Clarke Chávez Primary Care Unavailable Clarke Chávez Referring Unavailable Shira Domingo Attending Unavailable Clarke Chávez Primary Care Unavailable Etta Lainez Attending Unavailable Etta Lainez Referring Unavailable Nicci Costello Primary Care Unavailable Assessment, Health Risk Attending Unavaila ble Assessment, Health Risk Referring Unavaila ble Clarke Chávez Primary Care Unavailable Shira Domingo Attending Unavailable Shira Domingo Referring Unavailable Clarke Chávez Primary Care Unavailable Etta Lainez Attending Unavailable Etta Lainez Referring Unavailable Nicci Costello Primary Care Unavailable NICCI COSTELLO Primary Care Unavailable CYNDIE PETTY Attending Unavail able Medications Current Medications Medication Drug Class(es) Dates Sig (Normalized) Sig (Original) acetaminophen 325 mg / HYDROcodone bitartrate 5 mg oral tablet (2 sources) Opioid Agonist Start: 08-22-2021 take 1 tablet by mouth every six hours as needed Hydrocodone-Acet aminophen Active 1 TABLET PO EVERY 6 HOURS NEEDED 10 3 August 22, 2021 9:06pm calcium ascorbate 500 mg oral tablet (3 sources) Start: 03-17-2025 take 1 tablet by mouth once daily cefdinir 300 mg oral capsule (4 sources) Cephalosporin Antibacterial Start: 02-01-2022 take 300 mg by mouth twice daily Cefdinir Active 300 MG PO TWICE A DAY February 01, 2022 12:00am Start: 11-30-2021 take 300 mg by mouth twice nori ly Cefdinir Active 300 MG PO TWICE A DAY November 30, 2021 11:47pm Cranberry (4 sources) Non-Standardized Food Allergenic Extract, Non-Standardized Plant Allergenic Extract Start: 03-17-2025 take 1 capsule by mouth twice daily at mealtime Start: 03-17-2025 take 1 capsule by [facility] twice daily at mealtime Cranberry 500 mg capsule Active 500 mg PO TWICE A DAY March 17, 2025 12:00am administer with meals CRANBERRY ibuprofen 600 mg oral tablet (14 sources) Nonsteroidal Anti-inflammatory Drug Start: 11-09-2021 take 600 mg by mouth every six hours Ibuprofen Active 600 MG PO EVERY 6 HOURS 60 15 November 09, 2021 7:40am Start: 03-15-2020 End: 01-13-2021 take 1 tablet by mouth every six hours Ibuprofen 600 MG tablet Discontinued 600 mg PO EVERY 6 HOURS 30 0 March 15, 2020 12:00am January 13, 2021 1:08pm lactobacillus acidophilus [id number] unt oral capsule (2 sources) Start: 03-17-2025 Lactobacillus Acidophilus 10 billion cell capsule (1 source) Start: 03-17-2025 Lactobacillus Acidophilus 10 billion cell capsule Active 65022 NMA PO ONCE March 17, 2025 12:00am Multivitamin tablet (3 sources) Start: 03-17-2025 Start: 03-17-2025 Multivitamin t ablet Active 1 {tbl} PO EVERY MORNING March 17, 2025 12:00am ondansetron 4 mg disintegrating oral tablet (4 sources) Serotonin-3 Receptor Antagonist Start: 08-22-2021 take 4 mg by mouth every six hours Ondansetron Active 4 MG PO EVERY 6 HOURS October 25, 2021 9:25pm phenazopyridine hydrochloride 200 mg oral tablet (3 sources) Start: 03-17-2025 take 1 tablet by mouth three times daily Ayldwvza-Agy-Fc-Fa () 1 mg Tablet (6 sources) Start: 03-23-2021 take 1 tablet by mouth once daily Vthlfydo-Ysb-Xh-F a () 1 mg Tablet Active 1 TABLET PO DAILY March 23, 2021 2:00pm Start: 03-23-2021 take 1 tablet by tanvir th once daily Fsyjbwau-Meb-Wc-Fa () 1 mg Tablet Active 1 TABLET PO DAILY March 23, 2021 12:00am tamsulosin hydrochloride 0.4 mg oral capsule (2 sources) alpha-Adrenergic Piedad Start: 03-20-2025 take 1 capsule by mouth at bedtime Completed/Discontinued Medications Medication Drug Class(es) Dates Sig (Normalized) Sig (Original) acetaminophen 325 mg / oxyCODONE hydrochloride 5 mg oral tablet (16 sources) Opioid Agonist Start: 03-20-2025 End: 03-27-2025 Oxycodone-Acetamino phen (Percocet) 5-325 mg tablet Discontinued 1 {tbl} PO THREE TIMES A DAY as needed for pain 20 7 0 March 20, 2025 March 26, 2025 12:00am March 27, 2025 12:11am Calculus of kidney Calculus of kidney Start: 10-19-2022 End: 03-17-2025 Oxycodone-Acetaminophen (Per cocet) 5-325 mg tablet Discontinued 1 {tbl} PO Q8H as needed for pain 10 3 0 October 19, 2022 March 17, 2025 11:42am Calculus of left kidney Calculus of kidney Start: 01-15-2019 End: 01-26-2019 Oxycodone-Acetaminophen 1 TA BLET tablet Discontinued 1 - 2 {tbl} PO EVERY 4 HOURS NEEDED as needed for Pain 20 7 0 January 15, 2019 January 21, 2019 12:00am January 26, 2019 12:08am Cyst of left ovary Unspecified ovarian cyst, left side Start: 01-15-2019 End: 01-26-2019 take 1 tablet by mouth every four hours as needed Oxycodone-Acetaminophen Discontinued 1 - 2 TABLET PO EVERY 4 HOURS NEEDED 20 7 January 15, 2019 January 26, 2019 12:08am ascorbic acid 100 mg oral tablet (1 source) Vitamin C take 1 tablet by mouth once daily Ascorbic Acid (VITAMIN C) 100 mg tablet Take 100 mg by mouth once daily. 0 Active Comment on above: Take 100 mg by mouth once daily. aspirin 81 mg chewable tablet (10 sources) Platelet Aggregation Inhibitor, Nonsteroidal Anti-inflammatory Drug Start: 0 End: 0 take 1 tablet by mouth once daily Aspirin 81 MG tablet,chewable Discontinued 81 mg PO DAILY@0800 March 11, 2020 12:00am March 15, 2020 8:17am infertility cephalexin 500 mg oral capsule (4 sources) Cephalosporin Antibacterial Start: 3 End: 5 take 1 capsule by mouth every twelve hours Cephalexin 500 mg capsule Discontinued 500 mg PO EVERY 12 HOURS 6 3 0 October 19, 2022 12:00am March 17, 2025 11:42am post-operative Norgestimate-Ethiny l Estradiol (6 sources) Progestin, Estrogen Start: 3 End: 5 Norgestimate-Ethinyl Estradiol (Sprintec (28)) 0.25-35 mg-mcg Tablet Discontinued 1 {tbl} PO DAILY October 12, 2022 12:00am March 17, 2025 11:42am Start: 10-12-2022 take 1 tablet by tanvir once daily Norgestimate-Ethinyl Estradiol (Sprintec (28)) 0.25-35 mg-mcg Tablet Active 1 TABLET PO DAILY October 12, 2022 12:00am Start: 05-09-2022 End: 03-19-2023 take 1 tablet by mouth once daily norgestimate 0.25 mg-ethinyl estradiol 35 mcg (SPRINTEC) 0.25-35 mg-mcg per tablet Indications: General counseling for prescription of oral contraceptives Take 1 tablet by mouth once daily. 84 tablet 4 05/09/2022 03/19/2023 Discontinued Start: 05-09-2022 take 1 tablet by tanvir th once daily norgestimate 0.25 mg-ethinyl estradiol 35 mcg (SPRINTEC) 0.25-35 mg-mcg per tablet Indications: General counseling for prescription of oral contraceptives Take 1 tablet by mouth once daily. 84 tablet 4 05/09/2022 Active Comment on above: Take 1 tablet by tanvir th once daily. ferrous sulfate 325 mg oral tablet (10 sources) Start: 2019 End: 2019 take 1 tablet by mouth twice daily Ferrous Sulfate 325 MG tablet Discontinued 325 mg PO TWICE A DAY 60 30 0 March 15, 2020 12:00am April 13, 2020 12:00am April 14, 2020 12:03am L.acid/B.animalis,bifidum/ FOS (PROBIOTIC COMPLEX ORAL) (1 source) L.acid/B.animali s,bifidum /FOS (PROBIOTIC COMPLEX ORAL) Take by mouth. 0 Active Comment on above: Take by mouth. medroxyPROGESTERone acetate 10 mg oral tablet (10 sources) Progestin Start: 2017 End: 2017 take 1 tablet by mouth once daily Medroxyprogesterone 10 mg tablet Discontinued 10 mg PO daily 5 5 0 April 16, 2018 12:00am April 20, 2018 12:00am April 21, 2018 12:08am norethindrone 0.35 mg oral tablet (4 sources) Start: 2021 End: 2022 take 1 tablet by mouth once daily Norethindrone, Contraceptive, (ORTHO MICRONOR) 0.35 mg tablet Take 1 tablet by mouth once daily. 28 tablet 5 12/26/2021 03/19/2023 Discontinued Comment on above: Take 1 tablet by tanvir th once daily. Ygsgiulk-Xo-Let-Fe-FA ( VITAMIN) tab (13 sources) take 1 tablet by mouth once Jdohidtj-Tw-Rtc-Fe-FA ( VITAMIN) tab Take 1 tablet by mouth. 0 Active Comment on above: Take 1 tablet by tanvir th. Vit No.387-Kgjj-Fvpgf (7 sources) Start: 2019 End: 2020 Vit No.779-Wytk-Cotnb Discontinued 1 EACH PO DAILY March 11, 2020 9:15pm January 13, 2021 1:08pm Start: 03-11-2020 End: 01-13-2021 Vit No.086-Gbwl-Fsq ic Discontinued 1 EACH PO DAILY March 11, 2020 12:00am January 13, 2021 1:08pm Vit No.944-Uisf-Koysu 1 EACH tablet (3 sources) Start: 03-11-2020 End: 01-13-2021 take 1 tablet by mouth once daily Vit No.990-Merf-Hizqt 1 EACH tablet Discontinued 1 NMA PO DAILY March 11, 2020 12:00am January 13, 2021 1:08pm Problems Active Problems Problem Classification Problem Date Documented Date Episodic/Chronic Abdominal pain (20 sources) Flank pain; Translations: [Unspecified abdominal pain] 08-30-2021 Episodic Calculus of urinary tract (20 sources) History of calculus of kidney; Translations: [Personal history of urinary calculi] Onset: 04-01-2025 11-02-2021 Episodic Fever of unknown origin (7 sources) Fever; Translations: [Fever, unspecified] 12-09-2021 Episodic Fracture of upper limb (10 sources) Fracture distal phalanx of thumb; Translations: [Displaced fracture of distal phalanx of right thumb, initial encounter for closed fracture] 01-03-2019 Episodic Genitourinary symptoms and ill-defined conditions (4 sources) Urge incontinence of urine; Translations: [Urge incontinence] 03-17-2025 Chronic Immunizations and screening for infectious disease (1 source) Patient encounter status; Translations: [Encounter for screening for human papillomavirus (HPV)] 03-19-2023 Episodic Other complications of ; puerperium affecting management of mother (11 sources) Deliveries by ; Translations: [Delivery by section] Episodic Other complications of (11 sources) Abdominal pain in ; Translations: [Other specified related conditions, third trimester] Episodic Other complications of (3 sources) Supervision of resulting from assisted reproductive technology, unspecified trimester; Translations: [ resulting from assisted reproductive technology] 03-11-2020 Episodic Other diseases of bladder and urethra (4 sources) Disorder of bladder; Translations: [Other specified disorders of bladder] 03-17-2025 Chronic Other diseases of kidney and ureters (10 sources) Hydronephrosis; Translations: [Unspecified hydronephrosis] 08-30-2021 Episodic Other diseases of veins and lymphatics (2 sources) Compression of vein; Translations: [Compression of vein] Onset: 08-11-2024 Episodic Other and delivery including normal (20 sources) Normal ; Translations: [Encounter for supervision of other normal , third trimester] Episodic Other screening for suspected conditions (not mental disorders or infectious disease) (9 sources) Finding related to ; Translations: [Encounter for suspected problem with growth ruled out] Episodic Other upper respiratory infections (10 sources) Acute pharyngitis; Translations: [Acute pharyngitis, unspecified] 01-13-2021 Episodic Ovarian cyst (10 sources) Cyst of ovary; Translations: [Unspecified ovarian cyst, left side] 01-13-2019 Episodic Residual codes; unclassified (1 source) Gestation period, 34 weeks; Translations: [34 weeks gestation of ] Episodic Residual codes; unclassified (2 sources) Gestation period, 36 weeks; Translations: [36 weeks gestation of ] Episodic Residual codes; unclassified (1 source) Gestation period, 37 weeks; Translations: [37 weeks gestation of ] Episodic Residual codes; unclassified (10 sources) Gestation period, 41 weeks; Translations: [41 weeks gestation of ] 03-11-2020 Episodic Residual codes; unclassified (1 source) Gestation period, 38 weeks; Translations: [38 weeks gestation of ] Episodic Residual codes; unclassified (1 source) Gestation period, 39 weeks; Translations: [39 weeks gestation of ] Episodic Residual codes; unclassified (1 source) 39 weeks gestation of ; Translations: [ state, incidental] Episodic Residual codes; unclassified (3 sources) History of uterine scar from previous surgery; Translations: [Other postprocedural status] Episodic Spondylosis; intervertebral disc disorders; other back problems (7 sources) Backache; Translations: [Dorsalgia, unspecified] 12-09-2021 Episodic Urinary tract infections (16 sources) Urinary tract infectious disease; Translations: [Urinary tract infection, site not specified] 12-09-2021 Episodic Viral infection (10 sources) Herpes zoster; Translations: [Zoster without complications] 01-13-2021 Episodic Past or Other Problems Problem Classification Problem Date Documented Date Episodic/Chronic Other complications of (13 sources) Finding of pattern of ; Translations: [Supervision of other high risk pregnancies, unspecified trimester] Onset: 03-21-2021 03-21-2021 Episodic Other diseases of veins and lymphatics (1 source) Venous insufficiency (chronic) (peripheral); Translations: [Venous insufficiency (chronic) (peripheral)] Onset: 07-23-2024 Episodic Previous (15 sources) ; Translations: [Maternal care for unspecified type scar from previous delivery] Onset: 03-21-2021 03-25-2021 Episodic Residual codes; unclassified (13 sources) Carrier of cystic fibrosis gene mutation; Translations: [Cystic fibrosis carrier] Onset: 08-25-2019 08-25-2019 Episodic Results Test Name Value Interpretation Reference Range Facility [facility] 05-06-2025 CNOV Office Visit (OBGYWM) TAMI STEVENS ([id number]) 1990 F Date Time Provider Department 05/06/25 2:30 PM CYNDIE PETTY OBGYWM During your visit today, we recorded the following information about you: Blood pressure Weight Height Last Period 108/ 83.9 kg 1.664 m 04/17/25 Cyndie Petty MD 05/06/2025 3:05 PM Signed Cnc Router Operator offered: Patient declines. Garrett is a 34 year old who presents for an annual gynecologic exam without complaints. Enjoys camping. 2 kids ages 3/5. 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 Set Up Operator Thread History LMP: 04/17/2025 (Exact Date), Having periods Age at Menarche: Age at First : Age at Menopause: Grinder Set Up Operator Thread History Comments: Sexual Activity: Yes; Male Contraception: No contraception data on record PAST MEDICAL HISTORY Diagnosis Date Dermoid cyst fracture right wrist-roller skating Infertility, female PMH - PAST MEDICAL HISTORY OF color vision normal PMH - PAST MEDICAL HISTORY OF varicella at age 6 years PMH - PAST MEDICAL HISTORY OF 10/03 fractured right wrist PMH - PAST MEDICAL HISTORY OF bilateral kidney reflux surgery @ 7 years of age PAST SURGICAL HISTORY Procedure Laterality Date DELIVERY ONLY 11/08/2021 LTCS DELIVERY ONLY 03/13/2020 LITHROTRIPSY 09/2022 OOPHORECTOMY PARTIAL/TOTAL UNI/BI 12/2018 left ovary for dermoid cyst URETEROPLASTY PLASTIC OPERATION URETER FAMILY HISTORY Problem Relation Age of Onset No Known Problems Mother other (anemia) Father other (PCOS) Sister No Known Problems Sister No Known Problems Maternal Grandmother Heart Maternal Grandfather No Known Problems Paternal Grandmother Heart Paternal Grandfather Diabetes Other maternal side No Known Problems Son SOCIAL HISTORY Social History Tobacco Use Smoking status: Never Smokeless tobacco: Never Vaping Use Vaping status: Never Used Substance Use Topics Alcohol use: Not Currently Comment: occasionally drinks Drug use: No REVIEW OF SYSTEMS Abdomen: No abdominal pain, nausea, vomiting, diarrhea, or constipation. No bloating, early satiety, indigestion, or increased flatulence. Bladder: No dysuria, gross hematuria, urinary frequency, urinary urgency, or incontinence. Breast: No breast lumps, nipple d/c, overlying skin changes, redness or skin retraction. Allergies and current medication updated:Yes SENSITIVE EXAM: The sensitive examination was discussed with the Patient or Patient's Authorized Employee Communications Coordinator. As applicable, any other physician, advance practice provider, medical student, or other health professional student that will be observing or involved in the sensitive examination for educational or training purposes was discussed with the Patient or Authorized Employee Communications Coordinator. The Patient or Authorized Employee Communications Coordinator has agreed to proceed with the sensitive examination. (Sensitive examination includes inspection and/or palpation of the breasts, pelvis, prostate and anorectal regions). EXAM: BP 108/74 Ht 5' 5.5 (1.66m) Wt 185 lb (83.9kg) LMP 04/17/2025 BMI 30.31 kg/(m2). GENERAL: pleasant, female in no apparent distress HEENT: Normocephalic, atraumatic, mucus membranes moist, and no lesions NECK: Supple, full range of motion, no adenopathy, and thyroid normal DERMATOLOGY: Normal, without lesions, non-icteric, and non-hirsute BREAST: soft, non-tender, symmetric, no dominant mass, normal nipple-areolar complex, no lymphadenopathy, and no nipple discharge CHEST: Normal inspiratory effort ABDOMEN: soft, non-tender, and no masses PELVIC: external genitalia normal, normal Bartholin's glands, urethra, Jenison's glands, no vulvar lesions, no cervical lesions, good vaginal support, physiologic discharge present, normal appearing perineal body and perianal region. Labia minora agglutination to labia majora. No ulcerations BIMANUAL: uterus normal size, shape and consistency, no adnexal masses, and non-tender RECTOVAGINAL: deferred. NEURO: alert and oriented x3,exam grossly non-focal EXTREMITIES: normal ASSESSMENT/PLAN: 1) Health maintenance: Pap/HPV up to date. Nutrition, exercise and routine health maintenance exams reviewed. Colon cancer screening: start at age 45 2) Contraception: condoms. Contraceptive options reviewed and information provided. 3) STD screening: Declined STI check. 4) Follow up one y (more content not included)... Normal [facility] Venous duplex ultrasound rep ortOrdered By: Etta Lainez on 04-22-2025 US Vein [facility] [address] [place] [address] Venous Duplex US, Unilateral 03/30/25 1417 MR#: [id number] Acct: [id number] Name: TAMI STEVENS Rep #: [id number] : 1990 34 From: Etta law MD Attending Dr: Dr. Etta Lainez MD Status: DEP CLI Ordering Dr: Etta Lainez MD Date: 03/30/25 Location: [facility] Sex: F C Admitted: Reason For Study Reason For Study: Vein Compression Syndrome Procedure LEFT This is a venous duplex using B-mode, color flow and CFV is compressible, spontaneous, phasic, competent, spectral Doppler. and demonstrates normal augmentation. Exam performed in department. FV is compressible, spontaneous, phasic, competent Patient was scanned in reverse Trendelenburg position and demonstrates normal augmentation. during reflux assessment. POP V is compressible, spontaneous, phasic, competent and demonstrates normal augmentation. T/P Trunk is compressible. PTV is compressible. LT PerV is compressible. SFJ is competent and measures 0.72 cm. GSV proximal thigh measures 0.40x0.52 cm. GSV above kneeis competent. GSV at knee measures 0.32x0.39 cm. GSV below kneeis INCOMPETENT for greater than 0.5 seconds. ASV mid calf is INCOMPETENT for greater than 0.5 seconds and measures 0.22x0.19 cm. SSV mid calf is competent and measures 0.21x0.24 cm. VL/Venous Duplex US, Unilateral Interpretation Summary No DVT left leg. Left calf GSV and ASV with reflux. Ordering Physician: Etta Lainez Referring Physician: Clarke Swartz MD Performed By: Christine Stevens RVT 04/22/25 0709 Date _ Etta Lainez MD CC: Dr. Etta Lainez MD; Dr. Clarke Chávez MD ~ Date Dictated: 09/1416 Date Transcribed: 04/22/25 0709 Edging Machine Setter: Signed [facility] Work Phone: Venous Duplex US, Unilateral on 03-30-2025 Venous Duplex US, Unilateral [facility] [address] [place] [address] Venous Duplex US, Unilateral 03/30/251416 MR#: [id number] Acct: [id number] Name: TAMI STVEENS Rep #: [id number] : 1990 34 From: Etta Lainez MD Attending Dr: Dr. Etta Lainez MD Status: DE P CLI Ordering Dr: Etta Lainez MD Date: 03/30/25 Location: [facility] Sex: F C Admitted: Reason For Study Reason For Study: Vein Compression Syndrome Procedure LEFT This is a venous duplex using B-mode, color flow and CFV is compressible, spontaneous, phasic, competent, spectral Doppler. and demonstrates normal augmentation. Exam performed in department. FV is compressible, spontaneous, phasic, competent Patient was scanned in reverse Trendelenburg position and demonstrates normal augmentation. during reflux assessment. POP V is compressible, spontaneous, phasic, competent and demonstrates normal augmentation. T/P Trunk is compressible. PTV is compressible. LT PerV is compressible. SFJ is competent and measures 0.72 cm. GSV proximal thigh measures 0.40x0.52 cm. GSV above knee is competent. GSV at knee measures 0.32x0.39 cm. GSV below knee is INCOMPETENT for greater than 0.5 seconds. ASV mid calf is INCOMPETENT for greater than 0.5 seconds and measures 0.22x0.19 cm. SSV mid calf is competent and measures 0.21x0.24 cm. VL/Venous Duplex US, Unilateral Interpretation Summary No DVT left leg. Left calf GSV and ASV with reflux. Ordering Physician: Etta Lainez Referring Physician: Clarke Swartz MD Performed By: Christine Stevens RVT 04/22/25708 Date Etta Lainez MD CC: Dr. Etta Lainez MD; Dr. Clarke Chávez MD Date Dictated: 03/30/25 1417 Date Transcribed: 04/22/25708 Edging Machine Setter: Signed Normal [facility] Abdomen/Pelvis without Conto n 03-19-2025 Abdomen/Pelvis without Cont [facility] Imaging Services [address] [place] [address] Abdomen/Pelvis without Cont MR#: [id number] Acct: [id number] Name: HILDATAMI CHRISTIAN LAWRENCE Rep #: [id number] : 1990 F 34 From: Migel Lorenzana MD PCP: Dr. Clarke Chávez MD Status: REG CLI Study: Abdomen/Pelvis without Cont Date of Exam: 03/02 02/23 Exam# [id number] Ordering Dr: Shira Domingo MD PROCEDURE: ABDOMEN/PELVIS WITHOUT CONT 03/19/2025 REASON FOR EXAM: STONES, BACK PAIN TECHNIQUE: Procedure Code: CTABDPEL Modality: CT Procedure: ABDOMEN/PELVIS WITHOUT CONT Noncontrast technique limits evaluation of the abdominal and pelvic viscera. Coronal and Sagittal reconstruction series were provided. One or more dose reduction techniques were used (e.g., Automated exposure control, adjustment of the mA and/or kV according to patient size, use of iterative reconstruction technique). RADIATION DOSE SUMMARY: CTDlvol: 8.1 mGy DLP: 422 mGycm COMPARISON: None FINDINGS: Lung bases: Mild bibasilar atelectasis. Liver: Normal size. No obvious mass. Gallbladder: Unremarkable Spleen: Normal size. Pancreas: Normal size. No surrounding inflammation. Adrenals: Unremarkable Kidneys: There is small nonobstructing right lower pole renal calculus measuring 3 mm. No right hydronephrosis. Small punctate 2 mm left midpole renal calculus. Mild left hydronephrosis. There is 5 mm calculus at left UVJ. Bladder: Bladder is distended with urine. Reproductive Organs: Unremarkable Bowel: Colonic diverticulosis without evidence of diverticulitis. Moderate stool burden. Appendix: The appendix is not identified. There is no inflammatory process identified in the right lower quadrant to suggest appendicitis. Lymph nodes: No suspicious lymph node enlargement. Vasculature: The abdominal aorta and IVC contours are normal. Noncontrast technique limits evaluation. Peritoneum / Retroperitoneum: Unremarkable Bones: Unremarkable CT/Abdomen/Pelvis without Cont IMPRESSION: There is small punctate 2 mm left midpole renal calculus with mild left hydronephrosis. Additionally there is 5 mm calculus at left UVJ. Small nonobstructing right lower pole renal calculus measuring 3 mm. Reading Location: [facility] CC: Dr. Shira Domingo MD; Dr. 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: Signed Normal [facility] - Chemistry and C hemistry - challengeOrdered By: Shira Domingo on 03-17-2025 Bilirubin Ql (U) Negative [facility] Glucose Ql (U) Negative [facility] Ketones Ql (U) Negative [facility] pH (U) 7.5 [pH] [facility] Specific gravity (U) [Rel density] 1.005 [facility] Urobilinogen (U) [Mass/Vol] Negative [facility] - Hematology and Cell countsOrdered By: Shira Domingo on 03-17-2025 Hemoglobin Ql (U) Small [facility] - UrinalysisOrder ed By: Shira Domingo on 03-17-2025 Nitrite Ql (U) Negative [facility] Protein Ql (U) Negative [facility] MR/BMSMaverick 03-17-2025 MR/[facility] [address], [address] [place] [address] OFFICE VISIT Date of Service: 03/17/25 MR#: [id number] Acct: [id number] Name: TAMI STEVENS Rep #: [id number] : 1990 Provider: Dr. Shira Downey i, MD Age/Sex: 34/F Location: [facility] [place] Status: Signed Intake Vital Signs 10/19/22 10:41 03/17/25 11:44 Height 5 ft 6 in 5 ft 6 in Weight: 175 lb BMI 28.2 BP 134/81 H Pulse 67 Intake Visit Reasons: UTI burning low back pain night sweats Chief Complaint: possible Uti Certified Court/Medical Interpreter Required: No Accompanied by: self Is patient in pain?: Yes (lower back pain ) Pain scale (1-10): 4 Allergies No Known Allergies Allergy (Verified 03/17/25 11:42) Medications ???Medication ???Instructions ???Recorded ???Confirmed ???Type Lactobacillus acidophilus 10 10,000 mmu cells PO ONCE 03/17/25 03/17/25 History billion cell capsule ascorbate calcium (vitamin C) 500 500 mg PO QDAY 03/17/25 03/17/25 History mg tablet cranberry 500 mg capsule 500 mg PO BID 03/17/25 03/17/25 Hi story multivitamin 1 tab PO QAM 03/17/25 03/17/25 His tory phenazopyridine 200 mg tablet 200 mg PO TID #30 tabs 03/17/25 Rx (Pyridium) Is last menstrual period known: Yes Last menstrual period: 03/17/25 Nurse's Note: lower back pain, burning, itching vaginally, pressure in bladder/pelvis, and night sweats since march 01. denies fever nausea and vomiting. took start TX and monostat with no relief. [facility] Medical History (Updated 03/17/25 @ 16:[address] Shira Domingo MD) Other specified disorders of bladder Urge incontinence UTI (urinary tract infection) Flank pain Kidney stones Left renal stone Wears glasses Alcohol use Anemia Migraine headache Passed out Non-smoker Urinary tract infection with hematuria Teratoma MRSA infection Infertility Kidney disease Acute pharyngitis, unspecified Shingles Surgical History Hx of ureter repair History of oophorectomy Previous section History of urinary tract surgery Social History Smoking Status: Never smoker alcohol intake: never substance use type: does not use caffeine: Yes what type of physical activity do you participate in: running frequency: 3-4 times per week seatbelt use: always do you feel safe at home: Yes 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 She is here for a possible acute urinary tract infection. Symptoms of an infection started about 2 weeks ago. She is having low back pain, urgency and fullness suprapubic area, dysuria and night sweats. She took her start therapy and Monistat without improvement. No gross hematuria. No fever. She had her annual labs done yesterday showing protien in the urine and low WBC. She is menstruating currently. She is not constipated. Most of the time her UA in the office is negative and the culture is positive. She has a history of stones. Last imaging done showed about a 5mm stone in each kidney and that was 2 years ago. She is not sure if one is passing or not. ROS Const Constitutional: No chills, fatigue, fever(s), headache(s), night sweats, weakness, weight change, abnormal sleep pattern or change in appetite Eyes Eyes: No change in vision ENT ENT: No headache(s) or dry mouth Resp Respiratory: No cough, chest congestion, shortness of breath or wheezing Cardio Cardiology: Positive for other (No chest pain.); No shortness of breath, irregular heart rhythm or lightheadedness Gastro GI: Positive for abdominal pain and other (No nausea.); No change in bowel habits, constipation, diarrhea or vomiting Musc Musculoskeletal: Positive for back pain; No abnormal gait Skin Skin: No yellowing of the eye, lesions, itchy eyes, rash or skin ulcer Neuro Neurology: No abnormal gait, confusion, dizziness, weakness, headache(s) or memory loss Psych Psychiatric: No abnormal sleep pattern, No change in appetite, No confusion and No memory loss Endo Endocrine: No fatigue, increased thirst/drinking or weight change Aller/Imm Allergy/Immunologic: No itchy eyes or wheezing Aleksey/Lymp Hematologic/Lymphati c: No easy bleeding, easy bruising or enlarged lymph nodes Exam Const General: cooperative, healthy appearing, comfortable and no acute distress [facility] Head: normocephalic and atraumatic Ears: hearing grossly normal bilaterally and external ears normal Nose: external nose normal Eyes General: appearance normal, bot (more content not included)... Normal [facility] No Panel InformationOrdered By: Shira Domingo on 03-17-2025 Urine Leukocytes Negatve [facility] Urine Non-Hemolyzed Blood Negative [facility] Absolute lymphocyte countOrd ered By: HEALTH ASSESSMENT on 03-16-2025 Lymphocytes Auto (Unsp spec) [#/Vol] 1.20 10*3/uL 0.83-4.51 [facility] Absolute neutrophil countOrd ered By: HEALTH ASSESSMENT on 03-16-2025 Neutrophils (Bld) [#/Vol] 1.9 10*3/uL Low 2.0-7.7 [facility] Absolute nucleated red blood cell countOrdered By: HEALTH ASSESSMENT on 03-16-2025 Nucleated RBC (Bld) [#/Vol] 0.00 10*3/uL 0-5 [facility] Anion gap in Serum or Plasma Ordered By: HEALTH ASSESSMENT on 03-16-2025 Anion gap [Moles/Vol] 9 mmol/L 5-15 [facility] BUN/creatinine ratioOrdered By: HEALTH ASSESSMENT on 03-16-2025 Urea nitrogen/Creatinine [Mass ratio] 20.3 mg/mg High 10-20 [facility] Comment on above: Previous reported re sult: 19.6 RATIOEdited by: AUTOINS on 03/16/25:0856 AMENDED REPORT 03/16/25 0856 BUN/CRE previously reported as: 19.6 RATIO Bilirubin Test strip Ql (U)O rdered By: HEALTH ASSESSMENT on 03-16-2025 Bilirubin Ql (U) Negative Negative [facility] Bilirubin directOrdered By: HEALTH ASSESSMENT on 03-16-2025 Bilirubin.direct [Mass/Vol] 0.14 mg/dL 0.00-0.30 [facility] Bilirubin, totalOrdered By: HEALTH ASSESSMENT on 03-16-2025 Bilirubin [Mass/Vol] 0.40 mg/dL 0.00-1.30 [facility] Comment on above: Previous reported re sult: 0.39 mg/dLEdited by: VIKKI on 03/16/25:0856 AMENDED REPORT 03/16/2556 T BILI previously reported as: 0.39 mg/dL CBC, Employeeon 03-16-2025 Absolute Lymph 1.20 X10 3/uL Normal 0.83-4.51 [facility] Comment on above: Performed By: #### L 100.0200, L400.0100, L500.2900 #### [facility] [address] [place], [address] Absolute Neut 1.9 X10 3/uL Low 2.0-7.7 [facility] Comment on above: Performed By: #### L 100.0200, L400.0100, L500.2900 #### [facility] [address] [place], [address] Basophils/100 WBC (Bld) 0.8 % Normal 0-1 [facility] Comment on above: Performed By: #### L 100.0200, L400.0100, L500.2900 #### [facility] [address] [place], [address] Eosinophils/100 WBC (Bld) 2.9 % Normal 0-5 [facility] Comment on above: Performed By: #### L 100.0200, L400.0100, L500.2900 #### [facility] [address] [place], [address] Erythrocyte distribution width (RBC) [Ratio] 11.7 % Normal 11.6-14.6 [facility] Comment on above: Performed By: #### L 100.0200, L400.0100, L500.2900 #### [facility] [address] [place], [address] Hematocrit (Bld) [Volume fraction] 36.7 % Low 37-47 [facility] Comment on above: Performed By: #### L 100.0200, L400.0100, L500.2900 #### [facility] [address] [place], [address] Hemoglobin (Bld) [Mass/Vol] 12.4 g/dL Normal 12.0-15.0 [facility] Comment on above: Performed By: #### L 100.0200, L400.0100, L500.2900 #### [facility] [address] [place], [address] Lymphocytes/100 WBC (Bld) 31.7 % Normal 19-41 [facility] Comment on above: Performed By: #### L 100.0200, L400.0100, L500.2900 #### [facility] [address] [place], [address] MCH (RBC) [Entitic mass] 30.8 pg Normal 27.0-32.0 [facility] Comment on above: Performed By: #### L 100.0200, L400.0100, L500.2900 #### [facility] [address] [place], [address] MCHC (RBC) [Mass/Vol] 33.8 g/dL Normal 32-36 [facility] Comment on above: Performed By: #### L 100.0200, L400.0100, L500.2900 #### [facility] [address] [place], [address] MCV (RBC) [Entitic vol] 91.1 fL Normal 81-99 [facility] Comment on above: Performed By: #### L 100.0200, L400.0100, L500.2900 #### [facility] [address] [place], [address] Monocytes/100 WBC (Bld) 13.5 % High 0-10 [facility] Comment on above: Performed By: #### L 100.0200, L400.0100, L500.2900 #### [facility] [address] [place], [address] Neutrophils/100 WBC (Bld) 50.8 % Normal 47-70 [facility] Comment on above: Performed By: #### L 100.0200, L400.0100, L500.2900 #### [facility] [address] [place], [address] NRBC # 0.00 10 3/uL Normal 0-5 [facility] Comment on above: Performed By: #### L 100.0200, L400.0100, L500.2900 #### [facility] [address] [place], [address] Nucleated RBC (Bld) [#/Vol] 0 10*3/uL Normal 0-5 [facility] Comment on above: Performed By: #### L 100.0200, L400.0100, L500.2900 #### [facility] [address] [place], [address] Platelet mean volume (Bld) [Entitic vol] 9.6 fL Normal 6.2-12.0 [facility] Comment on above: Performed By: #### L 100.0200, L400.0100, L500.2900 #### [facility] [address] [place], [address] Platelets (Bld) [#/Vol] 200 10*3/uL Normal 150-450 [facility] Comment on above: Performed By: #### L 100.0200, L400.0100, L500.2900 #### [facility] [address] [place], [address] RBC (Bld) [#/Vol] 4.03 10*6/uL Low 4.2-5.4 [facility] Comment on above: Performed By: #### L 100.0200, L400.0100, L500.2900 #### [facility] [address] [place], [address] RDW SD 39.3 fl Normal 35.1-43.9 [facility] Comment on above: Performed By: #### L 100.0200, L400.0100, L500.2900 #### [facility] [address] [place], [address] WBC (Bld) [#/Vol] 3.8 10*3/uL Low 4.4-11.0 [facility] Comment on above: Performed By: #### L 100.0200, L400.0100, L500.2900 #### [facility] [address] [place], [address] Calculated very low density lipoprotein (VLDL) cholesterol measurementOrdered By: HEALTH ASSESSMENT on 03-16-2025 Calculated very low density lipoprotein (VLDL) cholesterol measurement 22 mg/dL 5-40 [facility] Carbon dioxide, total [Moles /volume] in Central venous bloodOrdered By: HEALTH ASSESSMENT on 03-16-2025 CO2 [Moles/Vol] 24.7 mmol/L 21.0-32.0 [facility] Comment on above: Previous reported re sult: 24.2 mmol/LEdited by: AUTOINS on 03/16/25:0856 AMENDED REPORT 03/16/25 0856 CO2 previously reported as: 24.2 mmol/L Chloride assayOrdered By: ALTH ASSESSMENT on 03-16-2025 Chloride [Moles/Vol] 105 mmol/L 98-108 [facility] Employee Profileon CHOL:HDL 3.18 Normal [facility] Comment on above: Performed By: #### L 100.0200, L400.0100, L500.2900 #### [facility] [address] [place], [address] Cholesterol [Mass/Vol] 161 mg/dL Normal <=200 [facility] Comment on above: Result Comment: Chol esterol level, Desirable <200 mg/dL Borderline high cholesterol 200-239 mg/dL High cholesterol >=240 mg/dL Recommendations of the NCEP Adult Treatment Panel for the following risk-cutoff thresholds for the [place] population. Performed By: #### L 100.0200, L400.0100, L500.2900 #### [facility] [address] [place], [address] Cholesterol in HDL [Mass/Vol] 51 mg/dL Normal [facility] Comment on above: Result Comment: Barbara onal Cholesterol Education Program (NCEP) guidelines: <40 mg/dL: Low HDL-cholesterol (major risk factor for CHD) >= 60 mg/dL: High HDL-cholesterol (negative risk factor for CHD) HDL-cholesterol is affected by a number of factors, e.g. smoking, exercise, hormones, sex and age. Performed By: #### L 100.0200, L400.0100, L500.2900 #### [facility] [address] [place], [address] Cholesterol in LDL [Mass/Vol] 89 mg/dL Normal [facility] Comment on above: Result Comment: Bord qcplrr=086-494 mg/dL Higher Bfxj=292 mg/dL or greater Friedwald Equation for LDL-C Performed By: #### L 100.0200, L400.0100, L500.2900 #### [facility] [address] [place], [address] Cholesterol in VLDL [Mass/Vol] 22 mg/dL Normal 5-40 [facility] Comment on above: Performed By: #### L 100.0200, L400.0100, L500.2900 #### [facility] [address] [place], [address] LDH 158 U/L Normal 84-246 [facility] Comment on above: Performed By: #### L 100.0200, L400.0100, L500.2900 #### [facility] [address] [place], [address] Phosphate [Mass/Vol] 3.2 mg/dL Normal 2.7-4.5 [facility] Comment on above: Performed By: #### L 100.0200, L400.0100, L500.2900 #### [facility] [address] [place], [address] Triglyceride [Mass/Vol] 109 mg/dL Normal [facility] Comment on above: Result Comment: The drugs N-Acetylcysteine and Metamizole may falsely depress this assay. Normal range: <150 mg/dL Borderline High: 150-199 mg/dL High: 200-499 mg/dL Very High: >500 mg/dL Performed By: #### L 100.0200, L400.0100, L500.2900 #### [facility] [address] [place], [address] URIC 3.2 mg/dL Normal 2.6-6.0 [facility] Comment on above: Result Comment: The drugs N-Acetylcysteine and Metamizole may falsely depress this assay. Performed By: #### L 100.0200, L400.0100, L500.2900 #### [facility] [address] [place], [address] Erythrocyte distribution wid th ratioOrdered By: HEALTH ASSESSMENT on 03-16-2025 Erythrocyte distribution width (RBC) [Ratio] 11.7 % 11.6-14.6 [facility] Erythrocyte distribution wid th standard deviationOrdered By: HEALTH ASSESSMENT on 03-16-2025 Erythrocyte distribution width (RBC) [Ratio] 39.3 fl 35.1-43.9 [facility] Glomerular filtration rate ( GFR) estimation/1.73 sq m using serum, plasma, or whole bOrdered By: HEALTH ASSESSMENT on 03-16-2025 GFR/1.73 sq M.predicted among non-blacks MDRD (S/P/Bld) [Vol rate/Area] 113 mL/min/{1.73_m2} >60 [facility] Comment on above: mL/min/1.73m2 CKD-EP I Creatinine Equation (2020) Hematocrit Auto (Bld) [Volum e fraction]Ordered By: HEALTH ASSESSMENT on 03-16-2025 Hematocrit (Bld) [Volume fraction] 36.7 % Low 37-47 [facility] Hemoglobin measurementOrdere d By: HEALTH ASSESSMENT on 03-16-2025 Hemoglobin (Bld) [Mass/Vol] 12.4 g/dL 12.0-15.0 [facility] Ketones Test strip Ql (U)Ord ered By: HEALTH ASSESSMENT on 03-16-2025 Ketones Ql (U) Negative Negative [facility] LDL calc ser/plasOrdered By: HEALTH ASSESSMENT on 03-16-2025 Cholesterol in LDL [Mass/Vol] 89 mg/dL [facility] Comment on above: Enywjpvnoh=750-215 m g/dL & Higher Zjxz=704 mg/dL or greaterFriedwald Equation for LDL-C Laboratory - Chemistry and C hemistry - challengeOrdered By: HEALTH ASSESSMENT on 03-16-2025 AST [Catalytic activity/Vol] 15 U/L <32 [facility] Lactate dehydrogenase (LDH) measurementOrdered By: HEALTH ASSESSMENT on 03-16-2025 LDH [Catalytic activity/Vol] 158 U/L 84-246 [facility] MCV (mean corpuscular volume ) determinationOrdered By: HEALTH ASSESSMENT on 03-16-2025 MCV (RBC) [Entitic vol] 91.1 fL 81-99 [facility] Mean corpuscular hemoglobin (MCH) determinationOrdered By: HEALTH ASSESSMENT on 03-16-2025 MCH (RBC) [Entitic mass] 30.8 pg 27.0-32.0 [facility] Mean corpuscular hemoglobin concentration (MCHC) determinationOrdered By: HEALTH ASSESSMENT on 03-16-2025 MCHC (RBC) [Mass/Vol] 33.8 g/dL 32-36 [facility] Mean platelet volume determi nationOrdered By: HEALTH ASSESSMENT on 03-16-2025 Platelet mean volume (Bld) [Entitic vol] 9.6 fL 6.2-12.0 [facility] Neutrophil percentageOrdered By: HEALTH ASSESSMENT on 03-16-2025 Neutrophils/100 WBC (Bld) 50.8 % 47-70 [facility] Nitrite Test strip Ql (U)Ord ered By: HEALTH ASSESSMENT on 03-16-2025 Nitrite Ql (U) Negative Negative [facility] Nucleated red blood cell per centageOrdered By: HEALTH ASSESSMENT on 03-16-2025 Nucleated RBC/100 WBC (Bld) [Ratio] 0 % 0-5 [facility] Platelet countOrdered By: HE ALTH ASSESSMENT on 03-16-2025 Platelets (Bld) [#/Vol] 200 10*3/uL 150-450 [facility] Potassium measurement (mass/ volume)Ordered By: HEALTH ASSESSMENT on 03-16-2025 Potassium (Unsp spec) [Mass/Vol] 4.2 mmol/L 3.3-5.1 [facility] Protein Test strip Ql (U)Ord ered By: HEALTH ASSESSMENT on 03-16-2025 Protein Ql (U) 15 mg/dl High Negative [facility] RBC Auto (Bld) [#/Vol]Ordere d By: HEALTH ASSESSMENT on 03-16-2025 RBC (Bld) [#/Vol] 4.03 10*6/uL Low 4.2-5.4 [facility] Screening total cholesterol/ high density lipoprotein (HDL) cholesterol ratioOrdered By: HEALTH ASSESSMENT on 03-16-2025 Cholesterol.total/Choles terol in HDL [Mass ratio] 3.18 {ratio} [facility] Serum creatinine measurement (mass/volume)Ordered By: HEALTH ASSESSMENT on 03-16-2025 Creatinine [Mass/Vol] 0.73 mg/dL 0.70-1.20 [facility] Serum globulin measurementOr dered By: HEALTH ASSESSMENT on 03-16-2025 Globulin (S) [Mass/Vol] 2.7 g/dL 2.2-4.2 [facility] Comment on above: Previous reported re sult: 2.8 g/dLEdited by: AUTOINS on 03/16/25:0856 AMENDED REPORT 03/16/25 0856 GLOB previously reported as: 2.8 g/dL Serum glucose measurement (m ass/volume)Ordered By: HEALTH ASSESSMENT on 03-16-2025 Glucose [Mass/Vol] 91 mg/dL 70-99 [facility] Serum or plasma alanine resendiz otransferase (ALT) measurementOrdered By: HEALTH ASSESSMENT on 03-16-2025 ALT [Catalytic activity/Vol] 11 U/L <35 [facility] Comment on above: Previous reported re sult: 12 U/LEdited by: VIKKI on 03/16/25:0856 AMENDED REPORT 03/16/25855 ALT previously reported as: 12 U/L Serum or plasma albumin diane urement (mass/volume)Ordered By: HEALTH ASSESSMENT on 03-16-2025 Albumin [Mass/Vol] 4.2 g/dL 3.5-5.0 [facility] Comment on above: Previous reported re sult: 4.3 g/dLEdited by: VIKKI on 03/16/25:0856 AMENDED REPORT 03/16/25855 ALB previously reported as: 4.3 g/dL Serum or plasma albumin/glob ulin mass ratioOrdered By: HEALTH ASSESSMENT on 03-16-2025 Albumin/Globulin [Mass ratio] 1.5 {ratio} 0.9-2.4 [facility] Comment on above: Previous reported re sult: 1.5 RATIOEdited by: VIKKI on 03/16/25:0856 AMENDED REPORT 03/16/25855 A/G previously reported as: 1.5 RATIO Serum or plasma alkaline lesa sphatase measurementOrdered By: HEALTH ASSESSMENT on 03-16-2025 ALP [Catalytic activity/Vol] 42 U/L 35-104 [facility] Comment on above: Previous reported re sult: 41 U/LEdited by: VIKKI on 03/16/25:0856 AMENDED REPORT 03/16/25855 ALK P previously reported as: 41 U/L Serum or plasma calcium diane urement (mass/volume)Ordered By: HEALTH ASSESSMENT on 03-16-2025 Calcium [Mass/Vol] 9.0 mg/dL 7.6-11.0 [facility] Serum or plasma cholesterol in HDL measurement (mass/volume)Ordered By: HEALTH ASSESSMENT on 03-16-2025 Cholesterol in HDL [Mass/Vol] 51 mg/dL >40 [facility] Comment on above: National Cholesterol Education Program (NCEP) guidelines:<40 mg/dL: Low HDL-cholesterol (major risk factor for CHD)>= 60 mg/dL: High HDL-cholesterol (negative risk factor for CHD)HDL-cholesterol is affected by a number of factors, e.g. smoking, exercise, hormones, sex and age. Serum or plasma cholesterol measurement (mass/volume)Ordered By: HEALTH ASSESSMENT on 03-16-2025 Cholesterol [Mass/Vol] 161 mg/dL <201 [facility] Comment on above: Cholesterol level, D esirable <200 mg/dLBorderline high cholesterol 200-239 mg/dLHigh cholesterol >=240 mg/dLRecommendations of the NCEP Adult Treatment Panel for the following risk-cutoff thresholds for the [place] population. Serum or plasma urea nitroge n measurement (mass/volume)Ordered By: HEALTH ASSESSMENT on 03-16-2025 Urea nitrogen [Mass/Vol] 15 mg/dL 4-19 [facility] Comment on above: Previous reported re sult: 14 mg/dLEdited by: [employer] on 03/16/25:0856 AMENDED REPORT 03/16/25855 BUN previously reported as: 14 mg/dL Serum or plasma uric acid me asurement (mass/volume)Ordered By: [facility] ASSESSMENT on 03-16-2025 Urate [Mass/Vol] 3.2 mg/dL 2.6-6.0 [facility] Comment on above: The drugs N-Acetylcy steine and Metamizole may falsely depress this assay. Sodium levelOrdered By: [facility] ASSESSMENT on 03-16-2025 Sodium [Moles/Vol] 139 mmol/L 133-145 [facility] Total proteinOrdered By: MATHIEU [facility] ASSESSMENT on 03-16-2025 Protein [Mass/Vol] 6.9 g/dL 5.9-8.4 [facility] Comment on above: Previous reported re sult: 7.1 g/dLEdited by: [employer] on 03/16/25:0856 AMENDED REPORT 03/16/25855 T PROT previously reported as: 7.1 g/dL Triglycerides measurementOrd ered By: HEALTH ASSESSMENT on 03-16-2025 Triglyceride [Mass/Vol] 109 mg/dL <199 [facility] Comment on above: The drugs N-Acetylcy steine and Metamizole may falsely depress this assay. Normal range: <150 mg/dLBorderline High: 150-199 mg/dLHigh: 200-499 mg/dLVery High: >500 mg/dL Urinalysis, Employeeon 03-16 BILIRUBIN URINE Negative Normal Negative [facility] Comment on above: Order Comment: Urine , Random Performed By: #### L 100.0200, L400.0100, L500.2900 #### [facility] [address] [place], [address] Clarity (U) Clear Normal Clear [facility] Comment on above: Order Comment: Urine , Random Performed By: #### L 100.0200, L400.0100, L500.2900 #### [facility] [address] [place], [address] Color (U) Yellow Normal Yellow [facility] Comment on above: Order Comment: Urine , Random Performed By: #### L 100.0200, L400.0100, L500.2900 #### [facility] [address] [place], [address] GLUCOSE, UR Normal Normal Normal [facility] Comment on above: Order Comment: Urine , Random Performed By: #### L 100.0200, L400.0100, L500.2900 #### [facility] [address] [place], [address] KETONE UR Negative Normal Negative [facility] Comment on above: Order Comment: Urine , Random Performed By: #### L 100.0200, L400.0100, L500.2900 #### [facility] [address] [place], [address] LEUK ESTERASE Negative Normal Negative [facility] Comment on above: Order Comment: Urine , Random Performed By: #### L 100.0200, L400.0100, L500.2900 #### [facility] [address] [place], [address] Nitrite Ql (U) Negative Normal Negative [facility] Comment on above: Order Comment: Urine , Random Performed By: #### L 100.0200, L400.0100, L500.2900 #### [facility] [address] [place], [address] OCCULT BLOOD-UR 250 /ul Abnormal Negative [facility] Comment on above: Order Comment: Urine , Random Performed By: #### L 100.0200, L400.0100, L500.2900 #### [facility] [address] [place], [address] pH UR 6.0 Normal 5.0 - 8.0 [facility] Comment on above: Order Comment: Urine , Random Performed By: #### L 100.0200, L400.0100, L500.2900 #### [facility] [address] [place], [address] PROT DIPSTX 15 mg/dl Abnormal Negative [facility] Comment on above: Order Comment: Urine , Random Performed By: #### L 100.0200, L400.0100, L500.2900 #### [facility] [address] [place], [address] SP.GR. DIPSTX 1.020 Normal 1.002-1.030 [facility] Comment on above: Order Comment: Urine , Random Performed By: #### L 100.0200, L400.0100, L500.2900 #### [facility] [address] [place], [address] UROBILI Normal Normal Normal [facility] Comment on above: Order Comment: Urine , Random Performed By: #### L 100.0200, L400.0100, L500.2900 #### [facility] [address] [place], [address] Urine clarityOrdered By: MATHIEU [facility] ASSESSMENT on 03-16-2025 Clarity (U) Clear Clear [facility] Urine color determinationOrd ered By: HEALTH ASSESSMENT on 03-16-2025 Color (U) Yellow Yellow [facility] Urine glucose detectionOrder ed By: HEALTH ASSESSMENT on 03-16-2025 Glucose Ql (U) Normal mg/dl Normal [facility] Urine leukocyte esterase det ection by dipstickOrdered By: HEALTH ASSESSMENT on 03-16-2025 Leukocyte esterase Test strip Ql (U) Negative Negative [facility] Urine pHOrdered By: HEALTH A SSESSMENT on 03-16-2025 pH (U) 6.0 [pH] 5.0 - 8.0 [facility] Urine specific gravity measu rementOrdered By: HEALTH ASSESSMENT on 03-16-2025 Specific gravity (U) [Rel density] 1.020 1.002-1.030 [facility] Urine urobilinogen measureme ntOrdered By: HEALTH ASSESSMENT on 03-16-2025 Urobilinogen Ql (U) Normal mg/dl Normal [facility] White blood cell (WBC) count Ordered By: HEALTH ASSESSMENT on 03-16-2025 WBC (Bld) [#/Vol] 3.8 10*3/uL Low 4.4-11.0 [facility] CT VENOGRAM ABDOMEN AND PELV [facility] 01-01-2025 CT VENOGRAM ABDOMEN AND PELVIS ORIGINAL EXAMINATION: CT VENOGRAM OF THE ABDOMEN AND PELVIS12/30/2024 4:29 pm TECHNIQUE: CT venogram of the abdomen/pelvis was performed with the administration of intravenous contrast. Multiplanar reformatted images are provided for review. MIP images are provided for review. Automated exposure control, iterative reconstruction, and/or weight based adjustment of the mA/kV was utilized to reduce the radiation dose to as low as reasonably achievable. COMPARISON: None available HISTORY: ORDERING SYSTEM PROVIDED HISTORY: Reason for Exam: VEIN COMPRESSION SYNDROME FINDINGS: Pre contrasted images demonstrate no abnormal vascular or renal calcifications. Venous phase and delayed phase images reveal robust IVC and venous structures. There is adequate opacification of the IVC, portal venous system, hepatic veins, and iliac and femoral veins. At the level of the right common iliac artery, there is moderate compression of the left common iliac vein against the lumbar vertebral body and small osteophyte. The normal caliber of the left common iliac vein measures 2 cm, measuring 0.7 cm at the level of the compression. No filling defects to suggest thrombosis. No evidence of venous varicosities are significant vascular shunting. The visualized lung bases are clear. The liver is normal in size and enhancement. No focal hepatic lesion. The spleen, pancreas, or adrenal glands and gallbladder are within normal limits. The kidneys are symmetric in size and enhancement. No hydronephrosis. The urinary bladder is adequately distended. Uterus and right ovary are within physiologic limits. The left ovary is not visualized consistent with excision. There is no evidence of bowel obstruction. There is trace pelvic fluid, likely physiologic. No free air. The appendix is normal. There is lumbarization of the S1 level. There are bilateral L4 pars defects with no significant anterolisthesis. No aggressive osseous lesion. IMPRESSION: 1. Moderate compression of the left common iliac vein at the level of the right common iliac artery. No evidence of thrombosis, venous varicosities or vascular shunting. 2. No acute intra-abdominal or pelvic abnormality. 3. Bilateral L4 pars defects without significant anterolisthesis. Interpreted by: Ty Aldrich DO Preliminary Report By: Ty Aldrich DO Electronically signed By Ty Aldrich DO Dictated Date: 01/01/2025 11:00:50 AM Prelim Date: 01/01/2025 11:12:42 AM Sign Date: 01/01/2025 11:12:42 AM Ordering Provider: ETTA LAINEZ Interpreted by: Ty Aldrich DO Preliminary Report By: Ty Aldrich DO Electronically signed By Ty Aldrich DO Dictated Date: 01/01/2025 11:00:50 AM Prelim Date: 01/01/2025 11:12:42 AM Sign Date: 01/01/2025 11:12:42 AM Ordering Provider: ETTA LAINEZ Normal [facility] Venous Duplex US - Sachin Extre [facility] 06-26-2024 Venous Duplex US - Sachin Extrem [facility] [address] [place] [address] Venous Duplex US - Sachin Extrem 06/26/24 1009 MR#: [id number] Acct: [id number] Name: TAMI STEVENS Rep #: [id number] : 1990 33 From: Etta Lainez MD Attending Dr: Dr. Etta Lainez MD Status: RE G CLI Ordering Dr: Etta Lainez MD Date: 06/26/24 Location: [facility] Sex: F C Admitted: Reason For Study: Venous insufficiency RIGHT LEFT CFV is compressible, spontaneous, phasic, CFV is compressible, phasic, and INCOMPETENT competent and demonstrates normal for greater than 1.0 second. augmentation. FV is compressible, spontaneous, phasic, FV is compressible, spontaneous, phasic, competent and demonstrates normal competent and demonstrates normal augmentation. augmentation. POP V is compressible, spontaneous, phasic, POP V is compressible, spontaneous, phasic, competent and demonstrates normal competent and demonstrates normal augmentation. augmentation. T/P Trunk is compressible. T/P Trunk is compressible. PTV is compressible. PTV is compressible. LT PerV is compressible. RT PerV is compressible. SFJ is competent and measures 0.62 cm. SFJ is competent and measures 0.57 cm. GSV proximal thigh measures 0.29 x 0.30 cm. GSV proximal thigh measures 0.26 x 0.22 cm. GSV above knee is competent. GSV at knee measures 0.23 x 0.23 cm. GSV at knee measures 0.31 x 0.30 cm. GSV INCOMPETENT throughout for greater than GSV below knee is INCOMPETENT for greater 0.5 seconds. than 0.5 seconds. SSV mid calf is competent and measures 0.15 x ASV proximal calf is INCOMPETENT for greater 0.16 cm. than 0.5 seconds and measures 0.14 x 0.17 cm. Procedure SSV at junction is competent and measures This is a venous duplex using B-mode, color 0.25 cm. flow and spectral Doppler. Exam performed in department. Patient was scanned in reverse Trendelenburg position during reflux assessment. VL/Venous Duplex US - Sachin Extrem Interpretation Summary Bilateral no DVTor SVT. Right GSv reflux throughout. Left calf GSV and ASV reflux. Ordering Physician: Etta Lainez Referring Physician: Nicci Costello M.D. Performed By: Sarah Maradiaga RVT 07/08/241749 Date Etta Lainez MD CC: Dr. Nicci Costello MD; Dr. 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 Enriquez on 10-19-2022 HCG ( test) Ql (U) Negative [facility] Comment on above: Very dilute urine sp ecimens, as indicated by a low specificgravity, may not contain underwriting sales representative levels of hCG. If is still suspected, a first morning urinespecimen should be collected 48 hours later and tested. Culture, urineOrdered By: Dr Todd Domingo on 10-13-2022 Bacteria identified Cx Nom (U) Escherichia coli [facility] Absolute lymphocyte counton 11-30-2021 Lymphocytes Auto (Unsp spec) [#/Vol] 0.62 10*3/uL 0.83-4.51 [facility] Work Phone: Basophil percentageon 2021 Basophil percentage 10-25 SEEN /hpf [facility] Work Phone: Basophils/100 WBC (Bld) 0.2 % 0-1 [facility] Work Phone: Bilirubin [Mass/Vol] 0.30 mg/dL 0.20-1.00 [facility] Work Phone: Comment on above: For patients on eltr ombopag therapy, use of Dimension Montchanin TBIL is not recommended. Chloride [Moles/Vol] 106 mmol/L 98-107 [facility] Work Phone: Eosinophils/100 WBC (Bld) 0.3 % 0-5 [facility] Work Phone: Glucose [Mass/Vol] 108 mg/dL 74-106 [facility] Work Phone: Comment on above: Fasting Glucose resu lt from 100 to 125 mg/dL suggests IMPAIRED HOMEOSTASIS per A.D.A. criteria. Lactate [Moles/Vol] 0.4 mmol/L 0.4-2.0 [facility] Work Phone: Neutrophils (Bld) [#/Vol] 5.4 10*3/uL 2.0-7.7 [facility] Work Phone: Neutrophils/100 WBC (Bld) 80.2 % 47-70 [facility] Work Phone: Potassium [Moles/Vol] 3.9 mmol/L 3.5-5.1 [facility] Work Phone: Protein [Mass/Vol] 7.0 g/dL 6.4-8.2 [facility] Work Phone: Sodium [Moles/Vol] 137 mmol/L 136-145 [facility] Work Phone: WBC (Bld) [#/Vol] 6.7 10*3/uL 4.4-11.0 [facility] Work Phone: Bilirubin Test strip Ql (U)o n 11-30-2021 Bilirubin Ql (U) Negative Negative [facility] Work Phone: Blood erythrocytes count (nu mber/volume)on 11-30-2021 RBC (Bld) [#/Vol] 3.67 10*6/uL 4.2-5.4 [facility] Work Phone: Blood hemoglobin measurement (mass/volume)on 11-30-2021 Hemoglobin (Bld) [Mass/Vol] 10.9 g/dL 12.0-15.0 [facility] Work Phone: Blood lymphocytes/100 leukoc yteson 06-01-2022 Lymphocytes/100 WBC (Bld) 9.3 % 19-41 [facility] Work Phone: [phone] Blood monocytes/100 leukocyt eson 11-30-2021 Monocytes/100 WBC (Bld) 9.5 % 0-10 [facility] Work Phone: Blood platelet mean volumeon 11-30-2021 Platelet mean volume (Bld) [Entitic vol] 9.4 fL 6.2-12.0 [facility] Work Phone: Determination of erythrocyte mean corpuscular volume (MCV)on 11-30-2021 MCV (RBC) [Entitic vol] 90.7 fL 81-99 [facility] Work Phone: Hematocrit Auto (Bld) [Volum e fraction]on 11-30-2021 Hematocrit (Bld) [Volume fraction] 33.3 % 37-47 [facility] Work Phone: INR in Blood by Coagulation assayon 11-30-2021 INR Coag (Bld) [Relative time] 1.2 {INR} [facility] Work Phone: Ketones Test strip Ql (U)on 11-30-2021 Ketones Ql (U) 50 mg/dl Negative [facility] Work Phone: Laboratory - Chemistry and C hemistry - challengeon 11-30-2021 ALP [Catalytic activity/Vol] 78 U/L 45-117 [facility] Work Phone: ALT [Catalytic activity/Vol] 19 U/L 13-56 [facility] Work Phone: CO2 [Moles/Vol] 21.0 mmol/L 21.0-32.0 [facility] Work Phone: Globulin (S) [Mass/Vol] 4.2 g/dL 2.2-4.2 [facility] Work Phone: Urea nitrogen/Creatinine [Mass ratio] 15.6 mg/mg 10-20 [facility] Work Phone: Laboratory - Coagulationon 0 11-30-2021 PT Coag (PPP) [Time] 14.7 s 11.7-14.9 [facility] Work Phone: Laboratory - Hematology and Cell countson 11-30-2021 Erythrocyte distribution width (RBC) [Entitic vol] 43.0 fL 35.1-43.9 [facility] Work Phone: Erythrocyte distribution width (RBC) [Ratio] 12.9 % 11.6-14.6 [facility] Work Phone: Immature granulocytes/100 WBC (Bld) 0.500 % 0.0-0.9 [facility] Work Phone: Comment on above: IG% - Immature Granu locytes (promyelocytes, myelocytes and metamyelocytes) > 1% indicates that a LEFT SHIFT is Present. MCH (RBC) [Entitic mass] 29.7 pg 27.0-32.0 [facility] Work Phone: Nucleated RBC/100 WBC (Bld) [Ratio] 0 % 0-5 [facility] Work Phone: MCHC Auto (RBC) [Mass/Vol]on 11-30-2021 MCHC (RBC) [Mass/Vol] 32.7 g/dL 32-36 [facility] Work Phone: Mucus LM Ql (Urine sed)on Mucus Ql (Urine sed) 0 SEEN /hpf [facility] Work Phone: Nitrite Test strip Ql (U)on 11-30-2021 Nitrite Ql (U) Negative Negative [facility] Work Phone: No Panel Informationon 11-30 Estimated Creatinine Clearance Calc 80.95 ml/min [facility] Work Phone: Estimated GFR (MDRD) Amer 88 mL/min >60 [facility] Work Phone: Comment on above: GFR Calc Estimated GFR (MDRD) Non-Af Amer 73 mL/min >60 [facility] Work Phone: Comment on above: Non- GFR Calc SARS-CoV-2 & FLU Antigen (Rapid) [facility] Work Phone: Platelets bldon 11-30-2021 Platelets (Bld) [#/Vol] 159 10*3/uL 150-450 [facility] Work Phone: Protein Test strip Ql (U)on 11-30-2021 Protein Ql (U) 15 mg/dl Negative [facility] Work Phone: Serum or plasma albumin diane urement (mass/volume)on 11-30-2021 Albumin [Mass/Vol] 2.8 g/dL 3.2-5.0 [facility] Work Phone: Serum or plasma albumin/glob ulin mass ratioon 11-30-2021 Albumin/Globulin [Mass ratio] 0.7 {ratio} 0.9-2.4 [facility] Work Phone: Serum or plasma calcium diane urement (mass/volume)on 11-30-2021 Calcium [Mass/Vol] 8.7 mg/dL 8.5-10.1 [facility] Work Phone: Serum or plasma creatinine m easurement (mass/volume)on 11-30-2021 Creatinine [Mass/Vol] 0.96 mg/dL 0.55-1.02 [facility] Work Phone: Comment on above: The validity of the calculated GFR & GFRAA in patients over 70 years has not been determined. Clinical correlation is essential. Serum or plasma urea nitroge n measurement (mass/volume)on 11-30-2021 Urea nitrogen [Mass/Vol] 15 mg/dL 7-18 [facility] Work Phone: Squamous epithelial cells de tection in urine sediment by light microscopyon 11-30-2021 Epithelial cells.squamous LM Ql (Urine sed) 0 SEEN /hpf [facility] Work Phone: Thin prep Papanicolaou smear with manual screeningon 11-30-2021 Thin prep Papanicolaou smear with manual screening 12 U/L 15-37 [facility] Work Phone: Thin prep Papanicolaou smear with manual screening 10 5-15 [facility] Work Phone: Urine blood detectionon 06-0 RBC Ql (U) 250 /ul Negative [facility] Work Phone: RBC Ql (U) 10-25 SEEN /hpf [facility] Work Phone: Urine clarityon 11-30-2021 Clarity (U) Clear Clear [facility] Work Phone: Urine color determinationon 11-30-2021 Color (U) Straw Yellow [facility] Work Phone: Urine glucose detectionon Glucose Ql (U) Normal mg/dl Normal [facility] Work Phone: Urine leukocyte esterase det ection by dipstickon 11-30-2021 Leukocyte esterase Test strip Ql (U) 500 /ul Negative [facility] Work Phone: Urine pHon 11-30-2021 pH (U) 6.5 [pH] [facility] Work Phone: Urine sediment bacteria coun t by microscopy (number/high power field)on 11-30-2021 Bacteria LM.HPF (Urine sed) [#/Area] 1 /[HPF] None Seen [facility] Work Phone: Urine specific gravity measu rementon 11-30-2021 Specific gravity (U) [Rel density] 1.005 [facility] Work Phone: Urobilinogen Auto test strip Ql (U)on 11-30-2021 Urobilinogen Ql (U) Normal mg/dl Normal [facility] Work Phone: Basophil percentageon 2021 WBC (Bld) [#/Vol] 9.6 10*3/uL 4.4-11.0 [facility] Work Phone: Blood erythrocytes count (nu mber/volume)on 11-09-2021 RBC (Bld) [#/Vol] 3.23 10*6/uL 4.2-5.4 [facility] Work Phone: Blood hemoglobin measurement (mass/volume)on 11-09-2021 Hemoglobin (Bld) [Mass/Vol] 9.9 g/dL 12.0-15.0 [facility] Work Phone: Blood platelet mean volumeon 11-09-2021 Platelet mean volume (Bld) [Entitic vol] 9.1 fL 6.2-12.0 [facility] Work Phone: Determination of erythrocyte mean corpuscular volume (MCV)on 11-09-2021 MCV (RBC) [Entitic vol] 90.7 fL 81-99 [facility] Work Phone: Hematocrit Auto (Bld) [Volum e fraction]on 11-09-2021 Hematocrit (Bld) [Volume fraction] 29.3 % 37-47 [facility] Work Phone: Laboratory - Hematology and Cell countson 11-09-2021 Erythrocyte distribution width (RBC) [Entitic vol] 42.7 fL 35.1-43.9 [facility] Work Phone: Erythrocyte distribution width (RBC) [Ratio] 12.9 % 11.6-14.6 [facility] Work Phone: MCH (RBC) [Entitic mass] 30.7 pg 27.0-32.0 [facility] Work Phone: MCHC Auto (RBC) [Mass/Vol]on 11-09-2021 MCHC (RBC) [Mass/Vol] 33.8 g/dL 32-36 [facility] Work Phone: Platelets bldon 11-09-2021 Platelets (Bld) [#/Vol] 181 10*3/uL 150-450 [facility] Work Phone: Absolute lymphocyte counton 11-08-2021 Lymphocytes Auto (Unsp spec) [#/Vol] 1.14 10*3/uL 0.83-4.51 [facility] Work Phone: Basophil percentageon 2021 Basophils/100 WBC (Bld) 0.3 % 0-1 [facility] Work Phone: [phone] Eosinophils/100 WBC (Bld) 1.4 % 0-5 [facility] Work Phone: [phone] Neutrophils (Bld) [#/Vol] 5.7 10*3/uL 2.0-7.7 [facility] Work Phone: Neutrophils/100 WBC (Bld) 73.2 % 47-70 [facility] Work Phone: Blood lymphocytes/100 leukoc yteson 11-08-2021 Lymphocytes/100 WBC (Bld) 14.7 % 19-41 [facility] Work Phone: Blood monocytes/100 leukocyt eson 11-08-2021 Monocytes/100 WBC (Bld) 10.0 % 0-10 [facility] Work Phone: Laboratory - Hematology and Cell countson 11-08-2021 Immature granulocytes/100 WBC (Bld) 0.400 % 0.0-0.9 [facility] Work Phone: Comment on above: IG% - Immature Granu locytes (promyelocytes, myelocytes and metamyelocytes) > 1% indicates that a LEFT SHIFT is Present. Nucleated RBC/100 WBC (Bld) [Ratio] 0 % 0-5 [facility] Work Phone: URINE OB DIP B/Oon 2 Glucose Ql (U) Negative Neg mg/dL [facility] Protein.monoclonal (U) [Mass/Vol] Negative Neg mg/dL [facility] Absolute lymphocyte counton 10-25-2021 Lymphocytes Auto (Unsp spec) [#/Vol] 0.48 10*3/uL 0.83-4.51 [facility] Work Phone: Basophil percentageon 2021 Basophil percentage 0-5 SEEN /hpf [facility] Work Phone: [phone] Basophils/100 WBC (Bld) 0.1 % 0-1 [facility] Work Phone: [phone] Bilirubin [Mass/Vol] 0.40 mg/dL 0.20-1.00 [facility] Work Phone: Comment on above: For patients on eltr ombopag therapy, use of Dimension [place]chanin TBIL is not recommended. Chloride [Moles/Vol] 108 mmol/L 98-107 [facility] Work Phone: Eosinophils/100 WBC (Bld) 0.1 % 0-5 [facility] Work Phone: [phone] Glucose [Mass/Vol] 99 mg/dL 74-106 [facility] Work Phone: [phone] Neutrophils (Bld) [#/Vol] 6.4 10*3/uL 2.0-7.7 [facility] Work Phone: [phone] Neutrophils/100 WBC (Bld) 87.5 % 47-70 [facility] Work Phone: Potassium [Moles/Vol] 3.4 mmol/L 3.5-5.1 [facility] Work Phone: Protein [Mass/Vol] 6.6 g/dL 6.4-8.2 [facility] Work Phone: Sodium [Moles/Vol] 136 mmol/L 136-145 [facility] Work Phone: [phone] WBC (Bld) [#/Vol] 7.3 10*3/uL 4.4-11.0 [facility] Work Phone: [phone] Bilirubin Test strip Ql (U)o n 10-25-2021 Bilirubin Ql (U) Negative Negative [facility] Work Phone: Blood erythrocytes count (nu mber/volume)on 10-25-2021 RBC (Bld) [#/Vol] 3.92 10*6/uL 4.2-5.4 [facility] Work Phone: Blood hemoglobin measurement (mass/volume)on 10-25-2021 Hemoglobin (Bld) [Mass/Vol] 11.8 g/dL 12.0-15.0 [facility] Work Phone: Blood lymphocytes/100 leukoc yteson 10-25-2021 Lymphocytes/100 WBC (Bld) 6.6 % 19-41 [facility] Work Phone: Blood manual differential co mment interpretation (narrative result)on 10-25-2021 Manual differential comment Cesar (Bld) [Interp] SCANNED [facility] Work Phone: Comment on above: LYMPHOPENIA NOTED Blood monocytes/100 leukocyt eson 10-25-2021 Monocytes/100 WBC (Bld) 5.2 % 0-10 [facility] Work Phone: Blood platelet mean volumeon 10-25-2021 Platelet mean volume (Bld) [Entitic vol] 9.2 fL 6.2-12.0 [facility] Work Phone: Determination of erythrocyte mean corpuscular volume (MCV)on 10-25-2021 MCV (RBC) [Entitic vol] 88.3 fL 81-99 [facility] Work Phone: Hematocrit Auto (Bld) [Volum e fraction]on 10-25-2021 Hematocrit (Bld) [Volume fraction] 34.6 % 37-47 [facility] Work Phone: Ketones Test strip Ql (U)on 10-25-2021 Ketones Ql (U) 50 mg/dl Negative [facility] Work Phone: Laboratory - Chemistry and C hemistry - challengeon 10-25-2021 ALP [Catalytic activity/Vol] 88 U/L 45-117 [facility] Work Phone: ALT [Catalytic activity/Vol] 15 U/L 13-56 [facility] Work Phone: CO2 [Moles/Vol] 21.0 mmol/L 21.0-32.0 [facility] Work Phone: Globulin (S) [Mass/Vol] 4.0 g/dL 2.2-4.2 [facility] Work Phone: Urea nitrogen/Creatinine [Mass ratio] 9.0 mg/mg 10-20 [facility] Work Phone: Laboratory - Hematology and Cell countson 10-25-2021 Erythrocyte distribution width (RBC) [Entitic vol] 41.0 fL 35.1-43.9 [facility] Work Phone: Erythrocyte distribution width (RBC) [Ratio] 13.0 % 11.6-14.6 [facility] Work Phone: Immature granulocytes/100 WBC (Bld) 0.500 % 0.0-0.9 [facility] Work Phone: Comment on above: IG% - Immature Granu locytes (promyelocytes, myelocytes and metamyelocytes) > 1% indicates that a LEFT SHIFT is Present. MCH (RBC) [Entitic mass] 30.1 pg 27.0-32.0 [facility] Work Phone: Nucleated RBC/100 WBC (Bld) [Ratio] 0 % 0-5 [facility] Work Phone: MCHC Auto (RBC) [Mass/Vol]on 10-25-2021 MCHC (RBC) [Mass/Vol] 34.1 g/dL 32-36 [facility] Work Phone: Mucus LM Ql (Urine sed)on Mucus Ql (Urine sed) 0 SEEN /hpf [facility] Work Phone: Nitrite Test strip Ql (U)on 10-25-2021 Nitrite Ql (U) Negative Negative [facility] Work Phone: No Panel Informationon 10-25 Estimated Creatinine Clearance Calc 141.29 ml/min [facility] Work Phone: Estimated GFR (MDRD) Amer 167 mL/min >60 [facility] Work Phone: Comment on above: GFR Calc Estimated GFR (MDRD) Non-Af Amer 138 mL/min >60 [facility] Work Phone: Comment on above: Non- GFR Calc Platelets bldon 10-25-2021 Platelets (Bld) [#/Vol] 146 10*3/uL 150-450 [facility] Work Phone: Protein Test strip Ql (U)on 10-25-2021 Protein Ql (U) Negative Negative [facility] Work Phone: Serum or plasma albumin diane urement (mass/volume)on 10-25-2021 Albumin [Mass/Vol] 2.6 g/dL 3.2-5.0 [facility] Work Phone: Serum or plasma albumin/glob ulin mass ratioon 10-25-2021 Albumin/Globulin [Mass ratio] 0.6 {ratio} 0.9-2.4 [facility] Work Phone: Serum or plasma calcium diane urement (mass/volume)on 10-25-2021 Calcium [Mass/Vol] 8.7 mg/dL 8.5-10.1 [facility] Work Phone: Serum or plasma creatinine m easurement (mass/volume)on 10-25-2021 Creatinine [Mass/Vol] 0.55 mg/dL 0.55-1.02 [facility] Work Phone: Comment on above: The validity of the calculated GFR & GFRAA in patients over 70 years has not been determined. Clinical correlation is essential. Serum or plasma urea nitroge n measurement (mass/volume)on 10-25-2021 Urea nitrogen [Mass/Vol] 5 mg/dL 7-18 [facility] Work Phone: Squamous epithelial cells de tection in urine sediment by light microscopyon 10-25-2021 Epithelial cells.squamous LM Ql (Urine sed) 0 SEEN /hpf [facility] Work Phone: Thin prep Papanicolaou smear with manual screeningon 10-25-2021 Thin prep Papanicolaou smear with manual screening 12 U/L 15-37 [facility] Work Phone: Thin prep Papanicolaou smear with manual screening 7 5-15 [facility] Work Phone: URINE OB DIP B/Oon Glucose Ql (U) Negative Neg mg/dL [facility] Protein.monoclonal (U) [Mass/Vol] Negative Neg mg/dL [facility] Urine blood detectionon 10-01 RBC Ql (U) 25 /ul Negative [facility] Work Phone: RBC Ql (U) 0 SEEN /hpf [facility] Work Phone: Urine clarityon 10-25-2021 Clarity (U) Clear Clear [facility] Work Phone: Urine color determinationon 10-25-2021 Color (U) Yellow Yellow [facility] Work Phone: Urine glucose detectionon Glucose Ql (U) Normal mg/dl Normal [facility] Work Phone: Urine leukocyte esterase det ection by dipstickon 10-25-2021 Leukocyte esterase Test strip Ql (U) Negative Negative [facility] Work Phone: Urine pHon 10-25-2021 pH (U) 7.0 [pH] [facility] Work Phone: Urine sediment bacteria coun t by microscopy (number/high power field)on 10-25-2021 Bacteria LM.HPF (Urine sed) [#/Area] 1 /[HPF] None Seen [facility] Work Phone: Urine specific gravity measu rementon 10-25-2021 Specific gravity (U) [Rel density] 1.010 [facility] Work Phone: Urobilinogen Auto test strip Ql (U)on 10-25-2021 Urobilinogen Ql (U) Normal mg/dl Normal [facility] Work Phone: [phone] OBSTETRIC ULTRASOUND WHIon 0 10-19-2021 [facility] URINE OB DIP B/Oon 2 Glucose Ql (U) Negative Neg mg/dL [facility] Protein.monoclonal (U) [Mass/Vol] Negative Neg mg/dL [facility] URINE OB DIP B/Oon 2 Glucose Ql (U) Negative Neg mg/dL [facility] Protein.monoclonal (U) [Mass/Vol] Negative Neg mg/dL [facility] Absolute lymphocyte counton 08-22-2021 Lymphocytes Auto (Unsp spec) [#/Vol] 0.94 10*3/uL 0.83-4.51 [facility] Work Phone: [phone] Basophil percentageon 2021 Basophils/100 WBC (Bld) 0.2 % 0-1 [facility] Work Phone: Bilirubin [Mass/Vol] 0.30 mg/dL 0.20-1.00 [facility] Work Phone: [phone] Comment on above: For patients on eltr ombopag therapy, use of Dimension [place] TBIL is not recommended. Chloride [Moles/Vol] 107 mmol/L 98-107 [facility] Work Phone: [phone] Eosinophils/100 WBC (Bld) 1.0 % 0-5 [facility] Work Phone: Glucose [Mass/Vol] 77 mg/dL 74-106 [facility] Work Phone: [phone] Neutrophils (Bld) [#/Vol] 7.3 10*3/uL 2.0-7.7 [facility] Work Phone: [phone] Neutrophils/100 WBC (Bld) 78.7 % 47-70 [facility] Work Phone: [phone] Potassium [Moles/Vol] 3.7 mmol/L 3.5-5.1 [facility] Work Phone: [phone] Protein [Mass/Vol] 6.4 g/dL 6.4-8.2 [facility] Work Phone: Sodium [Moles/Vol] 138 mmol/L 136-145 [facility] Work Phone: WBC (Bld) [#/Vol] 9.3 10*3/uL 4.4-11.0 [facility] Work Phone: Basophil percentage 0 SEEN [facility]: Bilirubin Test strip Ql (U)o n 08-22-2021 Bilirubin Ql (U) Negative Negative [facility] Work Phone: Blood erythrocytes count (nu mber/volume)on 08-22-2021 RBC (Bld) [#/Vol] 3.60 10*6/uL 4.2-5.[facility]: Blood hemoglobin measurement (mass/volume)on 08-22-2021 Hemoglobin (Bld) [Mass/Vol] 11.3 g/dL 12.0-15.0 [facility] Work Phone: Blood lymphocytes/100 leukoc yteson 08-22-2021 Lymphocytes/100 WBC (Bld) 10.1 % 19-41 [facility] Work Phone: Blood monocytes/100 leukocyt eson 08-22-2021 Monocytes/100 WBC (Bld) 9.6 % 0-10 [facility] Work Phone: Blood platelet mean volumeon 08-22-2021 Platelet mean volume (Bld) [Entitic vol] 9.2 fL 6.2-12.0 [facility] Work Phone: Determination of erythrocyte mean corpuscular volume (MCV)on 08-22-2021 MCV (RBC) [Entitic vol] 91.7 fL 81-99 [facility] Work Phone: Hematocrit Auto (Bld) [Volum e fraction]on 08-22-2021 Hematocrit (Bld) [Volume fraction] 33.0 % 37-47 [facility] Work Phone: Ketones Test strip Ql (U)on 08-22-2021 Ketones Ql (U) Negative Negative [facility] Work Phone: Laboratory - Chemistry and C hemistry - challengeon 08-22-2021 ALP [Catalytic activity/Vol] 59 U/L 45-117 [facility] Work Phone: ALT [Catalytic activity/Vol] 11 U/L 13-56 [facility] Work Phone: CO2 [Moles/Vol] 27.0 mmol/L 21.0-32.0 [facility] Work Phone: Globulin (S) [Mass/Vol] 3.8 g/dL 2.2-4.2 [facility] Work Phone: Urea nitrogen/Creatinine [Mass ratio] 7.6 mg/mg 10-20 [facility] Work Phone: Laboratory - Hematology and Cell countson 08-22-2021 Erythrocyte distribution width (RBC) [Entitic vol] 42.0 fL 35.1-43.9 [facility] Work Phone: Erythrocyte distribution width (RBC) [Ratio] 12.6 % 11.6-14.6 [facility] Work Phone: Immature granulocytes/100 WBC (Bld) 0.400 % 0.0-0.9 [facility] Work Phone: Comment on above: IG% - Immature Granu locytes (promyelocytes, myelocytes and metamyelocytes) > 1% indicates that a LEFT SHIFT is Present. MCH (RBC) [Entitic mass] 31.4 pg 27.0-32.0 [facility] Work Phone: Nucleated RBC/100 WBC (Bld) [Ratio] 0 % 0-5 [facility] Work Phone: MCHC Auto (RBC) [Mass/Vol]on 08-22-2021 MCHC (RBC) [Mass/Vol] 34.2 g/dL 32-36 [facility] Work Phone: Mucus LM Ql (Urine sed)on Mucus Ql (Urine sed) 0 SEEN /hpf [facility] Work Phone: Nitrite Test strip Ql (U)on 08-22-2021 Nitrite Ql (U) Negative Negative [facility] Work Phone: No Panel Informationon 08-22 Estimated Creatinine Clearance Calc 74.67 ml/min [facility] Work Phone: Estimated GFR (MDRD) Amer 80 mL/min >60 [facility] Work Phone: Comment on above: GFR Calc Estimated GFR (MDRD) Non-Af Amer 66 mL/min >60 [facility] Work Phone: Comment on above: Non- GFR Calc Platelets bldon 08-22-2021 Platelets (Bld) [#/Vol] 180 10*3/uL 150-450 [facility] Work Phone: Protein Test strip Ql (U)on 08-22-2021 Protein Ql (U) Negative Negative [facility] Work Phone: Serum or plasma albumin diane urement (mass/volume)on 08-22-2021 Albumin [Mass/Vol] 2.6 g/dL 3.2-5.0 [facility] Work Phone: Serum or plasma albumin/glob ulin mass ratioon 08-22-2021 Albumin/Globulin [Mass ratio] 0.7 {ratio} 0.9-2.4 [facility] Work Phone: Serum or plasma calcium diane urement (mass/volume)on 08-22-2021 Calcium [Mass/Vol] 8.5 mg/dL 8.5-10.1 [facility] Work Phone: Serum or plasma creatinine m easurement (mass/volume)on 08-22-2021 Creatinine [Mass/Vol] 1.05 mg/dL 0.55-1.02 [facility] Work Phone: Comment on above: The validity of the calculated GFR & GFRAA in patients over 70 years has not been determined. Clinical correlation is essential. Serum or plasma urea nitroge n measurement (mass/volume)on 08-22-2021 Urea nitrogen [Mass/Vol] 8 mg/dL 7-18 [facility] Work Phone: Squamous epithelial cells de tection in urine sediment by light microscopyon 08-22-2021 Epithelial cells.squamous LM Ql (Urine sed) 0-5 SEEN /hpf [facility] Work Phone: Thin prep Papanicolaou smear with manual screeningon 08-22-2021 Thin prep Papanicolaou smear with manual screening 11 U/L 15-37 [facility] Work Phone: Thin prep Papanicolaou smear with manual screening 4 5-15 [facility] Work Phone: Urine blood detectionon - RBC Ql (U) Negative Negative [facility] Work Phone: RBC Ql (U) 0 SEEN /hpf [facility] Work Phone: Urine clarityon 08-22-2021 Clarity (U) Sl. Cloudy Clear [facility] Work Phone: Urine color determinationon 08-22-2021 Color (U) Yellow Yellow [facility] Work Phone: Urine glucose detectionon Glucose Ql (U) Normal mg/dl Normal [facility] Work Phone: Urine leukocyte esterase det ection by dipstickon 08-22-2021 Leukocyte esterase Test strip Ql (U) Negative Negative [facility] Work Phone: Urine pHon 08-22-2021 pH (U) 7.0 [pH] [facility] Work Phone: Urine sediment bacteria coun t by microscopy (number/high power field)on 08-22-2021 Bacteria LM.HPF (Urine sed) [#/Area] 0 /[HPF] None Seen [facility] Work Phone: Urine specific gravity measu rementon 08-22-2021 Specific gravity (U) [Rel density] 1.005 [facility] Work Phone: [phone] Urobilinogen Auto test strip Ql (U)on 08-22-2021 Urobilinogen Ql (U) Normal mg/dl [facility] Work [facility]: [phone] Absolute lymphocyte counton 08-15-2021 Lymphocytes Auto (Unsp spec) [#/Vol] 0.92 10*3/uL 0.83-4.51 [facility] Work Phone: [phone] Basophil percentageon 2021 Basophils/100 WBC (Bld) 0.2 % 0-1 [facility] Work Phone: [phone] Eosinophils/100 WBC (Bld) 1.2 % 0-5 [facility] Work Phone: Neutrophils (Bld) [#/Vol] 10.2 10*3/uL 2.0-7.7 [facility] Work Phone: [phone] Neutrophils/100 WBC (Bld) 85.6 % 47-70 [facility] Work Phone: [phone] WBC (Bld) [#/Vol] 11.9 10*3/uL 4.4-11.0 [facility] Work Phone: Blood erythrocytes count (nu mber/volume)on 08-15-2021 RBC (Bld) [#/Vol] 3.73 10*6/uL 4.2-5.4 [facility] Work Phone: [phone] Blood hemoglobin measurement (mass/volume)on 08-15-2021 Hemoglobin (Bld) [Mass/Vol] 11.6 g/dL 12.0-15.0 [facility] Work Phone: [phone] Blood lymphocytes/100 leukoc yteson 08-15-2021 Lymphocytes/100 WBC (Bld) 7.8 % 19-41 [facility] Work Phone: [phone] Blood monocytes/100 leukocyt eson 08-15-2021 Monocytes/100 WBC (Bld) 4.9 % 0-10 [facility] Work Phone: Blood platelet mean volumeon 08-15-2021 Platelet mean volume (Bld) [Entitic vol] 9.2 fL 6.2-12.0 [facility] Work Phone: Determination of erythrocyte mean corpuscular volume (MCV)on 08-15-2021 MCV (RBC) [Entitic vol] 90.3 fL 81-99 [facility] Work Phone: Gestational diabetes screen 1-hour screen with 50g oral glucose loadon 08-15-2021 Glucose 1 Hr post 50 g glucose PO [Mass/Vol] 96 mg/dL 70-140 [facility] Work Phone: Hematocrit Auto (Bld) [Volum e fraction]on 08-15-2021 Hematocrit (Bld) [Volume fraction] 33.7 % 37-47 [facility] Work Phone: Laboratory - Hematology and Cell countson 08-15-2021 Erythrocyte distribution width (RBC) [Entitic vol] 41.7 fL 35.1-43.9 [facility] Work Phone: Erythrocyte distribution width (RBC) [Ratio] 12.7 % 11.6-14.6 [facility] Work Phone: Immature granulocytes/100 WBC (Bld) 0.300 % 0.0-0.9 [facility] Work Phone: Comment on above: IG% - Immature Granu locytes (promyelocytes, myelocytes and metamyelocytes) > 1% indicates that a LEFT SHIFT is Present. MCH (RBC) [Entitic mass] 31.1 pg 27.0-32.0 [facility] Work Phone: Nucleated RBC/100 WBC (Bld) [Ratio] 0 % 0-5 [facility] Work Phone: MCHC Auto (RBC) [Mass/Vol]on 08-15-2021 MCHC (RBC) [Mass/Vol] 34.4 g/dL 32-36 [facility] Work Phone: Platelets bldon 08-15-2021 Platelets (Bld) [#/Vol] 164 10*3/uL 150-450 [facility] Work Phone: Serum Treponema species anti body detectionon 08-15-2021 Treponema sp Ab Ql (S) Non-Reactive [facility] Work Phone: Type and Scr,Prenatlon 04-29 ABO/RH(D) Positive Normal [facility] Vital Signs Date Time Vital Sign Value Performing Clinician Facility 03-17-2025 11:44-0400 Body height 167.[address] Nicci Costello MD Work Phone: [facility] 03-17-2025 11:44-0400 Body mass index (BMI) [Ratio] 28.2 kg/m2 Dr. Nicci Costello MD Work Phone: [facility] 03-17-2025 11:44-0400 Body weight 79.[address] Nicci Costello MD Work Phone: [facility] 03-17-2025 11:44-0400 Diastolic blood pressure 81 mm[Hg] Dr. Nicci Costelol MD Work Phone: [facility] 03-17-2025 11:44-0400 Heart rate 67 /min Dr. Nicci Costello MD Work Phone: [facility] 03-17-2025 11:44-0400 Systolic blood pressure 134 mm[Hg] Dr. Nicci Costello MD Work Phone: [facility] 03-19-2023 14:31-0400 Body height 167.6 cm Cyndie Luz MD Work Phone: [facility] 03-19-2023 14:31-0400 Body weight 81.65 kg Cyndie Luz MD Work Phone: [facility] 03-19-2023 14:31-0400 Diastolic blood pressure 62 mm[Hg] Cnydie Luz MD Work Phone: [facility] 03-19-2023 14:31-0400 Systolic blood pressure 108 mm[Hg] Cyndie Luz MD Work Phone: [facility] 10-19-2022 13:48-0400 Body temperature 98.6 [degF] [facility] 10-19-2022 13:48-0400 Diastolic blood pressure 58 mm[Hg] [facility] 10-19-2022 13:48-0400 Heart rate 68 /min [facility] 10-19-2022 13:48-0400 Respiratory rate 16 /min [facility] 10-19-2022 13:48-0400 SaO2% (BldA) [Mass fraction] 100 % [facility] 10-19-2022 13:48-0400 Systolic blood pressure 114 mm[Hg] [facility] 10-19-2022 10:41-0400 Body height 167.64 cm [facility] 10-19-2022 10:41-0400 Body mass index (BMI) [Ratio] 29.2 kg/m2 [facility] 10-19-2022 10:41-0400 Body weight 82 kg [facility] 12-26-2021 16:20-0400 Body weight 84.37 kg Cyndie Luz MD Work Phone: [facility] 12-26-2021 16:20-0400 Diastolic blood pressure 56 mm[Hg] Cyndie Luz MD Work Phone: [facility] 12-26-2021 16:20-0400 Systolic blood pressure 98 mm[Hg] Cyndie Luz MD Work Phone: [facility] 12-01-2021 00:07-0400 Diastolic blood pressure 67 mm[Hg] [facility] Work Phone: 12-01-2021 00:07-0400 Heart rate 84 /min [facility] Work Phone: 12-01-2021 00:07-0400 Respiratory rate 16 /min [facility] Work Phone: 12-01-2021 00:07-0400 SaO2% (BldA) [Mass fraction] 94 % [facility] Work Phone: 12-01-2021 00:07-0400 Systolic blood pressure 114 mm[Hg] [facility] Work Phone: 11-30-2021 20:39-0400 Body height 167.64 cm [facility] Work Phone: 11-30-2021 20:39-0400 Body mass index (BMI) [Ratio] 31.6 kg/m2 [facility] Work Phone: 11-30-2021 20:39-0400 Body temperature 100.7 [degF] [facility] Work Phone: 11-30-2021 20:39-0400 Body weight 89 kg [facility] Work Phone: 11-09-2021 16:05-0400 Body temperature 97.6 [degF] [facility] Work Phone: 11-09-2021 16:05-0400 Diastolic blood pressure 68 mm[Hg] [facility] Work Phone: 11-09-2021 16:05-0400 Heart rate 62 /min [facility] Work Phone: 11-09-2021 16:05-0400 Respiratory rate 17 /min [facility] Work Phone: 11-09-2021 16:05-0400 Systolic blood pressure 114 mm[Hg] [facility] Work Phone: 11-09-2021 04:08-0400 SaO2% (BldA) [Mass fraction] 96 % [facility] Work Phone: 11-08-2021 10:40-0400 Body height 167.64 cm [facility] Work Phone: 11-08-2021 10:40-0400 Body mass index (BMI) [Ratio] 34.2 kg/m2 [facility] Work Phone: 11-08-2021 10:40-0400 Body weight 96.3 kg [facility] Work Phone: 11-01-2021 16:04-0400 Body weight 97.52 kg Cyndie Luz MD Work Phone: [facility] 11-01-2021 16:04-0400 Diastolic blood pressure 64 mm[Hg] Cyndie Luz MD Work Phone: [facility] 11-01-2021 16:04-0400 Systolic blood pressure 116 mm[Hg] Cyndie Luz MD Work Phone: [facility] 10-25-2021 20:13-0400 Diastolic blood pressure 62 mm[Hg] [facility] Work Phone: 10-25-2021 20:13-0400 Heart rate 85 /min [facility] Work Phone: 10-25-2021 20:13-0400 Respiratory rate 16 /min [facility] Work Phone: 10-25-2021 20:13-0400 SaO2% (BldA) [Mass fraction] 98 % [facility] Work Phone: 10-25-2021 20:13-0400 Systolic blood pressure 107 mm[Hg] [facility] Work Phone: 10-25-2021 18:42-0400 Body height 167.64 cm [facility] Work Phone: 10-25-2021 18:42-0400 Body mass index (BMI) [Ratio] 34.3 kg/m2 [facility] Work Phone: 10-25-2021 18:42-0400 Body temperature 97.3 [degF] [facility] Work Phone: 10-25-2021 18:42-0400 Body weight 96.6 kg [facility] Work Phone: 10-25-2021 14:34-0400 Body weight 97.07 kg Cyndie Luz MD Work Phone: [facility] 10-25-2021 14:34-0400 Diastolic blood pressure 68 mm[Hg] Cyndie Luz MD Work Phone: [facility] 10-25-2021 14:34-0400 Systolic blood pressure 126 mm[Hg] Cyndie Luz MD Work Phone: [facility] 10-19-2021 13:45-0400 Body weight 96.62 kg Cyndie Luz MD Work Phone: [facility] 10-19-2021 13:45-0400 Diastolic blood pressure 64 mm[Hg] Cyndie Luz MD Work Phone: [facility] 10-19-2021 13:45-0400 Systolic blood pressure 120 mm[Hg] Cyndie Luz MD Work Phone: [facility] 10-03-2021 16:29-0400 Body weight 94.35 kg Cyndie Luz MD Work Phone: [facility] 10-03-2021 16:29-0400 Diastolic blood pressure 64 mm[Hg] Cyndie Luz MD Work Phone: [facility] 10-03-2021 16:29-0400 Systolic blood pressure 110 mm[Hg] Cyndie Luz MD Work Phone: [facility] 08-22-2021 19:43-0500 SaO2% (BldA) [Mass fraction] 96 % [facility] Work Phone: 08-22-2021 19:41-0500 Diastolic blood pressure 65 mm[Hg] [facility] Work Phone: 08-22-2021 19:41-0500 Heart rate 76 /min [facility] Work Phone: 08-22-2021 19:41-0500 Respiratory rate 16 /min [facility] Work Phone: 08-22-2021 19:41-0500 Systolic blood pressure 106 mm[Hg] [facility] Work Phone: 08-22-2021 15:29-0500 Body mass index (BMI) [Ratio] 32.5 kg/m2 [facility] Work Phone: 08-22-2021 15:29-0500 Body temperature 96.9 [degF] [facility] Work Phone: 08-22-2021 15:29-0500 Body weight 91.6 kg [facility] Work Phone: Encounters Encounter Date Encounter Type Care Provider Facility Start: 05-06-2025 End: 05-06-2025 ambulatory NICCI COSTELLO Facility:[facility] Start: 05-06-2025 Encounter for gynecological examination (general) (routine) without abnormal findings CYNDIE LUZ [facility] Start: 03-30-2025 End: 03-30-[address] Nicci Costello MD Work Phone: -Cardiovascular Services Start: 03-30-2025 End: 03-30-[address] Etta Lainez MD -Cardiovascular Services Work Phone: Start: 03-30-2025 End: 03-30-2025 ambulatory Etta Lainez Facility:[facility] Start: 03-19-2025 End: 03-19-[address] Nicci Costello MD Work Phone: -Cat Scan [facility] Start: 03-19-2025 End: 03-19-[address] Shira Domingo MD -Cat Scan [facility] Work Phone: Start: 03-19-2025 End: 03-19-2025 ambulatory Shira Domingo Facility:[facility] Start: 03-17-2025 End: 03-17-[address] Shira Domingo MD -[facility] Work Phone: Start: 03-17-2025 End: 03-17-[address] Nicci Costello MD Work Phone: -[facility] Start: 03-16-2025 Registered Referred HEALTH RIS K ASSESSMENT -Employee Health Start: 03-16-2025 ambulatory Health Risk Assessment Facility:[facility] Start: 12-30-2024 End: 12-30-[address] NICCI COSTELLO MD Facility:[facility] Start: 12-30-2024 End: 12-30-2024 Patient encounter procedure ETTA LAINEZ MD [facility] Start: 12-30-2024 Non-patient / Non-visit Dr. Shira brito MD -[facility] Work Phone: Start: 08-13-2024 ambulatory Etta Lainez Facility :[facility] Start: 08-12-2024 ambulatory ETTA LAINEZ Facility:[facility] Start: 06-26-2024 End: 06-26-2024 ambulatory Etta Lainez Facility:[facility] Start: 03-19-2023 End: 03-19-2023 Patient encounter procedure Cyndie Luz MD Work Phone: OB/Gynecology Comment on above: Encounter for gyneco logical examination (general) (routine) without abnormal findings (Primary Dx); Screening for cervical cancer; Encounter for screening for human papillomavirus (HPV) Start: 03-19-2023 End: 03-19-2023 Patient encounter status Cyndie Luz MD Work Phone: [facility] Start: 10-19-2022 End: 10-19-2022 Admission to same day surgery center [facility]-S[facility] Day Care Start: 10-19-2022 End: 10-19-2022 ambulatory [facility] Work Phone: Start: 09-18-2022 End: 09-18-2022 ambulatory [facility] Work Phone: Start: 09-18-2022 End: 09-18-2022 Patient encounter procedure [facility] [place] Start: 07-17-2022 ambulatory Cyndie Luz MD Work Phone: OB/Gynecology Comment on above: Sprintec contr ol Start: 02-10-2022 ambulatory Cyndie Luz MD Work Phone: OB/Gynecology Comment on above: Yearly exam Start: 12-26-2021 End: 12-26-2021 Patient encounter procedure Cyndie Luz MD Work Phone: OB/Gynecology Comment on above: care and examination (Primary Dx) Start: 11-30-2021 End: 12-01-2021 Emergency department patient visit [facility]-Emergency Department Start: 11-29-2021 End: 11-29-2021 Patient encounter procedure [facility]-Cat Scan, [facility] Start: 11-25-2021 Telephone encounter Eufemia johnson MD Work Phone: OB/Gynecology Comment on above: Breast Pump Start: 11-09-2021 ambulatory Cyndie Luz MD Work Phone: OB/Gynecology Comment on above: Ob Delivery Note Start: 11-08-2021 End: 11-09-2021 Evaluation and management of inpatient [facility] Start: 11-04-2021 End: 11-04-2021 Patient encounter procedure [facility]-Pulmonary Services/Neurology Start: 11-02-2021 MC Get Medical Advice Cyndie Luz MD Work Phone: OB/Gynecology Comment on above: COVID test order Start: 11-01-2021 End: 11-01-2021 Patient encounter procedure Cyndie Luz MD Work Phone: OB/Gynecology Comment on above: with histo ry of section, antepartum (Primary Dx); 38 weeks gestation of Start: 10-25-2021 End: 10-25-2021 Emergency department patient visit [facility]-Emergency Department Start: 10-25-2021 End: 10-25-2021 Patient encounter procedure Cyndie Luz MD Work Phone: OB/Gynecology Comment on above: Abdominal pain durin g in third trimester (Primary Dx); 37 weeks gestation of Start: 10-19-2021 End: 10-19-2021 Patient encounter procedure Mayelin Mars MD Work Phone: Maternal Medicine Comment on above: Suspected problem wi th growth not found (Primary Dx); 36 weeks gestation of with histo ry of section, antepartum (Primary Dx); 36 weeks gestation of Start: 10-03-2021 End: 10-03-2021 Patient encounter procedure Cyndie Luz MD Work Phone: OB/Gynecology Comment on above: Encounter for superv ision of other normal in third trimester (Primary Dx); History of section; 34 weeks gestation of Start: 10-03-2021 Telephone encounter Cyndie Luz MD Work Phone: OB/Gynecology Comment on above: Future Appointment Start: 08-22-2021 End: 08-22-2021 Emergency department patient visit [facility]-Emergency Department Start: 08-15-2021 End: 08-15-2021 Patient encounter procedure [facility]-Laboratory Start: 03-21-2021 Patient requested procedure Cyndie Luz MD Work Phone: [facility] Work Phone: Procedures Date Procedure Procedure Detail Performing Clinician Start: 03-19-2025 CT of abdomen and pelvis without contrast Dr. Nicci Costello MD Work Phone: Start: 03-16-2025 Serum inorganic phosphate measurement Dr. Nicci Costello MD Work Phone: Start: 03-16-2025 Urnls dip stick/tablet reagent auto microscopy Dr. Nicci Costello MD Work Phone: Start: 10-19-2022 Extracorporeal shockwave lithotripsy Start: 09-18-2022 Diagnostic radiography of abdomen Start: 11-30-2021 Pelvic echography Start: 11-30-2021 Plain chest X-ray Start: 11-30-2021 MRI of lumbar spine with contrast Start: 11-30-2021 SARS-CoV-2 & FLU Antigen (Rapid) Start: 11-29-2021 CT of abdomen and pelvis without contrast Start: 11-04-2021 End: 11-04-2021 Viral antigen assay Start: 11-01-2021 URINE OB DIP B/O Cyndie Luz MD Work Phone: Start: 10-25-2021 Computed tomography of abdomen and pelvis with intravenous contrast Start: 10-25-2021 URINE OB DIP B/O Cyndie Luz MD Work Phone: Start: 10-19-2021 URINE OB DIP B/O Cyndie Luz MD Work Phone: Start: 10-19-2021 Us preg uterus after 1st trimest / gestation Cyndie Luz MD Work Phone: Start: 10-03-2021 URINE OB DIP B/O Cyndie Luz MD Work Phone: Start: 08-22-2021 US urinary tract Start: 04-29-2021 Antibody screen H/O: section History of section Cyndie Luz MD Work Phone: H/O: section Status pos t repeat low transverse section Urine culture Plan of Treatment Date Care Activity Detail Author Start: 08-19-2031 Urine microalbumin profile [facility] Start: 04-19-2025 Pap Testing Pap Testing [facility] Start: 04-19-2023 PAP TESTING PAP TESTING [facility] Start: 03-02-2023 Influenza vaccination Influenza Vacc ine (#1) [facility] Start: 10-19-2022 [facility] Start: 2022 HPV Testing HPV Testing [facility] Start: 07-02-2022 DEPRESSION ASSESSMENT DEPRESSION ASS ESSMENT [facility] Start: 03-02-2022 Influenza vaccination INFLUENZA (#1) [facility] Start: 12-10-2021 COVID-19 VACCINE (3 - Booster for Pfizer series) COVID-19 VACCINE (3 - Booster for Pfizer series) [facility] Start: 11-30-2021 Bacteria identified in Blood by Culture Blood Culture [facility] Work Phone: Start: 11-08-2021 section Repeat C-Sect ion (Not Applicable) [facility] Work Phone: Start: 11-01-2021 End: 11-01-2022 SARS-CoV-2 (COVID-19) RNA [Presence] in Respiratory specimen by KEKE with probe detection PRE-PROCEDURE & PRE-OPERATIVE COVID Microbiology Routine 38 weeks gestation of Expected: 11/01/2021, Expires: 11/01/2022 [facility] Work Phone: Comment on above: Expected: 11/01/2021 , Expires: 11/01/2022 Start: 09-06-2021 COVID-19 VACCINE (3 - Booster for Pfizer series) COVID-19 VACCINE (3 - Booster for Pfizer series) [facility] Start: 09-06-2021 Covid-19 Vaccine (3 - Pfizer series) Covid-19 Vaccine (3 - Pfizer series) [facility] Start: 11-27-2016 HPV Vaccine (2 - 3-d ose series) HPV Vaccine (2 - 3-dose series) [facility] Start: 2004 Adult depression screening assessment DEPRESSION SCREENING [facility] CT Abdomen and Pelvi s WO contrast [facility] OBSTETRIC ULTRASOUND [facility]I OBSTETRIC ULTRASOUND [facility] Anc Imaging Routine 34 weeks gestation of History of section Ordered: 10/03/2021 [facility] Work Phone: Comment on above: Ordered: 10/03/2021 PAP TEST PAP TEST Lab Jaxon gandhi Screening for cervical cancer Encounter for screening for human papillomavirus (HPV) 03/19/2023 2:54 PM EDT [facility] Work Phone: Patient Education [facility] Work Phone: Patient referral [facility] Work Phone: ROUTINE, GR OUP B STREP PCR ROUTINE, GROUP B STREP PCR Microbiology Routine 36 weeks gestation of 10/19/2021 2:14 PM EDT [facility] Work Phone: [facility] Immunizations Immunization Date Immunization Notes Care Provider [facility] 05-26-2024 influenza, seasonal, injectable, preservative free Dr. Nicci Costello MD Work Phone: [facility] 05-07-2023 influenza, injectabl e, quadrivalent, preservative free Dr. Nicci Costello MD Work Phone: [facility] 05-17-2022 influenza, injectabl e, quadrivalent, preservative free Dr. Nicci Costello MD Work Phone: [facility] 05-17-2022 influenza, seasonal, injectable [facility] 05-17-2022 influenza virus vaccine, unspecified formulation Cyndie Luz MD Work Phone: [facility] 08-19-2021 Diphtheria, tetanus toxoids and acellular pertussis vaccine, and poliovirus vaccine, inactivated [facility] 08-19-2021 tetanus toxoid, redu magda diphtheria toxoid, and acellular pertussis vaccine, adsorbed Cyndie Luz MD Work Phone: [facility] 06-21-2021 Covid (Pfizer) [facility] 05-04-2021 influenza, injectabl e, quadrivalent, preservative free Dr. Nicci Costello MD Work Phone: [facility] 05-04-2021 influenza, seasonal, injectable [facility] 05-04-2021 influenza, seasonal, injectable, preservative free Cyndie Luz MD Work Phone: [facility] Work Phone: 04-19-2020 influenza, injectabl e, quadrivalent, contains preservative Cyndie Luz MD Work Phone: [facility] 03-14-2020 measles, mumps and rubella virus vaccine [facility] 01-09-2020 tetanus toxoid, redu magda diphtheria toxoid, and acellular pertussis vaccine, adsorbed Cyndie Luz MD Work Phone: [facility] 04-22-2019 influenza, injectabl e, quadrivalent, preservative free Dr. Nicci Costello MD Work Phone: [facility] 04-22-2019 influenza, seasonal, injectable [facility] 02-27-2019 tetanus toxoid, redu magda diphtheria toxoid, and acellular pertussis vaccine, adsorbed Cyndie Luz MD Work Phone: [facility] Work Phone: 05-06-2018 influenza, injectabl e, quadrivalent, preservative free Dr. Nicci Costello MD Work Phone: [facility] 05-06-2018 influenza, seasonal, injectable [facility] 05-30-2017 influenza, injectabl e, quadrivalent, preservative free Dr. Nicci Costello MD Work Phone: [facility] 05-30-2017 influenza, seasonal, injectable [facility] 03-31-2016 influenza, injectabl e, quadrivalent, preservative free Dr. Nicci Costello MD Work Phone: [facility] 03-31-2016 influenza, seasonal, injectable [facility] 09-23-2015 influenza, injectabl e, quadrivalent, preservative free Dr. Nicci Costello MD Work Phone: [facility] 09-23-2015 influenza, seasonal, injectable [facility] 10-23-2006 Meningococcal, MCV4, unspecified conjugate formulation(groups A, C, Y and W-135) Cyndie Luz MD Work Phone: [facility] Work Phone: 09-29-2004 tetanus and diphther ia toxoids, adsorbed, preservative free, for adult use (2 Lf of tetanus toxoid and 2 Lf of diphtheria toxoid) Cyndie Luz MD Work Phone: [facility] 10-19-2003 measles, mumps and rubella virus vaccine Cyndie Luz MD Work Phone: [facility] 10-26-1997 diphtheria, tetanus toxoids and acellular pertussis vaccine Cyndie Luz MD Work Phone: [facility] 10-26-1997 trivalent poliovirus vaccine, live, oral Cyndie Luz MD Work Phone: [facility] 09-30-1996 Chicken Pox (disease) Cyndie Luz MD Work Phone: [facility] Work Phone: 03-31-1994 diphtheria, tetanus toxoids and acellular pertussis vaccine Cyndie Luz MD Work Phone: [facility] 03-31-1994 trivalent poliovirus vaccine, live, oral Cyndie Luz MD Work Phone: [facility] 12-30-1993 haemophilus influenz ae type b vaccine, HbOC conjugate Cyndie Luz MD Work Phone: [facility] 12-30-1993 measles, mumps and rubella virus vaccine Cyndie Luz MD Work Phone: [facility] 1993 hepatitis B vaccine, pediatric or pediatric/adolescent dosage Cyndie Luz MD Work Phone: [facility] 04-11-1993 DTP-Haemophilus influenzae type b conjugate vaccine Cyndie Luz MD Work Phone: [facility] 04-11-1993 Tetramune Cyndie Luz MD Work Phone: [facility] 01-28-1993 DTP-Haemophilus influenzae type b conjugate vaccine Cyndie Luz MD Work Phone: [facility] 01-28-1993 Tetramune Cyndie Luz MD Work Phone: [facility] 01-28-1993 trivalent poliovirus vaccine, live, oral Cyndie Luz MD Work Phone: [facility] 1992 DTP-Haemophilus influenzae type b conjugate vaccine Cyndie Luz MD Work Phone: [facility] 1992 Tetramune Cyndie Luz MD Work Phone: [facility] 1992 trivalent poliovirus vaccine, live, oral Cyndie Luz MD Work Phone: [facility] 1992 hepatitis B vaccine, pediatric or pediatric/adolescent dosage Cyndie Luz MD Work Phone: [facility] 1992 hepatitis B vaccine, pediatric or pediatric/adolescent dosage Cyndie Luz MD Work Phone: [facility] Payers Date Payer Category Payer Self-pay [id number] 2022 Private Health Insurance [id number] 2022 Unknown [id number] 2019 Unknown [id number] 2019 Unknown MMO MMO TPA [id number] 2019-Present [address] [place] [address] PPO [id number] 1992 Unknown [id number] 1992 Unknown [id number] Private Health Insurance [id number] Unknown [id number] Unknown [id number] Unknown [id number] 2 Unknown [id number] 2 Unknown [id number] 2 Unknown [id number] 2 Unknown [id number] 2 Unknown [id number] Social History Date Type Detail Facility Start: 01-07-2014 End: 10-12-2022 Tobacco smoking status NHIS Never smoked tobacco [facility] Start: 09-02-2021 End: 03-19-2023 Alcohol intake Ex-drinker (finding) [facility] Start: 03-21-2021 History SDOH Alcohol Comment occasionally drinks [facility] Start: 08-25-2019 History SDOH Financial 5 [facility] Start: 08-25-2019 History SDOH Food Worry 1 [facility] Start: 08-25-2019 History SDOH Transport Med 2 [facility] Start: 08-25-2019 Education 16 [facility] Start: 02-20-2021 [facility] Start: 1990 Sex Assigned At Not on file [facility] Start: 09-06-2021 End: 11-30-2021 Exposure to SARS-CoV-2 (event) Not sure [facility] Start: 10-25-2021 End: 10-12-2022 Tobacco smoking status NHIS Unknown if ever smoked [facility] Start: 1990 Sex Assigned At Female [facility] Start: 01-07-2014 End: 03-19-2023 Tobacco use and exposure Smokeless tobacco non-user [facility] Start: 04-19-2020 End: 03-19-2023 History of Social function [facility] Work Phone: Start: 04-19-2020 End: 03-19-2023 Tobacco use panel [facility] Work Phone: How hard is it for you to pay for the very basics like food, housing, medical care, and heating Not hard at all [facility] Work Phone: (I/We) worried whether (my/our) food would run out before (I/we) got money to buy more. Never true [facility] Work Phone: Tobacco smoking status [facility] Start: 08-12-2024 Sex Female (finding) [facility] NEGATED: Highlighted row [facility] Goals Date Patient Goal Desired Activity /State Mental Status Date Assessment Result Facility 10-19-2022 Cognitive function Voice/Name [facility] Work Phone: 11-30-2021 Cognitive function Level Of Cons ciousness Awake;Alert;Appropriate;Follow s Commands [facility] Work Phone: 11-09-2021 Cognitive function Level Of Cons ciousness Awake;Alert;Appropriate [facility] Work Phone: 08-22-2021 Cognitive function Level Of Cons ciousness Awake;Alert;Appropriate [facility] Work Phone: Clinical Notes 08-25-2019 to 05-06-2025 Note Date & Type Note Facility 05-06-2025 Note HNO ID: [id number] Author: CYNDIE PETTY MD Service: ? 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 Enjoys camping. 2 kids ages 3/5. 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 Set Up Operator Thread History LMP: 04/17/2025 (Exact Date), Having periods Age at Menarche: Age at First : Age at Menopause: Grinder Set Up Operator Thread History Comments: Sexual Activity: Yes; Male Contraception: No contraception data on record PAST MEDICAL HISTORY Diagnosis Date Dermoid cyst fracture right wrist-roller skating Infertility, female PMH - PAST MEDICAL HISTORY OF color vision normal PMH - PAST MEDICAL HISTORY OF varicella at age 6 years PMH - PAST MEDICAL HISTORY OF 10/03 fractured right wrist PMH - PAST MEDICAL HISTORY OF bilateral kidney reflux surgery @ 7 years of age PAST SURGICAL HISTORY Procedure Laterality Date DELIVERY ONLY 11/08/2021 LTCS DELIVERY ONLY 03/13/2020 LITHROTRIPSY 09/2022 OOPHORECTOMY PARTIAL/TOTAL UNI/BI 12/2018 left ovary for dermoid cyst URETEROPLASTY PLASTIC OPERATION URETER FAMILY HISTORY Problem Relation Age of Onset No Known Problems Mother other (anemia) Father other (PCOS) Sister No Known Problems Sister No Known Problems Maternal Grandmother Heart Maternal Grandfather No Known Problems Paternal Grandmother Heart Paternal Grandfather Diabetes Other maternal side No Known Problems Son SOCIAL HISTORY Social History Tobacco Use Smoking status: Never Smokeless tobacco: Never Vaping Use Vaping status: Never Used Substance Use Topics Alcohol use: Not Currently Comment: occasionally drinks Drug use: No REVIEW OF SYSTEMS Abdomen: No abdominal pain, nausea, vomiting, diarrhea, or constipation. No bloating, early satiety, indigestion, or increased flatulence. Bladder: No dysuria, gross hematuria, urinary frequency, urinary urgency, or incontinence. Breast: No breast lumps, nipple d/c, overlying skin changes, redness or skin retraction. Allergies and current medication updated:Yes SENSITIVE EXAM: The sensitive examination was discussed with the Patient or Patient's Authorized Employee Communications Coordinator. As applicable, any other physician, advance practice provider, medical student, or other health professional student that will be observing or involved in the sensitive examination for educational or training purposes was discussed with the Patient or Authorized Employee Communications Coordinator. The Patient or Authorized Employee Communications Coordinator has agreed to proceed with the sensitive examination. (Sensitive examination includes inspection and/or palpation of the breasts, pelvis, prostate and anorectal regions). EXAM: BP 108/74 Ht 5' 5.5 (1.66m) Wt 185 lb (83.9kg) LMP 04/17/2025 BMI 30.31 kg/(m2). GENERAL: pleasant, female in no apparent distress HEENT: Normocephalic, atraumatic, mucus membranes moist, and no lesions NECK: Supple, full range of motion, no adenopathy, and thyroid normal DERMATOLOGY: Normal, without lesions, non-icteric, and non-hirsute BREAST: soft, non-tender, symmetric, no dominant mass, normal nipple-areolar complex, no lymphadenopathy, and no nipple discharge CHEST: Normal inspiratory effort ABDOMEN: soft, non-tender, and no masses PELVIC: external genitalia normal, normal Bartholin's glands, urethra, Jenison's glands, no vulvar lesions, no cervical lesions, good vaginal support, physiologic discharge present, normal appearing perineal body and perianal region. Labia minora agglutination to labia majora. No ulcerations BIMANUAL: uterus normal size, shape and consistency, no adnexal masses, and non-tender RECTOVAGINAL: deferred. NEURO: alert and oriented x3,exam grossly non-focal EXTREMITIES: normal ASSESSMENT/PLAN: 1) Health maintenance: Pap/HPV up to date. Nutrition, exercise and routine health maintenance exams reviewed. Colon cancer screening: start at age 45 2) Contraception: condoms. Contraceptive options reviewed and information provided. 3) STD screening: Declined STI check. 4) Follow up one year or sooner as needed 5) vulvitis - clobetasol ordered- proper use reviewed Cyndie Fontenot MD [facility] 03-19-2025 Radiology Diagnostic study note [facility] Imaging Services [address] [place] [address] Abdomen/Pelvis without Cont MR#: [id number] Acct: [id number] Name: TAMI STEVENS Rep #: [id number] : 1990 F 34 From: Leilani Lorenzana MD PCP: Dr. Clarke Chávez MD Status: REG C LI Study:Abdomen/Pelvis without Cont Date of Exa m: 03/19/25 Exam# [id number] Ordering Dr: Shira Domingo MD PROCEDURE: ABDOMEN/PELVIS WITHOUT CONT 03/19/2025 REASON FOR EXAM: STONES, BACK PAIN TECHNIQUE: Procedure Code: CTABDPEL Modality: CT Procedure: ABDOMEN/PELVIS WITHOUT CONT Noncontrast technique limits evaluation of the abdominal and pelvic viscera. Coronal and Sagittal reconstruction series were provided. One or more dose reduction techniques were used (e.g., Automated exposure control, adjustment of the mA and/or kV according to patient size, use of iterative reconstruction technique). RADIATION DOSE SUMMARY: CTDlvol: 8.1 mGy DLP: 422 mGycm COMPARISON: None FINDINGS: Lung bases: Mild bibasilar atelectasis. Liver: Normal size. No obvious mass. Gallbladder: Unremarkable Spleen: Normal size. Pancreas: Normal size. No surrounding inflammation. Adrenals: Unremarkable Kidneys: There is small nonobstructing right lower pole renal calculus measuring3 mm. No right hydronephrosis. Small punctate 2 mm left midpole renal calculus. Mild left hydronephrosis. There is 5 mm calculus at left UVJ. Bladder: Bladder is distended with urine. Reproductive Organs: Unremarkable Bowel: Colonic diverticulosis without evidence of diverticulitis. Moderate stool burden. Appendix: The appendix is not identified. There is no inflammatory process identified in the right lower quadrant to suggest appendicitis. Lymph nodes: No suspicious lymph node enlargement. Vasculature: The abdominal aorta and IVC contours are normal. Noncontrast technique limits evaluation. Peritoneum / Retroperitoneum: Unremarkable Bones: Unremarkable CT/Abdomen/Pelvis without Cont IMPRESSION: There is small punctate 2 mm left midpole renal calculus with mild left hydronephrosis. Additionally there is 5 mm calculus at left UVJ. Small nonobstructing right lower pole renal calculus measuring 3 mm. Reading Location: [facility] CC: Dr. Shira Domingo MD; Dr. Clarke Chávez MD ~ Edging Machine Setter: Signed [facility] 03-17-2025 Evaluation note Diagnosis Onset Date Resolution Flank pain acute March 11:22am Kidney stones acute March 022024 11:22am Other specified disorders of bladder acute March 022024 11:22am Urge incontinence acute Septemb er 2024 11:22am UTI (urinary tract infection) acute March 17, 2025 11:22am [facility] Work Phone: [phone] Evaluation + Plan note Future Scheduled Tests Radiology* CT Venogram Abdomen and Pelvis 09/08/24 [facility] 09-18-2023 History of Present illness Narrative* Cyndie Petty MD - 03/19/2023 2:28 PM EDT Cnc Router Operator offered: Patient declinesTodd Garrett is a 32 year old who presents for an annual gynecologic exam without complaints. 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 Menses: cycles every 28 days and 5 days of flow. Contraception: condoms and natural family planning HPV vaccine: Yes Last Pap: 04/23/2020 normal HPV: N/A History of abnormal pap: No Last mammogram: normal Sexually active: Yes History of STDS: None Patient concerns for STD exposure: No. 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 Set Up Operator Thread History LMP: 03/09/2023 (Exact Date), Unknown Age at Menarche: Age at First : Age at Menopause: Grinder Set Up Operator Thread History Comments: Sexual Activity: Yes; Male Contraception: Pill PAST MEDICAL HISTORY Diagnosis Date Dermoid cyst fracture right wrist-roller skating Infertility, female PMH - PAST MEDICAL HISTORY OF color vision normal PMH - PAST MEDICAL HISTORY OF varicella at age 6 years PMH - PAST MEDICAL HISTORY OF 10/03 fractured right wrist PMH - PAST MEDICAL HISTORY OF bilateral kidney reflux surgery @ 7 years of age PAST SURGICAL HISTORY Procedure Laterality Date DELIVERY ONLY 11/08/2021 LTCS DELIVERY ONLY 03/13/2020 OOPHORECTOMY PARTIAL/TOTAL UNI/BI 12/2018 left ovary for dermoid cyst URETEROPLASTY PLASTIC OPERATION URETER FAMILY HISTORY Problem Relation Age of Onset No Known Problems Mother other (anemia) Father other (PCOS) Sister No Known Problems Sister No Known Problems Maternal Grandmother Heart Maternal Grandfather No Known Problems Paternal Grandmother Heart Paternal Grandfather Diabetes Other maternal side No Known Problems Son SOCIAL HISTORY Social History Tobacco Use Smoking status: Never Smokeless tobacco: Never Vaping Use Vaping Use: Never used Substance Use Topics Alcohol use: Not Currently Comment: occasionally drinks Drug use: No REVIEW OF SYSTEMS Abdomen: No abdominal pain, nausea, vomiting, diarrhea, or constipation. No bloating, early satiety, indigestion, or increased flatulence. Bladder: No dysuria, gross hematuria, urinary frequency, urinary urgency, or incontinence. Breast: No breast lumps, nipple d/c, overlying skin changes, redness or skin retraction. Allergies and current medication updated:Yes EXAM: BP 108/62 Ht 5' 6 (1.68m) Wt 180 lb (81.6kg) LMP 03/09/2023 BMI 29.07 kg/(m^2). GENERAL: pleasant, female in no apparent distress HEENT: Normocephalic, atraumatic, mucus membranes moist, and no lesions NECK: Supple, full range of motion, no adenopathy, and thyroid normal DERMATOLOGY: Normal, without lesions, non-icteric, and non-hirsute BREAST: soft, non-tender, symmetric, no dominant mass, normal nipple-areolar complex, no lymphadenopathy, and no nipple discharge ABDOMEN: soft, non-tender, and no masses PELVIC: external genitalia normal, normal Bartholin's glands, urethra, Jenison's glands, no vulvar lesions, no cervical lesions, good vaginal support, physiologic discharge present, normal appearing perineal body and perianal region BIMANUAL: uterus normal size, shape and consistency, no adnexal masses, and non-tender RECTOVAGINAL: deferred. NEURO: alert and oriented x3,exam grossly non-focal EXTREMITIES: normal ASSESSMENT/PLAN: 1) Health maintenance: Pap done with HPV. Mammogram starting age 40. Nutrition, exercise and routine health maintenance exams reviewed. HPV vaccine: completed series 2) Contraception: condoms. Contraceptive options reviewed and information provided. 3) STD screening: Declined STD check. 4) Follow up one year or sooner as needed Cyndie Fontenot MD documented in this encounterC[facility] Procedure [facility]01-16-2023 Miscellaneous Notes* Telephone Encounter - Cyndie Luz MD - 07/17/2022 1:29 PM EST Yes, agree with continue taking pills. Will hopefully get better. documented in this encounterCleveland [facility]06-27-2022 History of Present illness Narrative* Cyndie Luz MD - 12/26/2021 4:19 PM EDT VISIT Tami Stevens is a 31 year old year old here for visit. Delivery Summary: cs ROS/ Recovery: Feeding: Breast feeding problems: None Menses since delivery: none Menstrual pattern prior to : Irregular periods [place] since delivery: Not resumed Depression: denies symptoms of depression. OB Depression and Anxiety Screening- This Encounter (since 12/25/2021) Over the past 2 weeks have you felt down, depressed, or hopeless? Negative Over the past two weeks, have you felt little interest or pleasure in doing things? Negative Feeling nervous, anxious or on edge 0-Not at all Not being able to stop or control worrying 0-Not al all Anxiety Pre-Screening Total (If >/= 3 additional questions will be reviewed) 0 Emotional support: Yes Bowel symptoms: Negative for abdominal discomfort, blood in stools or black stools and change in bowel habits Abdomen: She reports no incisional redness, tenderness, erythema Bladder symptoms: No dysuria, gross hematuria, urinary frequency, urinary urgency, or incontinence Other issues: None Last Pap: 2019 normal HPV: N/A PAST MEDICAL HISTORY Diagnosis Date Dermoid cyst fracture right wrist-roller skating Infertility, female PMH - PAST MEDICAL HISTORY OF color vision normal PMH - PAST MEDICAL HISTORY OF varicella at age 6 years PMH - PAST MEDICAL HISTORY OF 10/03 fractured right wrist PMH - PAST MEDICAL HISTORY OF bilateral kidney reflux surgery @ 7 years of age PAST SURGICAL HISTORY Procedure Laterality Date DELIVERY ONLY 11/08/2021 LTCS DELIVERY ONLY 03/13/2020 OOPHORECTOMY PARTIAL/TOTAL UNI/BI 12/2018 left ovary for dermoid cyst URETEROPLASTY PLASTIC OPERATION URETER FAMILY HISTORY Problem Relation Age of Onset No Known Problems Mother other (anemia) Father other (PCOS) Sister No Known Problems Sister No Known Problems Maternal Grandmother Heart Maternal Grandfather No Known Problems Paternal Grandmother Heart Paternal Grandfather Diabetes Other maternal side No Known Problems Son Social History Tobacco Use Smoking status: Never Smoker Smokeless tobacco: Never Used Vaping Use Vaping Use: Never used Substance Use Topics Alcohol use: Not Currently Comment: occasionally drinks Drug use: No PHYSICAL EXAMINATION: BP 98/56 Wt 186 lb (84.4kg) LMP 01/31/2021 GENERAL: pleasant, female in no apparent distress HEENT: Normocephalic, atraumatic, mucus membranes moist and no lesions NECK: Supple, full range of motion, no adenopathy and thyroid normal DERMATOLOGY: Normal, without lesions, non-icteric and non-hirsute BREAST: soft, non-tender, symmetric, no dominant mass, normal nipple-areolar complex, no lymphadenopathy and no nipple discharge ABDOMEN: soft, non-tender and no masses. INCISION: No incisional redness, swelling, or drainage PELVIC: external genitalia normal, normal Bartholin's glands, urethra, Jenison's glands, no vulvar lesions, no cervical lesions, good vaginal support, physiologic discharge present, normal appearing perineal body and perianal region BIMANUAL: uterus normal size, shape and consistency, no adnexal masses and non-tender NEURO: alert and oriented x3,exam grossly non-focal EXTREMITIES: normal ASSESSMENT AND PLAN: 31 year old status post CS with normal course. Contraception plan: Oral contraceptives Follow up: Prescription given per orders, Progesterone only OCP - patient will call when no longer , RTC for annual exams and PRN Cyndie Fontenot MD documented in this encounterC[facility]05-27-2022 Miscellaneous Notes* Telephone Encounter - Pita Charles APRN.CNP - 11/25/2021 4:36 PM EDT Order sign. Pita Charles APRN.CNP * Telephone Encounter - Mary Velazquez RN - 11/25/2021 8:50 AM EDT 11/08/21 Received order for a breast pump from [facility]. To [facility] to sign. Mary Velazquez RN documented in this encounterCleveland Clinic [facility]05-11-2022 History of Present illness Narrative* Smitha Carter RN - 11/09/2021 11:17 AM EDT Patient delivered via repeat by Dr. Luz on 11/08/21 at [facility]. See OB history. Smitha Carter RN documented in this encounterC[facility]05-03-2022 History of Present illness Narrative* Cyndie Luz MD - 11/01/2021 4:19 PM EDT Pre-Op History and Physical HPI: The patient is a 31 year old female presenting for pre-operative visit. She is scheduled for , for elective Repeat Cs on . Procedure discussed along with risks, benefits and complications. Other/ alternatives discussed for management. Consent form signed? Yes. PAST MEDICAL HISTORY Diagnosis Date Dermoid cyst fracture right wrist-roller skating Infertility, female PMH - PAST MEDICAL HISTORY OF color vision normal PMH - PAST MEDICAL HISTORY OF varicella at age 6 years PMH - PAST MEDICAL HISTORY OF 10/03 fractured right wrist PMH - PAST MEDICAL HISTORY OF bilateral kidney reflux surgery @ 7 years of age PAST SURGICAL HISTORY Procedure Laterality Date OOPHORECTOMY PARTIAL/TOTAL UNI/BI 12/2018 left ovary for dermoid cyst URETEROPLASTY PLASTIC OPERATION URETER Current Outpatient Medications Medication Sig Dispense Refill Qjtqyqzo-Ng-Wra-Fe-FA ( VITAMIN) tab Take 1 tablet by mouth. No current facility-administered medications for this visit. ALLERGIES: Patient has no known allergies. PERSONAL HISTORY: Social History Tobacco Use Smoking status: Never Smoker Smokeless tobacco: Never Used Vaping Use Vaping Use: Never used Substance Use Topics Alcohol use: Not Currently Comment: occasionally drinks Drug use: No FAMILY HISTORY: FAMILY HISTORY Problem Relation Age of Onset No Known Problems Mother other (anemia) Father other (PCOS) Sister No Known Problems Sister No Known Problems Maternal Grandmother Heart Maternal Grandfather No Known Problems Paternal Grandmother Heart Paternal Grandfather Diabetes Other maternal side No Known Problems Son REVIEW OF SYMPTOMS: negative except as noted above PHYSICAL EXAMINATION: VITALS: Blood pressure 116/64, weight 215 lb (97.5 kg), last menstrual period 01/31/2021, currentlybreastfeeding. GENERAL: The patient is well nourished, well hydrated in no acute distress. , The patient is oriented to time, place, and person. NECK: full range of motion ABD: soft, gravid, non tender IMPRESSION: @ 38.2 weeks- scheduled cs at 39.2 weeks PLAN: Repeat elective CS Pt has been counseled on risks/benefits and alternatives of surgery including but not limited to anesthesia, bleeding, infection, injury to pelvic structures including bowel, bladder, ureters and vessels. Pt wishes to proceed with surgery at this time. COVID testing ordered Pre and post op instructions reviewed I have reviewed and updated past medical and surgical history, medications and allergies Cyndie Luz MD documented in this encounterC[facility]05-03-2022 Miscellaneous Notes* Quick Notes - Cyndie Luz MD - 11/01/2021 4:18 PM EDT DM- Pt doing well today. Denies Vaginal Bleeding, Leaking fluid, or contractions. Pt reports good movement. Kick counts and labor reviewed. CS pre op today. Cyndie Fotnenot MD documented in this encounterCleveland Clinic [facility]05-03-2022 Instructions* Patient Instructions* Shayy Abdalla Marisela - 11/01/2021 4:04 PM EDT SEQUENTIAL SCREENINGS [facility] offers sequential screenings for women who are interested in screenings for chromosomal abnormalities and certain defects during a . The sequential screen combinesultrasound and blood tests to determine the risk of chromosomal abnormalities, including Down's Syndrome (Trisomy 21) and Trisomy 18, as well as open neural tube defects including spina bifida. Ultrasound examination is performed between 11 weeks and 13 weeks gestational age. Blood tests are drawn after the ultrasound and again later in the between 15 and 21 weeks gestational age. Please let your physician know if you are interested in this testing. It will require an appointment withour wastewater technician. This is not an ultrasound performed by a physician in our office during a routine visit. SIGNS AND SYMPTOMS OF LABOR 1. Contractions every 10 minutes or more often 2. Clear, pink, or brownish fluid (water) leaking from vagina 3. Feeling that baby is pushing down, pressure 4. Low, dull backache 5. Cramps that feel like a period 6. Cramps with or without diarrhea If you notice any of the above symptoms, contact our office at [phone] and ask to speak with anurse. After hours, you can call doctors registry at [phone] OR call [facility] at [phone] ask to have the doctor seasonal tax preparer paged. If you consider this an emergency, dial 9-- or go to your nearest emergency department. NEED HELP? Are you dealing with a violent or abusive relationship? Are you a victim of rape or sexual assult? Call [facility] ([place]) 24 hour Crisis Hotline: 825.421.5294 or 183-969-1465. MANUAL Your Guide to a Healthy manual is now on-line. Visit [email or web address] to download your free copy documented in this encounterCleveland Clinic [facility]04-26-2022 Miscellaneous Notes* Quick Notes - Cyndie Luz MD - 10/25/2021 2:48 PM EDT DM- Pt doing well today. Denies Vaginal Bleeding, Leaking fluid, or contractions. Pt reports good movement. Pt requesting to move Cs up to 39+ weeks. Pt reports not feeling well- has some nausea and abdominal pain. Denies fevers. Is tolerating food and fluids today. Sister had GI bug over weekend. Abd: soft, gravid, tender to palaption in RUQ, RLQ and periumbilical region. Advised patient that I can't r/o appendicitis without imaging- likely GI bug but recommendation forER. ER was called and notified that patient may come in for evaluation and possible CT scan. Kick counts reviewed. Labor reviewed. Cyndie Fontenot MD documented in this encounterC[facility]04-26-2022 Instructions* Patient Instructions* Shayy Abdalla Ma - 10/25/2021 2:31 PM EDT SEQUENTIAL SCREENINGS [facility] offers sequential screenings for women who are interested in screenings for chromosomal abnormalities and certain defects during a . The sequential screen combinesultrasound and blood tests to determine the risk of chromosomal abnormalities, including Down's Syndrome (Trisomy 21) and Trisomy 18, as well as open neural tube defects including spina bifida. Ultrasound examination is performed between 11 weeks and 13 weeks gestational age. Blood tests are drawn after the ultrasound and again later in the between 15 and 21 weeks gestational age. Please let your physician know if you are interested in this testing. It will require an appointment withour wastewater technician. This is not an ultrasound performed by a physician in our office during a routine visit. SIGNS AND SYMPTOMS OF LABOR 1. Contractions every 10 minutes or more often 2. Clear, pink, or brownish fluid (water) leaking from vagina 3. Feeling that baby is pushing down, pressure 4. Low, dull backache 5. Cramps that feel like a period 6. Cramps with or without diarrhea If you notice any of the above symptoms, contact our office at [phone] and ask to speak with anurse. After hours, you can call doctors registry at [phone] OR call [facility] at [phone] ask to have the doctor seasonal tax preparer paged. If you consider this an emergency, dial 8-8-2 or go to your nearest emergency department. NEED HELP? Are you dealing with a violent or abusive relationship? Are you a victim of rape or sexual assult? Call [facility] ([place]) 24 hour Crisis Hotline: 464.657.9978 or 026-508-2241. MANUAL Your Guide to a Healthy manual is now on-line. Visit [email or web address] to download your free copy documented in this encounterCleveland Clinic [facility]04-20-2022 Miscellaneous Notes* Quick Notes - Cyndie Luz MD - 10/19/2021 2:22 PM EDT DM- Pt doing well today. Denies Vaginal Bleeding, Leaking fluid, or contractions. Pt reports good movement. Pt not sure she wants TOLAC- will considering moving cs to 39 weeks vs 40 weeks- pt to call office if wants date moved. Growth us pending today. RTO one week. Kick counts and labor reviewed. GBS today. Cyndie Fontenot MD documented in this encounterC[facility]04-20-2022 Instructions* Patient Instructions* Shayy Abdalla Ma - 10/19/2021 1:37 PM EDT SEQUENTIAL SCREENINGS [facility] offers sequential screenings for women who are interested in screenings for chromosomal abnormalities and certain defects during a . The sequential screen combinesultrasound and blood tests to determine the risk of chromosomal abnormalities, including Down's Syndrome (Trisomy 21) and Trisomy 18, as well as open neural tube defects including spina bifida. Ultrasound examination is performed between 11 weeks and 13 weeks gestational age. Blood tests are drawn after the ultrasound and again later in the between 15 and 21 weeks gestational age. Please let your physician know if you are interested in this testing. It will require an appointment withour wastewater technician. This is not an ultrasound performed by a physician in our office during a routine visit. SIGNS AND SYMPTOMS OF LABOR 1. Contractions every 10 minutes or more often 2. Clear, pink, or brownish fluid (water) leaking from vagina 3. Feeling that baby is pushing down, pressure 4. Low, dull backache 5. Cramps that feel like a period 6. Cramps with or without diarrhea If you notice any of the above symptoms, contact our office at [phone] and ask to speak with anurse. After hours, you can call doctors registry at [phone] OR call [facility] at [phone] ask to have the doctor seasonal tax preparer paged. If you consider this an emergency, dial 9-7-4 or go to your nearest emergency department. NEED HELP? Are you dealing with a violent or abusive relationship? Are you a victim of rape or sexual assult? Call [facility] [place] [facility] 24 hour Crisis Hotline: 159.635.5706 or 095-793-0663. MANUAL Your Guide to a Healthy manual is now on-line. Visit [email or web address] to download your free copy documented in this encounterCleveland Clinic [facility]04-05-2022 Miscellaneous Notes* Telephone Encounter - Mary Velazquez RN - 10/04/2021 10:23 AM EDT Patient notified. Ok with appointment time. Mary Highman RN * Telephone Encounter - Marija Tran RN - 10/04/2021 9:22 AM EDT Left message for patient to return phone call, I did go ahead and schedule her for an appt at 1:30 October 19. Her appt with Dr Luz is at 2:30. Please confirm with her that this works for her whenshe calls back * Telephone Encounter - Cyndie Luz MD - 10/03/2021 9:41 PM EDT Please call and assist in scheduling Growth us- I ordered after she left appt. Ok to combine at next appt if able. documented in this encounterCleveland Clinic [facility]04-04-2022 Miscellaneous Notes* Quick Notes - Cyndie Luz MD - 10/03/2021 9:38 PM EDT DM- Pt doing well today. Denies Vaginal Bleeding, Leaking fluid, or contractions. Pt reports good movement. Pt would like TOLAC if spontaneous labor- but understands we will not induce with unfavorable cervix- pt is scheduled for repeat cs at 40 weeks if no active labor prior. TOLAC consent si gned today. Growth us ordered. RTO 2 wks. Kick counts reviewed. Cyndie Luz MD documented in this encounterCleveland Clinic [facility]04-04-2022 Instructions* Patient Instructions* Shayy Abdalla Ma - 10/03/2021 4:27 PM EDT SEQUENTIAL SCREENINGS [facility] offers sequential screenings for women who are interested in screenings for chromosomal abnormalities and certain defects during a . The sequential screen combinesultrasound and blood tests to determine the risk of chromosomal abnormalities, including Down's Syndrome (Trisomy 21) and Trisomy 18, as well as open neural tube defects including spina bifida. Ultrasound examination is performed between 11 weeks and 13 weeks gestational age. Blood tests are drawn after the ultrasound and again later in the between 15 and 21 weeks gestational age. Please let your physician know if you are interested in this testing. It will require an appointment withour wastewater technician. This is not an ultrasound performed by a physician in our office during a routine visit. SIGNS AND SYMPTOMS OF LABOR 1. Contractions every 10 minutes or more often 2. Clear, pink, or brownish fluid (water) leaking from vagina 3. Feeling that baby is pushing down, pressure 4. Low, dull backache 5. Cramps that feel like a period 6. Cramps with or without diarrhea If you notice any of the above symptoms, contact our office at [phone] and ask to speak with anurse. After hours, you can call doctors registry at [phone] OR call [facility] at [phone] ask to have the doctor seasonal tax preparer paged. If you consider this an emergency, dial [phone]- or go to your nearest emergency department. NEED HELP? Are you dealing with a violent or abusive relationship? Are you a victim of rape or sexual assult? Call [facility] [place] ([place] 24 hour Crisis Hotline: 551.201.1948 or 610-112-9068. MANUAL Your Guide to a Healthy manual is now on-line. Visit [email or web address] to download your free copy [facility] of Past illness Narrative* Problem Noted Date Resolved Date resulting from ass isted reproductive technology, antepartum 08/25/2019 04/19/2020 Overview: 08/25/2019Patient has been attempting since 03/2018. Transferring from [facility] in [place]. Records have been faxed here. Had embryo transfer 06/16/2019.Had pink spotting from 6-8 weeks . Denies any other problems this . TKRN Rubella non-immune status, antepartum 08/25/2019 04/19/2020 documented as of this encounter (statuses as of 10/04/2021) [facility] History of Past illness Narrative* Problem Noted Date Resolved Date resulting from ass isted reproductive technology, antepartum 08/25/2019 04/19/2020 Overview: 08/25/2019Patient has been attempting since 03/2018. Transferring from [facility] in [place]. Records have been faxed here. Had embryo transfer 06/16/2019.Had pink spotting from 6-8 weeks . Denies any other problems this . TKRN Rubella non-immune status, antepartum 08/25/2019 04/19/2020 documented as of this encounter (statuses as of 10/04/2021) [address]24-2020 History of Past illness Narrative* Problem Noted Date Resolved Date resulting from ass isted reproductive technology, antepartum 08/25/2019 04/19/2020 Overview: 08/25/2019Patient has been attempting since 03/2018. Transferring from [facility] in [place]. Records have been faxed here. Had embryo transfer 06/16/2019.Had pink spotting from 6-8 weeks . Denies any other problems this . TKRN Rubella non-immune status, antepartum 08/25/2019 04/19/2020 documented as of this encounter (statuses as of 10/19/2021) [facility] History of Past illness Narrative* Problem Noted Date Resolved Date resulting from ass isted reproductive technology, antepartum 08/25/2019 04/19/2020 Overview: 08/25/2019Patient has been attempting since 03/2018. Transferring from [facility] in [place]. Records have been faxed here. Had embryo transfer 06/16/2019.Had pink spotting from 6-8 weeks . Denies any other problems this . TKRN Rubella non-immune status, antepartum 08/25/2019 04/19/2020 documented as of this encounter (statuses as of 10/19/2021) [facility] History of Past illness Narrative* Problem Noted Date Resolved Date resulting from ass isted reproductive technology, antepartum 08/25/2019 04/19/2020 Overview: 08/25/2019Patient has been attempting since 03/2018. Transferring from [facility] in [place]. Records have been faxed here. Had embryo transfer 06/16/2019.Had pink spotting from 6-8 weeks . Denies any other problems this . TKRN Rubella non-immune status, antepartum 08/25/2019 04/19/2020 documented as of this encounter (statuses as of 10/25/2021) [facility] of Past illness Narrative* Problem Noted Date Resolved Date resulting from ass isted reproductive technology, antepartum 08/25/2019 04/19/2020 Overview: 08/25/2019Patient has been attempting since 03/2018. Transferring from [facility] in [place]. Records have been faxed here. Had embryo transfer 06/16/2019.Had pink spotting from 6-8 weeks . Denies any other problems this . TKRN Rubella non-immune status, antepartum 08/25/2019 04/19/2020 documented as of this encounter (statuses as of 11/01/2021) [facility] of Past illness Narrative* Problem Noted Date Resolved Date resulting from ass isted reproductive technology, antepartum 08/25/2019 04/19/2020 Overview: 08/25/2019Patient has been attempting since 03/2018. Transferring from [facility] in [place]. Records have been faxed here. Had embryo transfer 06/16/2019.Had pink spotting from 6-8 weeks . Denies any other problems this . TKRN Rubella non-immune status, antepartum 08/25/2019 04/19/2020 documented as of this encounter (statuses as of 11/02/2021) [facility] of Past illness Narrative* Problem Noted Date Resolved Date resulting from ass isted reproductive technology, antepartum 08/25/2019 04/19/2020 Overview: 08/25/2019Patient has been attempting since 03/2018. Transferring from [facility] in [place]. Records have been faxed here. Had embryo transfer 06/16/2019.Had pink spotting from 6-8 weeks . Denies any other problems this . TKRN Rubella non-immune status, antepartum 08/25/2019 04/19/2020 documented as of this encounter (statuses as of 11/09/2021) [facility] of Past illness Narrative* Problem Noted Date Resolved Date resulting from ass isted reproductive technology, antepartum 08/25/2019 04/19/2020 Overview: 08/25/2019Patient has been attempting since 03/2018. Transferring from [facility] in [place]. Records have been faxed here. Had embryo transfer 06/16/2019.Had pink spotting from 6-8 weeks . Denies any other problems this . TKRN Rubella non-immune status, antepartum 08/25/2019 04/19/2020 documented as of this encounter (statuses as of 11/25/2021) [facility] History of Past illness Narrative* Problem Noted Date Resolved Date resulting from ass isted reproductive technology, antepartum 08/25/2019 04/19/2020 Overview: 08/25/2019Patient has been attempting since 03/2018. Transferring from [facility] in [place]. Records have been faxed here. Had embryo transfer 06/16/2019.Had pink spotting from 6-8 weeks . Denies any other problems this . TKRN Rubella non-immune status, antepartum 08/25/2019 04/19/2020 documented as of this encounter (statuses as of 12/26/2021) [address]24-2020 History of Past illness Narrative* Problem Noted Date Resolved Date resulting from ass isted reproductive technology, antepartum 08/25/2019 04/19/2020 Overview: 08/25/2019Patient has been attempting since 03/2018. Transferring from [facility] in [place]. Records have been faxed here. Had embryo transfer 06/16/2019.Had pink spotting from 6-8 weeks . Denies any other problems this . TKRN Rubella non-immune status, antepartum 08/25/2019 04/19/2020 documented as of this encounter (statuses as of 02/10/2022) [facility] of Past illness Narrative* Problem Noted Date Resolved Date resulting from ass isted reproductive technology, antepartum 08/25/2019 04/19/2020 Overview: 08/25/2019Patient has been attempting since 03/2018. Transferring from [facility] in [place]. Records have been faxed here. Had embryo transfer 06/16/2019.Had pink spotting from 6-8 weeks . Denies any other problems this . TKRN Rubella non-immune status, antepartum 08/25/2019 04/19/2020 documented as of this encounter (statuses as of 07/17/2022) [facility] History of Past illness Narrative* Problem Noted Date Diagnosed Date Resolved Date resulting from ass isted reproductive technology, antepartum 08/25/201904/01 Overview: 08/25/2019Patient has been attempting since 03/2018. Transferring from [facility] in [place]. Records have been faxed here. Had embryo transfer 06/16/2019.Had pink spotting from 6-8 weeks . Denies any other problems this . TKRN Rubella non-immune status, antepartum 08/25/2019 04/19/2020 documented as of this encounter (statuses as of 03/20/2023) [facility]. Domingo [facility] October 19, 2022 12:22pm Note Date/Time October 19, 2022 12: 20pm [facility] Medical Records Department [address] [place] [address] Instructions for Home/Discharge Instructions 10/19/22 1219 MR#: [id number] Acct: [id number] Name: TAMI STEVENS Rep #: [id number] : 1990 32 From: Shira Florence PCP: Dr. Nicci Costello MD Status:REG SD Discharge Instructions Diet Discharge Diet: No restrictions Activity Discharge Activity: Return to Normal Activity May resume sexual activity in: No Restrictions Dressing / Incision Call your doctor if you observe: Fever of 101 or Higher, Inability to urinate and Inability to have a bowel movement Follow Up Care Please Follow Up With: Shira Domingo MD When: call office for appt, KUB prior to appt Test Results: Test results from this visit will be discussed in further detail at your follow- up appointment, if applicable. Discharge Plan Admission Attending Provider: Shira Domingo Primary Care Provider: Nicci Costello Discharge Orders/Prescriptions Prescriptions: New oxycodone-acetaminophen [Percocet] 5-325 mg tablet 1 tab PO Q8H PRN (Reason: pain) 3 Days Qty: 10 0RF cephalexin [cephalexin] 500 mg capsule 500 mg PO Q12 3 Days Qty: 6 0RF Continued norgestimate-ethinyl estradiol [Sprintec (28)] 0.25-35 mg-mcg Tablet 1 tab PO DAILY Referrals / Follow Up: Nicci Costello MD [Primary Care Provider] - Disposition Disposition (needs filled in before D/C Order can be placed): Home, Self Care 10/19/22 1222<Electronically signed by Shira Domingo MD>Shira Domingo MD CC: Dr. Nicci Costello MD ~ Signed [facility] Work Phone: Evaluation note* Diagnosis Encounter for supervision of other normal in third trimester- Primary History of section Other postprocedural status 34 weeks gestation of state, incidental [facility] Diagnosis Suspected problem with growth not found- Primary 36 weeks gestation of state, incidental documented in this encounter [facility] note* Diagnosis with history of section, antepartum- Primary 36 weeks gestation of state, incidental documented in this encounter [facility] note* Diagnosis Abdominal pain during in third trimester- Primary 37 weeks gestation of state, incidental [facility] noteNo assessment information availableWAs[facility] Work Phone: Evaluation note* Diagnosis with history of section, antepartum- Primary 38 weeks gestation of state, incidental documented in this encounter [facility] note* Diagnosis Onset Date Resolution Status 39 weeks gestation of acute Delivery by section acute Status post repeat low transverse section acute [facility] Work Phone: Evaluation note* Diagnosis Onset Date Resolution Status Delivery by section resolved Status post repeat low transverse section resolved [facility] Work Phone: Evaluation note* Diagnosis care and examination- Primary Routine follow-up documented in this encounter [facility] note* Diagnosis Encounter for gynecological examination (general) (routine) without abnormal findings- Primary Screening for cervical cancer Screening for malignant neoplasm of the cervix Encounter for screening for human papillomavirus (HPV) Special screening examination for human papillomavirus (HPV) documented in this encounter [facility] Narrative No data available for this section [facility] Discharge instructions No data available for this section [facility] Progress note No data available for this section [facility] Reason for referral (narrative)* Diagnostic Procedure Only (Routine) - Pending Review Specialty Diagnoses / Procedures Referred By Darling chapman Referred To Contact [facility] Diagnoses 34 weeks gestation of History of section Procedures OBSTETRIC ULTRASOUND WHI US PREG UTERUS AFTER 1ST TRIMEST GESTATION Cyndie Petty MD [facility] [place] [address] [address] [facility] [address] [place] [id number] Referral ID Status Reason Start Date Expiration Date Visits Requested Visits Authorized [id number] Pending Review Auto-Generat ed Referral 10/03/2021 10/03/2022 1 1 [facility] (narrative)No reason for referral information [facility] Work Phone: Summary Purpose Family History No Family History Records Found No data available for this section No Family History Records FoundNo Family History Records FoundNo Family History Records Found Advance Directives No Advanced Directives Records Found Advance Directive Response Recorded Date/ Time Living Will No October 25, 2021 7:03pm Power of Resort Manager No October 25 7:03pm Advance Directive Response Recorded Date/ Time Living Will No November 08, 2021 1 0:52am Power of Resort Manager No November 08, 2021 10:52am Advance Directive Response Recorded Date/ Time Living Will No November 30, 2021 9 :24pm Power of Resort Manager No November 30, 2021 9:24pm Advance Directive Response Recorded Date/ Time Living Will No October 12, 2022 10:55am Power of Resort Manager No October 12 10:55am Chief Complaint and Reason for Visit Chief Complaint RIGHT FLANK PAIN ABD Chief Complaint RIGHT FLANK PAIN ABD PRE OP Chief Complaint RIGHT FLANK PAIN ABD PRE OP REPEAT Reason for Visit 39 weeks gestation o f Delivery by section Status post repeat low 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 Complaint RIGHT FLANK PAIN ABD PRE OP REPEAT HEMATURIA flank Reason for Visit Delivery by section Status post repeat low 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 Complaint KUB- KIDNEY STONES Chief Complaint KUB- KIDNEY STONES LT ESWL, FLUORO OF RT STONES Chief Complaint Admit Date EMPLOYEE LABS March 16, 2025 6:57am UTI burning low back pain [facility] 2024 11:22am Chief Complaint Admit Date EMPLOYEE LABS March 16, 2025 6:57am UTI burning low back pain night sweats [facility] 2024 11:22am STONES, BACK PAIN March 19, 2025 1:43pm VEIN COMPRESSION SYNDROME March 1:49pm Reason for Visit Admit Date Flank pain March 17, 2025 11:22am Kidney stones March 17, 2025 11:22am Other specified disorders of bladder Sep tember 2024 11:22am Urge incontinence March 17, 2025 11:22am UTI (urinary tract infection) March 17, 2025 11:22am Additional Source Comments INFORMATION SOURCE (unrecogn ized section and content) DATE CREATED AUTHOR 05/08/2021 Jasvir Gardinerit al DATE CREATED AUTHOR AUTHOR'S ORGANIZ ATION 01/01/2025 [facility] DATE CREATED AUTHOR AUTHOR'S ORGANIZ ATION 04/23/2025 [facility] DATE CREATED AUTHOR AUTHOR'S ORGANIZ ATION 05/08/2025 [facility] Source Comments (unrecognize d section and content) In the event this informatio n is protected by the Federal Confidentiality of Alcohol and Drug Abuse Patient Records regulations: The Federal rules restrict any use of the information to criminally investigate or prosecute any alcohol or drug abuse patient.[facility] Hospital[facility] the event this information is protected by the Federal Confidentiality of Alcohol and Drug Abuse Patient Records regulations: The Federal rules restrict any use of the information to criminally investigate or prosecute any alcohol or drug abuse patient.[facility] HospitalIn the event this information is protected by the Federal Confidentiality of Alcohol and Drug Abuse Patient Records regulations: The Federal rules restrict any use of the information to criminally investigate or prosecute any alcohol or drug abuse patient.[facility] HospitalIn the event this information is protected by the Federal Confidentiality of Alcohol and Drug Abuse Patient Records regulations: The Federal rules restrict any use of the information to criminally investigate or prosecute any alcohol or drug abuse patient.[facility] HospitalIn the event this information is protected by the Federal Confidentiality of Alcohol and Drug Abuse Patient Records regulations: The Federal rules restrict any use of the information to criminally investigate or prosecute any alcohol or drug abuse patient.[facility] HospitalIn the event this information is protected by the Federal Confidentiality of Alcohol and Drug Abuse Patient Records regulations: The Federal rules restrict any use of the information to criminally investigate or prosecute any alcohol or drug abuse patient.[facility] HospitalIn the event this information is protected by the Federal Confidentiality of Alcohol and Drug Abuse Patient Records regulations: The Federal rules restrict any use of the information to criminally investigate or prosecute any alcohol or drug abuse patient.[facility] HospitalIn the event this information is protected by the Federal Confidentiality of Alcohol and Drug Abuse Patient Records regulations: The Federal rules restrict any use of the information to criminally investigate or prosecute any alcohol or drug abuse patient.[facility] HospitalIn the event this information is protected by the Federal Confidentiality of Alcohol and Drug Abuse Patient Records regulations: The Federal rules restrict any use of the information to criminally investigate or prosecute any alcohol or drug abuse patient.[facility] HospitalIn the event this information is protected by the Federal Confidentiality of Alcohol and Drug Abuse Patient Records regulations: The Federal rules restrict any use of the information to criminally investigate or prosecute any alcohol or drug abuse patient.[facility] HospitalIn the event this information is protected by the Federal Confidentiality of Alcohol and Drug Abuse Patient Records regulations: The Federal rules restrict any use of the information to criminally investigate or prosecute any alcohol or drug abuse patient.[facility] HospitalIn the event this information is protected by the Federal Confidentiality of Alcohol and Drug Abuse Patient Records regulations: The Federal rules restrict any use of the information to criminally investigate or prosecute any alcohol or drug abuse patient.[facility] HospitalIn the event this information is protected by the Federal Confidentiality of Alcohol and Drug Abuse Patient Records regulations: The Federal rules restrict any use of the information to criminally investigate or prosecute any alcohol or drug abuse patient.[facility] Reason for Visit (unrecogniz ed section and content) Reason Comments Care Specialty Diagnoses / Procedures Referred By Contac t Referred To Contact [facility] Diagnoses OB Procedures EST [facility] Cyndie Petty MD [address] [place] [address] Cyndie Petty MD [address] [place] [address] Referral ID Status Reason Start Date Expiration Date V isits Requested Visits Authorized [id number] Authorized 07/02/2021 07/01/2022 99 99 Reason Onset Date Comments Care 11/01/2021 Reason Onset Date Comments Care 10/03/2021 Specialty Diagnoses / Procedures Referred By Contac t Referred To Contact [facility] Diagnoses OB Procedures EST [facility] Cyndie Petty MD [address] [place] [address] Cyndie Petty MD [address] [place] [address] Reason Comments Future Appointment Reason Comments [place] Specialty Diagnoses / Procedures Referred By Contac t Referred To Contact [facility] Diagnoses 34 weeks gestation of History of section Procedures OBSTETRIC ULTRASOUND [facility] US PREG UTERUS AFTER 1ST TRIMEST GESTATION Cyndie Petty MD [address] [place] [address] [facility] [address] [facility] [place] [address] Referral ID Status Reason Start Date Expiration Date V isits Requested Visits Authorized [id number] Closed Auto-Generate d Referral 10/03/2021 10/03/2022 1 1 Reason Onset Date Comments Care 10/19/2021 Reason Onset Date Comments Care 10/25/2021 Specialty Diagnoses / Procedures Referred By Contac t Referred To Contact [facility] Diagnoses OB Procedures EST [facility] OB Eufemia Gonzales MD [address] [place] [address] Eufemia Gonzales MD [address] [place] [place] [address] Referral ID Status Reason Start Date Expiration Date V isits Requested Visits Authorized [id number] Authorized 07/02/2021 07/01/2022 99 99 Reason Comments Ob Delivery Note Reason Comments Breast Pump Reason Comments Yearly Exam Specialty Diagnoses / Procedures Referred By Contac t Referred To Contact [facility] Diagnoses Encounter for gynecological examination (general) (routine) without abnormal findings annual Procedures OFFICE/OUTPATIENT ESTABLISHED HIGH MDM 40-54 MIN WELLNESS EXAMS EST 18-39 YRS EST [facility] ANNUAL PATIENT Cyndie Petty MD [address] [place] [address] Cyndie Petty MD [address] [place] [address] Referral ID Status Reason Start Date Expiration Date Visits Re quested Visits Authorized [id number] Closed 03/02/2023 07/01/2023 1 1 Care Teams (unrecognized sec tion and content) Hotel Assistant Manager Relationship Specialty Start Date End Date Nicci Costello PCP - General Family Practice 12/29/13 Hotel Assistant Manager Relationship Specialty Start Date End Date Nicci Costello PCP - General Family Practice 12/29/13 Hotel Assistant Manager Relationship Specialty Start Date End Date Nicci Costello PCP - General Family Practice 12/29/13 Hotel Assistant Manager Relationship Specialty Start Date End Date Nicci Costello PCP - General Family Practice 12/29/13 Hotel Assistant Manager Relationship Specialty Start Date End Date Nicci Costello PCP - General Family Practice 12/29/13 Hotel Assistant Manager Relationship Specialty Start Date End Date Nicci Costello PCP - General Family Practice 12/29/13 Hotel Assistant Manager Relationship Specialty Start Date End Date Nicci Costello PCP - General Family Practice 12/29/13 Hotel Assistant Manager Relationship Specialty Start Date End Date Nicci Costello PCP - General Family Practice 12/29/13 Hotel Assistant Manager Relationship Specialty Start Date End Date Nicci Costello PCP - General Family Practice 12/29/13 Hotel Assistant Manager Relationship Specialty Start Date End Date Nicci Costello PCP - General Family Medicine 12/29/13 Team Status: Active Member Role Status Dates Dr. Nicci Costello MD Family Provider Active Dr. Nicci Costello MD Primary Care Provider Active Team Status: Inactive Member Role Status Dates Dr. Nicci Costello MD Primary Care Provider Active Dr. Shira Domingo MD Attending Provider, Referring Al monzon Active Hotel Assistant Manager Relationship Specialty Start Date End Date Nicci Costello PCP - General Family Medicine 12/29/13 Team Status: Active Member Role/Relationship Status Dates Dr. Clarke Chávez MD Primary Care Provider Active Team Status: Inactive Member Role/Relationship Status Dates Dr. Nicci Costello MD Primary Care Provider Active Start: December 30, 2024 Dr. Shira Domingo MD Attending Provider Active Start: December 30, 2024 Team Status: Active Member Role/Relationship Status Dates Dr. Clarke Chávez MD Primary Care Provider Active Start: March 16, 2025 Health Risk Assessment Attending Provider Active Start: March 16, 2025 Health Risk Assessment Referring Provider Active Start: March 16, 2025 Team Status: Inactive Member Role/Relationship Status Dates Dr. Clarke Chávez MD Primary Care Provider Active Start: March 17, 2025 End: March 17, 2025 Dr. Clarke Chávez MD Referring Provider Active Start: March 17, 2025 End: March 17, 2025 Dr. Shira Domingo MD Attending Provider Active Start: March 17, 2025 End: March 17, 2025 Team Status: Active Member Role/Relationship Status Dates Dr. Clarke Chávez MD Primary care physician Active Team Status: Inactive Member Role/Relationship Status Dates Dr. Nicci Costello MD Primary care physician Active Start: December 30, 2024 Dr. Shira Domingo MD Attending physician Active Start: December 30, 2024 Team Status: Active Member Role/Relationship Status Dates Dr. Clarke Chávez MD Primary care physician Active Start: March 16, 2025 Health Risk Assessment Attending physician Active Start: March 16, 2025 Health Risk Assessment Referring Provider Active Start: March 16, 2025 Team Status: Inactive Member Role/Relationship Status Dates Dr. Clarke Chávez MD Primary care physician Active Start: March 17, 2025 End: March 17, 2025 Dr. Clarke Chávez MD Referring Provider Active Start: March 17, 2025 End: March 17, 2025 Dr. Shira Domingo MD Attending physician Active Start: March 17, 2025 End: March 17, 2025 Team Status: Inactive Member Role/Relationship Status Dates Dr. Clarke Chávez MD Primary care physician Active Start: March 19, 2025 End: March 19, 2025 Dr. Shira Domingo MD Attending physician Active Start: March 19, 2025 End: March 19, 2025 Dr. Shira Domingo MD Referring Provider Active Start: March 19, 2025 End: March 19, 2025 Team Status: Active Member Role/Relationship Status Dates Dr. Clarke Chávez MD Primary care physician Active Start: March 30, 2025 Dr. Etta Lainez MD Attending physician Active Start: March 30, 2025 Dr. Etta Lainez MD Referring Provider Active Start: March 30, 2025 Team Status: Inactive Member Role/Relationship Status Dates Dr. Clarke Chávez MD Primary care physician Active Start: March 30, 2025 End: March 30, 2025 Dr. Etta Lainez MD Attending physician Active Start: March 30, 2025 End: March 30, 2025 Dr. Etta Lainez MD Referring Provider Active Start: March 30, 2025 End: March 30, 2025 Goals (unrecognized section and content) Goals may be documented in a n alternate sectionGoals may be documented in an alternate sectionGoals may be documented in an alternate sectionGoals may be documented in an alternate sectionGoals may be documented in an alternate sectionGoals may be documented in an alternate section No data available for this sectionGoals may be documented in an alternate sectionGoals may be documented in an alternate sectionGoals may be documented in an alternate section FOR RECORDS PERTAINING TO PATIENTS WHO ARE OR HAVE BEEN ENROLLED IN A CHEMICAL DEPENDENCY/SUBSTANCEABUSE PROGRAM, SOME INFORMATION MAY BE OMITTED. This clinical summary was aggregated from multiple sources. Caution should be exercised in using it in the provision of clinical care. This summary normalizes information from multiple sources, and as a consequence, information in this document may materially change the coding, format and clinical context of patient data. In addition, data may be omitted in some cases. CLINICAL DECISIONS SHOULD BE BASED ON THE PRIMARY CLINICAL RECORDS. [facility] [employer] [facility]. provides no warranty or guarantee of the accuracy or completeness of information in this document.
== END | disposition home or self-care (01) ==
LOC: CVS 07:51
PROVIDERS: PCP Family Medicine; Referring Provider Surgery Vascular Surgery; Visit Provider Surgery Vascular Surgery
DX: I87.1 Compression of vein (principal); I82.492 Acute embolism and thrombosis of other specified deep vein of left lower extremity; I87.2 Venous insufficiency (chronic) (peripheral); I83.891 Varicose veins of right lower extremity with other complications; I83.892 Varicose veins of left lower extremity with other complications; I83.893 Varicose veins of bilateral lower extremities with other complications
CPT/HCPCS: 93971